=== PATIENT | male | born 1950 | race Caucasian/White ===

== ENCOUNTER → 2016-12-21 | Day surgery (SDC) | payer MEDICARE ==
[~2016-12-21] MED LIST: ACETAMINOPHEN 325 MG TAB ONE; ADVA250A INH; ALBU0.08 NEB; ALEN1TAB48 PO; ALPR1TAB3 PO; AMBI5TAB PO; AMLO5TAB2 PO; CALC600T25 PO; CLON.1 PO; FEXO15TA PO; HYDR-3516 PO; LACTATED RINGER'S 1000 ML INJ 1,000 ML ONE; LOVA40TA PO; MIDAZOLAM HCL 2 MG/2 ML VIAL ONE; MONT10TA2 PO; MULT-6 PO; POTA10TA8 PO; PRED5TAB PO; PROPOFOL 500 MG/50 ML BTL IV ONE; SERT-132 PO; SPIRCAP INH; VITA100T2 PO; ZANT150T2 PO; ZOFR4TAB3 SL
== END | disposition home or self-care (01) ==
LOC: ESDC 08:29
PROVIDERS: ATTEND Internal Medicine Gastroenterology
DX: R19.7 Diarrhea, unspecified (principal); K21.9 Gastro-esophageal reflux disease without esophagitis; K57.90 Diverticulosis of intestine, part unspecified, without perforation or abscess without bleeding; D12.2 Benign neoplasm of ascending colon; D12.3 Benign neoplasm of transverse colon; K62.1 Rectal polyp; K29.70 Gastritis, unspecified, without bleeding; K20.9 Esophagitis, unspecified
CPT/HCPCS: 00740; 00810; 43239; 45380; 45385; 88305; 88312; J2250; J3010; J7120

== ENCOUNTER 2017-03-01 17:06 | Emergency (ER) | payer MEDICARE ==
[~2017-03-01] VITALS: Ht 177.8 cm; Wt 108.0 kg
[~2017-03-01 17:06] MED LIST changes: -ACETAMINOPHEN 325 MG TAB ONE; -ALEN1TAB48 PO; -LACTATED RINGER'S 1000 ML INJ 1,000 ML ONE; -MIDAZOLAM HCL 2 MG/2 ML VIAL ONE; -PROPOFOL 500 MG/50 ML BTL IV ONE
[2017-03-01 17:13] VITALS: BP 137/89; PULSE 99; RESP 20; TEMP 98.7; O2SAT 94
[2017-03-01] MEDS ORDERED: LIDOCAINE 1%/EPINEPHrine 1:100,000 SOLN 20 ML VIAL INFIL ONE (17:15)
[2017-03-01] MEDS ORDERED: SODIUM CHLOR 0.9% 1000 ML INJ 1,000 ML IV SCH (17:15)
[2017-03-01] MEDS ORDERED: SODIUM CHLORIDE 0.9% FLUSH 10 ML FLUSH IV FLUSH PRN (17:15)
--- NOTE | 2017-03-01 17:19 | PD ---
HPI Chief Complaint: Head Injury Time Seen by Provider: 17:11 Travel History International Travel<30 days: No Contact w/Intl Traveler<30days: No Traveled to known affect area: No History of Present Illness HPI 66-year-old male brought in by his for evaluation of a head injury. About one year ago the patient had a traumatic subdural hematoma that required craniotomy. Today he states he tripped and fell, striking his head on his desk at home at around 3:00 PM. He sustained a laceration to his head. He is complaining of some pain to this area. He is denying neck or back pain. No other injuries. States that he drinks alcohol occasionally and had a few sips of scotch today. PFSH Past Medical History Arthritis: Yes Asthma: Yes Autoimmune Disease: No Blood Disorders: No Anxiety: Yes Depression: No Heart Rhythm Problems: No Cancer: Yes Cardiovascular Problems: Yes (edema) High Cholesterol: Yes Chemotherapy: No Chest Pain: No Congestive Heart Failure: No COPD: Yes Cerebrovascular Accident: Yes Diabetes: No Diminished Hearing: No Endocrine: No Gastrointestinal Disorders: No GERD: No Glaucoma: No Genitourinary: Yes Headaches: Yes Hepatitis: No Hiatal Hernia: No Hypertension: Yes Immune Disorder: No Implanted Vascular Access Dvce: Yes (3 cages in spine and 2 screws each in cervical spine, steel implant R foot) Kidney Stones: Yes (2000) Musculoskeletal: Yes Neurologic: No Psychiatric: No Reproductive: No Respiratory: Yes (COPD/O2 NEEDED) Immunizations Current: Yes Migraines: No Myocardial Infarction: No Radiation Therapy: No Renal Failure: No Seizures: No Sickle Cell Disease: No Sleep Apnea: Yes Thyroid Disease: No Ulcer: No Past Surgical History Abdominal Surgery: Yes AICD: No Appendectomy: Yes Arteriovenous Shunt: No Cardiac Surgery: No Cholecystectomy: No Ear Surgery: No Endocrine Surgery: No Eye Surgery: No Genitourinary Surgery: No Gynecologic Surgery: No Insulin Pump: No Joint Replacement: Yes (BILAT TOTAL KNEE) Neurologic Surgery: Yes (left SDH drained 12/2015) Oral Surgery: No Pacemaker: No Thoracic Surgery: No Tonsillectomy: Yes Other Surgery: Yes (craniatomy,appendectomy, CTS surgery, 19 sinus surgeries) Social History Alcohol Use: Yes (1 pint of vodka per week ) Tobacco Use: Yes (QUIT 1999, had smoked 46 years.) Substance Use: No Allergies-Medications (Allergen,Severity, Reaction): Coded Allergies: Aspirin (Verified Allergy, Severe, ANAPHYLACTIC SHOCK, 03/01/17) SHOCK Nonsteroidal Anti-Inflammatory Agts (Verified Allergy, Severe, ANAPHYLACTIC SHOCK, 03/01/17) SHOCK Lisinopril (Verified Allergy, Mild, 03/01/17) Reported Meds & Prescriptions Reported Meds & Active Scripts Active Ambien (Zolpidem Tartrate) 5 Mg Tab 5 Mg PO HS PRN 10 Days Reported Alendronate (Alendronate Sodium) 70 Mg Tab 70 Mg PO Q7D Spiriva Handihaler (Tiotropium Inh) 18 Mcg Cap 18 Mcg INH DAILY 1 capsule = 18 mcg Potassium Chloride CR (Potassium Chloride) 10 Meq Tab 10 Meq PO BID Zantac (Ranitidine HCl) 150 Mg Tab 150 Mg PO BID Singulair (Montelukast Sodium) 10 Mg Tab 10 Mg PO HS Prednisone 5 Mg Tab 5 Mg PO DAILY Lovastatin 40 Mg Tab 40 Mg PO DAILY Centrum (Multiple Vitamins W/ Minerals) 1 Tab 1 Tab PO DAILY Calcium (Calcium Carbonate) 600 Mg Tab 1 Tab PO BID Alprazolam 1 Mg Tab 2 Mg PO BID PRN Albuterol Neb (Albuterol Sulfate) 2.5 Mg/3 Ml Neb 2.5 Mg NEB QID NEB Jessica Allergy (Fexofenadine HCl) 180 Mg Tab 180 Mg PO HS Amlodipine (Amlodipine Besylate) 5 Mg Tab 5 Mg PO DAILY Advair Diskus Inh (Fluticasone-Salmeterol Inh) 250-50 Mcg/Blist Aer 1 Puff INH BID Rinse mouth after use. Review of Systems Except as stated in HPI: all other systems reviewed are Neg Physical Exam Narrative GENERAL: Well-developed, well-nourished, awake, alert, GCS 15, no acute distress. SKIN: Focused skin assessment warm/dry. Posterior/superior scalp with horizontal laceration approximately 5 cm in length, moderate depth, no visible contamination, no active bleeding, galea intact. HEAD: Atraumatic. Normocephalic. EYES: Pupils equal, round, 3 mm, reactive to light. No scleral icterus. No injection or drainage. ENT: No nasal bleeding or discharge. Mucous membranes pink and moist. NECK: Trachea midline. No JVD. No midline vertebral step-off or tenderness. CARDIOVASCULAR: Regular rate and rhythm. RESPIRATORY: No accessory muscle use. Clear to auscultation. Breath sounds equal bilaterally. GASTROINTESTINAL: Abdomen soft, non-tender, nondistended. MUSCULOSKELETAL: No obvious deformities. No clubbing. No cyanosis. No edema. NEUROLOGICAL: Awake and alert. No obvious cranial nerve deficits. Motor grossly within normal limits. Normal speech. PSYCHIATRIC: Appropriate mood and affect; insight and judgment normal. Data Data Last Documented VS Vital Signs Date Time Temp Pulse Resp B/P Pulse Ox O2 Delivery O2 Flow Rate FiO2 03/01/17 18:16 90 18 135/95 95 Room Air 03/01/17 17:13 98.7 Orders Basic Metabolic Panel (Bmp) (03/01/17 17:15) Complete Blood Count With Diff (03/01/17 17:15) Prothrombin Time / Inr (Pt) (03/01/17 17:15) Act Partial Throm Time (Ptt) (03/01/17 17:15) Iv Access Insert/Monitor (03/01/17 17:15) Ecg Monitoring (03/01/17 17:15) Oximetry (03/01/17 17:15) Sodium Chlor 0.9% 1000 Ml Inj (Ns 1000 M (03/01/17 17:15) Sodium Chloride 0.9% Flush (Ns Flush) (03/01/17 17:15) Ct Brain W/O Iv Contrast(Rout) (03/01/17 ) Ct Cerv Spine W/O Contrast (03/01/17 ) Alcohol (Ethanol) (03/01/17 17:15) Lidocai-Epi 1%-1:100,000 Inj (Xylocaine- (03/01/17 17:15) Acetamin-Hydrocod 325-5 Mg ([place] 5-325 (03/01/17 18:00) Labs Laboratory Tests Test 03/01/17 17:40 White Blood Count 4.8 TH/MM3 Red Blood Count 4.10 MIL/MM3 Hemoglobin 13.8 GM/DL Hematocrit 40.4 % Mean Corpuscular Volume 98.4 FL Mean Corpuscular Hemoglobin 33.6 PG Mean Corpuscular Hemoglobin 34.2 % Concent Red Cell Distribution Width 13.5 % Platelet Count 157 TH/MM3 Mean Platelet Volume 8.9 FL Neutrophils (%) (Auto) 68.9 % Lymphocytes (%) (Auto) 19.3 % Monocytes (%) (Auto) 7.4 % Eosinophils (%) (Auto) 3.4 % Basophils (%) (Auto) 1.0 % Neutrophils # (Auto) 3.2 TH/MM3 Lymphocytes # (Auto) 0.9 TH/MM3 Monocytes # (Auto) 0.4 TH/MM3 Eosinophils # (Auto) 0.2 TH/MM3 Basophils # (Auto) 0.0 TH/MM3 CBC Comment DIFF FINAL Differential Comment Prothrombin Time 9.9 SEC Prothromb Time International 0.9 RATIO Ratio Activated Partial 23.8 SEC Thromboplast Time Sodium Level 143 MEQ/L Potassium Level 4.1 MEQ/L Chloride Level 106 MEQ/L Carbon Dioxide Level 25.4 MEQ/L Anion Gap 12 MEQ/L Blood Urea Nitrogen 16 MG/DL Creatinine 0.96 MG/DL Estimat Glomerular Filtration 78 ML/MIN Rate Random Glucose 159 MG/DL Calcium Level 8.1 MG/DL Ethyl Alcohol Level 83 MG/DL [facility] Medical Decision Making Medical Screen Exam Complete: Yes Emergency Medical Condition: Yes Differential Diagnosis Intracranial trauma, scalp laceration, cervical spine injury Narrative Course Vital signs show heart rate 90, blood pressure 135/95, pulse ox 98% on room air , oral temp of 98.7F. CBC is unremarkable. BMP is remarkable for random glucose 159, otherwise unremarkable. Alcohol level is 83. CT head: CONCLUSION: No bleed or other acute intracranial abnormality. Chronic pansinusitis again noted. CT cervical spine: CONCLUSION: No fracture or acute malalignment of the cervical spine. Surgical and degenerative changes as above. Laceration repaired by me with catarina. See procedure note. Patient was made aware of all findings. He is comfortable. He is anxious to go home. Suture removal in 10-14 days. PMD follow-up this week. Patient informed on when to return to the emergency department. He verbalizes understanding and agreement with plan. Procedures Procedure Narrative LACERATION LOCATION: Left posterior/superior scalp LENGTH: 5 cm NUMBER OF STITCHES/CATARINA: 12 [place] REPAIR: The area of the laceration was prepped with Betadine and sterilely draped. The laceration was infiltrated with 4 cc of 1% lidocaine with epinephrine. The wound was copiously irrigated and explored without evidence of foreign body, tendon injury or neurovascular injury. The wound was closed using 12 catarina. This was a single layer repair. A sterile dressing was applied. The patient was advised to keep the dressing clean and dry. Patient tolerated the procedure well. Diagnosis Primary Impression: Scalp laceration Qualified Code: S01.01XA - Scalp laceration, initial encounter Additional Impression: Head injury Qualified Code: S09.90XA - Head injury, initial encounter Referrals: Primary Care Physician 3 days Additional Instructions: Follow-up with your primary care physician this week. Have catarina removed from your scalp 10-14 days. Return to the emergency department for worsening symptoms or any other concerns. Disposition: 01 DISCHARGE HOME Condition: Stable Maciel Castillo MD March 01, 2017 17:19
[2017-03-01] MEDS ORDERED: SPIRCAP INH (17:27)
[2017-03-01] MEDS ORDERED: ALEN1TAB48 PO (17:27)
[2017-03-01 17:45] VITALS: RESP 18; O2SAT 98
[2017-03-01 17:48] LABS: AUTOMATED NEUTROPHIL # 3.2 TH/MM3 (1.8-7.7); EOSINOPHIL # 0.2 TH/MM3 (0-0.4); EOSINOPHIL % 3.4 % (0.0-4.0); HEMATOCRIT 40.4 % (39.0-51.0); HEMO FLAGS DIFF FINAL; LYMPH % 19.3 % (9.0-44.0); LYMPHOCYTE # 0.9 TH/MM3 (1.0-4.8); MEAN CELL VOLUME 98.4 FL (80.0-100.0); MEAN CORPUSCULAR HEMOGLOBIN 33.6 PG (27.0-34.0); MEAN CORPUSCULAR HGB CONC 34.2 % (32.0-36.0); MONO % 7.4 % (0.0-8.0); NEUT % 68.9 % (16.0-70.0); PLATELET COUNT 157 TH/MM3 (150-450); RED CELL DISTRIBUTION WIDTH 13.5 % (11.6-17.2); WHITE BLOOD COUNT 4.8 TH/MM3 (4.0-11.0)
[2017-03-01 17:56] LABS: POTASSIUM 4.1 MEQ/L (3.5-5.1)
[2017-03-01 17:59] LABS: APTT (PATIENT) 23.8 SEC (24.3-30.1); BICARBONATE 25.4 MEQ/L (21.0-32.0); INTERNATIONAL NORMALIZED RATIO 0.9 RATIO; PROTHROMBIN TIME - PATIENT 9.9 SEC (9.8-11.6)
[2017-03-01] MEDS ORDERED: ACETAMINOPHEN/HYDROcodone 325 MG/5 MG TAB PO ONE (18:00)
[2017-03-01 18:16] VITALS: BP 135/95; PULSE 90; RESP 18; O2SAT 95
--- NOTE | 2017-03-01 18:37 | RADHPO ---
EXAM DATE/TIME: 03/01/2017 18:18 [facility] COMPARISON: CT BRAIN W/O CONTRAST, October 04, 2016, 6:04. INDICATIONS : Fall. Pain. RADIATION DOSE: 53.71 CTDIvol (mGy) MEDICAL HISTORY : Cerebrovascular disease. Chronic obstructive pulmonary disease. Hypertension. SURGICAL HISTORY : Tonsillectomy. Craniotomy. ENCOUNTER: Initial ACUITY: 1 day PAIN SCALE: 3/10 LOCATION: cranial TECHNIQUE: Multiple contiguous axial images were obtained of the head. Using automated exposure control and adj ustment of the mA and/or kV according to patient size, radiation dose was kept as low as reasonably a chievable to obtain optimal diagnostic quality images. FINDINGS: CEREBRUM: The ventricles are normal for age. No evidence of midline shift, mass lesion, hemorrhage or acute in farction. No extra-axial fluid collections are seen. POSTERIOR FOSSA: The cerebellum and brainstem are intact. The 4th ventricle is midline. The cerebellopontine angle i s unremarkable. EXTRACRANIAL: Severe pansinusitis again noted. SKULL: Left craniotomy changes are again noted. CONCLUSION: No bleed or other acute intracranial abnormality. Chronic pansinusitis again noted. Delfino Sierra MD on March 01, 2017 at 18:34 Board Certified Radiologist. This report was verified electronically.
--- NOTE | 2017-03-01 18:51 | RADHPO ---
EXAM DATE/TIME: 03/01/2017 18:18 [facility] COMPARISON: CT CERVICAL SPINE W/O CONTRAST, October 04, 2016, 6:04. INDICATIONS : Fall. Pain. RADIATION DOSE: 26.77 CTDIvol (mGy) MEDICAL HISTORY : Cerebrovascular disease. Chronic obstructive pulmonary disease. Hypertension. SURGICAL HISTORY : Tonsillectomy. Fusion, cervical.Craniotomy ENCOUNTER: Initial ACUITY: 1 day PAIN SCALE: 3/10 LOCATION: neck TECHNIQUE: Volumetric scanning of the cervical spine was performed. Multiplanar reconstructions in the sagittal, coronal and oblique axial planes were performed. Using automated exposure control and adjustment o f the mA and/or kV according to patient size, radiation dose was kept as low as reasonably achievable to obtain optimal diagnostic quality images. FINDINGS: A few millimeters of degenerative retrolisthesis again seen at C3/C4. No fracture or acute appearing malalignment demonstrated. Vertebral bodies have normal height. Severe disc space narrowing with uncovertebral and facet osteoarthritis seen at C3/C4 and C5/C6. Ther e are moderate changes at the other levels. Patient has had previous discectomy and fusion with anter ior instrumentation at C6/C7, appears solidly bridged and unchanged, normal alignment. Juxtavertebral soft tissues are within normal limits. CONCLUSION: No fracture or acute malalignment of the cervical spine. Surgical and degenerative changes as above. Delfino Sierra MD on March 01, 2017 at 18:47 Board Certified Radiologist. This report was verified electronically.
== END 2017-03-01 19:18 | disposition home or self-care (01) ==
LOC: PHED 17:06
DX: S01.01XA Laceration without foreign body of scalp, initial encounter (principal); I10 Essential (primary) hypertension; J44.9 Chronic obstructive pulmonary disease, unspecified; J45.909 Unspecified asthma, uncomplicated; W01.190A Fall on same level from slipping, tripping and stumbling with subsequent striking against furniture, initial encounter; Y92.009 Unspecified place in unspecified non-institutional (private) residence as the place of occurrence of the external cause; Z79.899 Other long term (current) drug therapy; Z87.891 Personal history of nicotine dependence
CPT/HCPCS: 12002; 70450; 72125; 80048; 80307; 85025; 85610; 85730; 96360; 99284; J7030

== ENCOUNTER 2017-03-02 09:38 | Emergency (ER) | payer MEDICARE ==
[~2017-03-02] VITALS: Ht 177.8 cm; Wt 104.5 kg
[~2017-03-02 09:38] MED LIST changes: +ALEN1TAB48 PO
[2017-03-02 09:45] VITALS: BP 149/95; PULSE 99; RESP 18; TEMP 98.7; O2SAT 91
--- NOTE | 2017-03-02 10:23 | PD ---
HPI Chief Complaint: Alcohol/Drug Intoxication Time Seen by Provider: 09:43 Travel History International Travel<30 days: No Contact w/Intl Traveler<30days: No Traveled to known affect area: No History of Present Illness HPI This patient called paramedics because her was drinking and became intoxicated. He did not get up to use the restroom and he urinated on himself so she called 911. His only complaint is headache from his fall yesterday. We saw him here at this ER 16 hours ago when he got intoxicated and fell and struck his head. He had 12 catarina placed in his scalp. He had CT scan of brain and C-spine which were both negative. He has no injury or fall today. He admits to drinking. Symptoms severity is mild. Duration one day. No alleviating factors. PFSH Past Medical History Arthritis: Yes Asthma: Yes Autoimmune Disease: No Blood Disorders: No Anxiety: Yes Depression: No Heart Rhythm Problems: No Cancer: Yes Cardiovascular Problems: Yes (edema) High Cholesterol: Yes Chemotherapy: No Chest Pain: No Congestive Heart Failure: No COPD: Yes Cerebrovascular Accident: Yes Diabetes: No Diminished Hearing: No Endocrine: No Gastrointestinal Disorders: No GERD: No Glaucoma: No Genitourinary: Yes Headaches: Yes Hepatitis: No Hiatal Hernia: No Heparin Induced Thrombocytopen: No Hypertension: Yes Immune Disorder: No Implanted Vascular Access Dvce: Yes (3 cages in spine and 2 screws each in cervical spine, steel implant R foot) Kidney Stones: Yes (2000) Musculoskeletal: Yes Neurologic: No Psychiatric: No Reproductive: No Respiratory: Yes (COPD/O2 NEEDED) Immunizations Current: Yes Migraines: No Myocardial Infarction: No Radiation Therapy: No Renal Failure: No Seizures: No Sickle Cell Disease: No Sleep Apnea: Yes Thyroid Disease: No Ulcer: No Past Surgical History Abdominal Surgery: Yes AICD: No Appendectomy: Yes Arteriovenous Shunt: No Cardiac Surgery: No Cholecystectomy: No Ear Surgery: No Endocrine Surgery: No Eye Surgery: No Genitourinary Surgery: No Gynecologic Surgery: No Insulin Pump: No Joint Replacement: Yes (BILAT TOTAL KNEE) Neurologic Surgery: Yes (left SDH drained 12/2015) Oral Surgery: No Pacemaker: No Thoracic Surgery: No Tonsillectomy: Yes Other Surgery: Yes (craniatomy,appendectomy, CTS surgery, 19 sinus surgeries) Social History Alcohol Use: Yes (1 pint of vodka per week ) Tobacco Use: Yes (QUIT 1999, had smoked 46 years.) Substance Use: No Allergies-Medications (Allergen,Severity, Reaction): Coded Allergies: Aspirin (Verified Allergy, Severe, ANAPHYLACTIC SHOCK, 03/02/17) SHOCK Nonsteroidal Anti-Inflammatory Agts (Verified Allergy, Severe, ANAPHYLACTIC SHOCK, 03/02/17) SHOCK Lisinopril (Verified Allergy, Mild, 03/02/17) Reported Meds & Prescriptions Reported Meds & Active Scripts Active Ambien (Zolpidem Tartrate) 5 Mg Tab 5 Mg PO HS PRN 10 Days Reported Alendronate (Alendronate Sodium) 70 Mg Tab 70 Mg PO Q7D Spiriva Handihaler (Tiotropium Inh) 18 Mcg Cap 18 Mcg INH DAILY 1 capsule = 18 mcg Potassium Chloride CR (Potassium Chloride) 10 Meq Tab 10 Meq PO BID Zantac (Ranitidine HCl) 150 Mg Tab 150 Mg PO BID Singulair (Montelukast Sodium) 10 Mg Tab 10 Mg PO HS Prednisone 5 Mg Tab 5 Mg PO DAILY Lovastatin 40 Mg Tab 40 Mg PO DAILY Centrum (Multiple Vitamins W/ Minerals) 1 Tab 1 Tab PO DAILY Calcium (Calcium Carbonate) 600 Mg Tab 1 Tab PO BID Alprazolam 1 Mg Tab 2 Mg PO BID PRN Albuterol Neb (Albuterol Sulfate) 2.5 Mg/3 Ml Neb 2.5 Mg NEB QID NEB Jessica Allergy (Fexofenadine HCl) 180 Mg Tab 180 Mg PO HS Amlodipine (Amlodipine Besylate) 5 Mg Tab 5 Mg PO DAILY Advair Diskus Inh (Fluticasone-Salmeterol Inh) 250-50 Mcg/Blist Aer 1 Puff INH BID Rinse mouth after use. Review of Systems General / Constitutional: No: Fever HENT: Positive: Headaches Cardiovascular: No: Chest Pain or Discomfort Respiratory: No: Cough Gastrointestinal: No: Vomiting, Abdominal Pain Genitourinary: No: Hematuria Skin: No Rash Psychiatric: Positive: Substance Abuse, No: Suicidal Ideations Physical Exam Narrative GENERAL: Well-nourished, well-developed patient. SKIN: Focused skin assessment warm/dry. HEAD: Normocephalic. Has a stapled wound on the scalp posterior left side with no dehiscence or sign of infection EYES: No scleral icterus. No injection or drainage. NECK: Supple, trachea midline. No JVD or lymphadenopathy. CARDIOVASCULAR: Regular rate and rhythm without murmurs, gallops, or rubs. RESPIRATORY: Breath sounds equal bilaterally. No accessory muscle use. GASTROINTESTINAL: Abdomen soft, non-tender, nondistended. MUSCULOSKELETAL: No cyanosis, or edema. BACK: Nontender without obvious deformity. No CVA tenderness. Data Data Last Documented VS Vital Signs Date Time Temp Pulse Resp B/P Pulse Ox O2 Delivery O2 Flow Rate FiO2 03/02/17 09:45 98.7 99 18 149/95 91 03/02/17 09:45 Nasal Cannula 2 MDM Medical Decision Making Medical Screen Exam Complete: Yes Emergency Medical Condition: Yes Medical Record Reviewed: Yes Differential Diagnosis Alcohol intoxication, postconcussive syndrome, malingering Narrative Course I have reviewed the patient's electronic medical record. Reviewed his visit from yesterday including labs and CT scanning This patient has normal vital signs and no significant complaint. He has mild headache where he was injured yesterday but CT scan confirms no intracranial hemorrhage or skull fracture. His wound looks good. He is an alcoholic who drinks daily. He admits to drinking today and I don't feel lab value of alcohol is going to change any management here. Patient is not feeling suicidal. He does have a problem with alcohol obviously. Of note, police officers showed up after the patient was already here in room 9 and said they were going to write a [place] act form because he had refused to get evaluated and they thought he should be medically evaluated. I felt this was an inappropriate Burton act as he is not suicidal or harm to himself. He is here sitting in room 9 ready to get evaluated and not refusing to be evaluated so there really is no indication for this Burton act. They decided not to write it. If they had written the Burton act then he would need to be transported up to the main hospital for psychiatric evaluation which I don't feel would be productive in this case. What he needs most is to decide for himself that he needs to kick his alcohol habit and go to [facility] alcohol rehabilitation services. I don't feel this works when he is forced and I don't feel writing a Earl act would be helpful. He has to decide that he is willing to make the change and put commitment into it. At This point he does not seem willing to do so. His insight is poor. The nurses called and spoke with his who is coming to pick him up. Diagnosis Primary Impression: Alcohol abuse Additional Impression: Head ache Qualified Code: G44.319 - Acute post-traumatic headache, not intractable Additional Instructions: The patient was advised to follow up with their physician and return if they worsen. Limit alcohol consumption I am recommending he go to [facility] alcohol rehabilitation services Med/Other Pt SpecificInfo: Other Disposition: 01 DISCHARGE HOME Condition: Stable Clayton Langston MD March 02, 2017 10:23
== END 2017-03-02 10:36 | disposition home or self-care (01) ==
LOC: PHED 09:38
DX: G44.319 Acute post-traumatic headache, not intractable (principal); F10.10 Alcohol abuse, uncomplicated; J45.909 Unspecified asthma, uncomplicated; J44.9 Chronic obstructive pulmonary disease, unspecified; I10 Essential (primary) hypertension; E78.00 Pure hypercholesterolemia, unspecified; W01.0XXD Fall on same level from slipping, tripping and stumbling without subsequent striking against object, subsequent encounter; Z86.73 Personal history of transient ischemic attack (TIA), and cerebral infarction without residual deficits; Z96.653 Presence of artificial knee joint, bilateral; Z87.891 Personal history of nicotine dependence

== ENCOUNTER 2017-05-13 20:32 | Emergency (ER) | payer MEDICARE ==
[~2017-05-13] VITALS: Ht 172.7 cm; Wt 100.0 kg
[~2017-05-13 20:32] MED LIST changes: -CLON.1 PO; -HYDR-3516 PO; -SERT-132 PO; -VITA100T2 PO; -ZOFR4TAB3 SL
[2017-05-13 20:43] VITALS: BP 139/79; PULSE 94; RESP 18; TEMP 98.1; O2SAT 93
[2017-05-13 21:40] LABS: AUTOMATED NEUTROPHIL # 4.4 TH/MM3 (1.8-7.7); BASOPHIL # 0.1 TH/MM3 (0-0.2); BASOPHIL % 1.4 % (0.0-2.0); EOSINOPHIL # 0.2 TH/MM3 (0-0.4); EOSINOPHIL % 3.5 % (0.0-4.0); HEMATOCRIT 40.1 % (39.0-51.0); HEMO FLAGS DIFF FINAL; LYMPH % 21.2 % (9.0-44.0); LYMPHOCYTE # 1.4 TH/MM3 (1.0-4.8); MEAN CORPUSCULAR HEMOGLOBIN 35.2 PG (27.0-34.0); MEAN CORPUSCULAR HGB CONC 34.5 % (32.0-36.0); MONO % 6.4 % (0.0-8.0); NEUT % 67.5 % (16.0-70.0); PLATELET COUNT 175 TH/MM3 (150-450); RED BLOOD COUNT 3.93 MIL/MM3 (4.50-5.90); RED CELL DISTRIBUTION WIDTH 14.3 % (11.6-17.2); WHITE BLOOD COUNT 6.5 TH/MM3 (4.0-11.0)
--- NOTE | 2017-05-13 21:40 | RADRPT ---
EXAM DATE/TIME: 05/13/2017 21:24 [facility] COMPARISON: CT BRAIN W/O CONTRAST, March 01, 2017, 18:18. INDICATIONS : Trauma, fall into mirror. RADIATION DOSE: 56.35 CTDIvol (mGy) MEDICAL HISTORY : None SURGICAL HISTORY : None. ENCOUNTER: Initial ACUITY: 1 day PAIN SCALE: 5/10 LOCATION: cranial TECHNIQUE: Multiple contiguous axial images were obtained of the head. Using automated exposure control and adj ustment of the mA and/or kV according to patient size, radiation dose was kept as low as reasonably a chievable to obtain optimal diagnostic quality images. DICOM format image data is available electro nically for review and comparison. FINDINGS: There is no evidence for intracranial hemorrhage, mass effect, mass lesions, or edema. The visualize d bony structures appear intact. Slight degree of brain atrophy is seen. Slight periventricular whit e matter changes are seen nonspecific mostly consistent with chronic small vessel ischemic changes. There are no signs of acute infarction for technique. There is extensive opacification of multiple si nuses almost complete opacification of eithmoid air cells, bilateral frontal sinuses probable polypos is in the patient's nasal cavities bilaterally. CONCLUSION: 1. Slight atrophic and small vessel ischemic changes without any evidence for acute hemorrhage or mas s effect. 2. 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 Radha Christensen MD on May 13, 2017 at 21:36 Board Certified Radiologist. This report was verified electronically.
--- NOTE | 2017-05-13 21:47 | RADRPT ---
EXAM DATE/TIME: 05/13/2017 21:26 [facility] COMPARISON: CT CERVICAL SPINE W/O CONTRAST, March 01, 2017, 18:18 INDICATIONS : Trauma, fall into mirror. RADIATION DOSE: 28.88 CTDIvol (mGy) MEDICAL HISTORY : None SURGICAL HIST.ORY : Fusion, cervical. ENCOUNTER: Initial ACUITY: 1 day PAIN SCALE: 5/10 LOCATION: neck TECHNIQUE: Volumetric scanning of the cervical spine was performed. Multiplanar reconstructions in the sagittal, coronal and oblique axial planes were performed. Using automated exposure control and adjustment o f the mA and/or kV according to patient size, radiation dose was kept as low as reasonably achievable to obtain optimal diagnostic quality images. DICOM format image data is available electronically f or review and comparison. FINDINGS: No evidence of subluxation. No definite fracture is seen for technique. C2-C3: Slight degenerative changes are seen within the disc space and facets. There is no evidence for any s ignificant compromise to the thecal sac, or the exiting nerve roots. No appreciable thecal sac steno sis is seen. The neural foramina and lateral recess appear patent bilaterally. C3-C4: Moderate degenerative changes are seen within the disc space and facets. There is slight neural carlos a chapo compromise bilaterally due to bulging disc and hypertrophic changes. Slight bilateral lateral rec ess compromise is seen due to hypertrophic changes and bulging disc. Slight bulging disc and hypertro phic changes are seen with indentation on the thecal sac and no significant compromise to the thecal sac. C4-C5: Moderate degenerative changes are seen within the disc space and facets. Slight bulging disc and hype rtrophic changes are seen with indentation on the thecal sac and no significant compromise to the the crystal sac or the exiting nerve roots. C5-C6: Significant degenerative changes are seen within the disc space and facets. There is moderate neural foramina compromise on the right due to asymmetrical bulging disc and hypertrophic changes. Slight la teral recess compromise is seen on the right due to hypertrophic changes and bulging disc. Slight bul ging disc and hypertrophic changes are seen with indentation on the thecal sac and no significant com promise to the thecal sac. C6-C7: Surgical screws traverse the bodies of C6 and C7 with a plate placed anteriorly and evidence for ante rior fusion. There is moderate neural foramina compromise bilaterally due to bulging disc and hypertr ophic changes. No appreciable thecal sac stenosis is seen. C7-T1: Slight degenerative changes are seen within the disc space and facets. There is slight neural foramin a compromise on the left due to asymmetrical bulging disc and hypertrophic changes. CONCLUSION: Neural foramina compromise bilateral C3-C4, right C5-C6, bilateral C6-C7, left C7-T1 and no appreciab le thecal sac stenosis is seen. Radha Christensen MD on May 13, 2017 at 21:38 Board Certified Radiologist. This report was verified electronically.
--- NOTE | 2017-05-13 21:56 | RADRPT ---
EXAM DATE/TIME: 05/13/2017 21:26 [place] COMPARISON: No previous studies available for comparison. INDICATIONS : Trauma, fall into mirror. RADIATION DOSE: 21.96 CTDIvol (mGy) MEDICAL HISTORY : None SURGICAL HISTORY : None. ENCOUNTER: Initial ACUITY: 1 day PAIN SCORE: 5/10 LOCATION: facial TECHNIQUE: Volumetric scanning of the facial bones was performed. Using automated exposure control and adjustme nt of the mA and/or kV according to patient size, radiation dose was kept as low as reasonably achiev able to obtain optimal diagnostic quality images. DICOM format image data is available electronicall y for review and comparison. FINDINGS: There is no acute fracture. There is extensive opacification of multiple sinuses with completely opac ified bilateral frontal sinuses, all of the eithmoid air cells with extensive opacification of right maxillary sinus. There is evidence for prior surgery with an opening to the lateral wall of the left maxillary sinus which measures 1.9 cm in size. Sinonasal polyposis is suspected with soft tissue dens ity filling the entire superior meatus. The middle and inferior turbinates have been resected surgica lly. There is an approximate 1.2 cm osteoma in right frontal sinus and there are multiple radiopaque densities probably calcifications in the patient's nose soft tissues on the left side the largest 4-5 mm in size. CONCLUSION: 1. No evidence of acute fracture. 2. Extensive sinonasal polyposis. Radha Christensen MD on May 13, 2017 at 21:50 Board Certified Radiologist. This report was verified electronically.
[2017-05-13 22:02] LABS: ANION GAP 8 MEQ/L (5-15); BICARBONATE 26.2 MEQ/L (21.0-32.0); BLOOD UREA NITROGEN 10 MG/DL (7-18); CHLORIDE 108 MEQ/L (98-107); GLOMERULAR FILTRATION RATE 72 ML/MIN (>89); SODIUM (NA) 142 MEQ/L (136-145)
[2017-05-13 22:04] LABS: ALT (GPT) 48 U/L (12-78); AST (GOT) 35 U/L (15-37)
[2017-05-13 22:06] LABS: ALKALINE PHOSPHATASE 61 U/L (45-117); TOTAL BILIRUBIN ADULT 0.3 MG/DL (0.2-1.0)
[2017-05-13 22:15] VITALS: BP 127/78; PULSE 102; RESP 20; O2SAT 97
--- NOTE | 2017-05-13 22:18 | PD ---
Physical Exam Date Seen by Provider: May 13, 2017 Time Seen by Provider: 22:17 Narrative I was asked by Dr. Menendez to repair lacerations to the patient's forehead and left eyebrow. Data Data Last Documented VS Vital Signs Date Time Temp Pulse Resp B/P Pulse Ox O2 Delivery O2 Flow Rate FiO2 05/13/17 22:15 102 20 127/78 97 Nasal Cannula 2 05/13/17 20:[address] Brain W/O Iv Contrast(Rout) (05/13/17 ) Ct Facial Bones W/O Iv Cont (05/13/17 ) Ct Cerv Spine W/O Contrast (05/13/17 ) Iv Access Insert/Monitor (05/13/17 21:05) Complete Blood Count With Diff (05/13/17 21:05) Comprehensive Metabolic Panel (05/13/17 21:05) Alcohol (Ethanol) (05/13/17 21:05) Labs Laboratory Tests Test 05/13/17 21:10 White Blood Count 6.5 TH/MM3 Red Blood Count 3.93 MIL/MM3 Hemoglobin 13.8 GM/DL Hematocrit 40.1 % Mean Corpuscular Volume 102.0 FL Mean Corpuscular Hemoglobin 35.2 PG Mean Corpuscular Hemoglobin 34.5 % Concent Red Cell Distribution Width 14.3 % Platelet Count 175 TH/MM3 Mean Platelet Volume 10.1 FL Neutrophils (%) (Auto) 67.5 % Lymphocytes (%) (Auto) 21.2 % Monocytes (%) (Auto) 6.4 % Eosinophils (%) (Auto) 3.5 % Basophils (%) (Auto) 1.4 % Neutrophils # (Auto) 4.4 TH/MM3 Lymphocytes # (Auto) 1.4 TH/MM3 Monocytes # (Auto) 0.4 TH/MM3 Eosinophils # (Auto) 0.2 TH/MM3 Basophils # (Auto) 0.1 TH/MM3 CBC Comment DIFF FINAL Differential Comment Sodium Level 142 MEQ/L Potassium Level 4.0 MEQ/L Chloride Level 108 MEQ/L Carbon Dioxide Level 26.2 MEQ/L Anion Gap 8 MEQ/L Blood Urea Nitrogen 10 MG/DL Creatinine 1.03 MG/DL Estimat Glomerular Filtration 72 ML/MIN Rate Random Glucose 123 MG/DL Calcium Level 8.1 MG/DL Total Bilirubin 0.3 MG/DL Aspartate Amino Transf 35 U/L (AST/SGOT) Alanine Aminotransferase 48 U/L (ALT/SGPT) Alkaline Phosphatase 61 U/L Total Protein 5.9 GM/DL Albumin 3.2 GM/DL Ethyl Alcohol Level 214 MG/DL MDM Supervised Visit with XAVI: No Procedures Procedure Narrative LACERATION LOCATION: Forehead LENGTH: 4 cm NUMBER OF STITCHES/ISABELLE: 8 simple interrupted sutures REPAIR: The area of the laceration was prepped with Betadine and sterilely draped. The laceration was infiltrated with 1% lidocaine with epinephrine. The wound was copiously irrigated and explored without evidence of foreign body, tendon injury or neurovascular injury. The wound was closed using 5-0 prolene. This was a single layer repair. A sterile dressing was applied. The patient was advised to keep the dressing clean and dry. Patient tolerated the procedure well. LACERATION LOCATION: Left eyebrow LENGTH: 2 cm NUMBER OF STITCHES/ISABELLE: 4 simple interrupted sutures REPAIR: The area of the laceration was prepped with Betadine and sterilely draped. The laceration was infiltrated with 1% lidocaine with epinephrine. The wound was copiously irrigated and explored without evidence of foreign body, tendon injury or neurovascular injury. The wound was closed using 5-0 prolene. This was a single layer repair. A sterile dressing was applied. The patient was advised to keep the dressing clean and dry. Patient tolerated the procedure well. Cielo Courtney May 13, 2017 22:18
--- NOTE | 2017-05-13 23:07 | PD ---
HPI Chief Complaint: Laceration/Skin Injury Time Seen by Provider: 21:05 Travel History International Travel<30 days: No Contact w/Intl Traveler<30days: No Traveled to known affect area: No History of Present Illness HPI Is a 67-year-old man who presents to the emergency department intoxicated after he fell into a large [place]. He has multiple lacerations on his forehead. EMS reports the bleeding is not controlled. They brought him in emergently. Patient has no complaints. History Past Medical History Narrative Medical Alcohol abuse Tetanus Vaccination: < 5 Years Social History Alcohol Use: Yes (1 pint of vodka per week ) Tobacco Use: Yes (QUIT 1999, had smoked 46 years.) Allergies-Medications (Allergen,Severity, Reaction): Coded Allergies: Aspirin (Verified Allergy, Severe, ANAPHYLACTIC SHOCK, 05/13/17) SHOCK Nonsteroidal Anti-Inflammatory Agts (Verified Allergy, Severe, ANAPHYLACTIC SHOCK, 05/13/17) SHOCK Lisinopril (Verified Allergy, Mild, 05/13/17) Reported Meds & Prescriptions Reported Meds & Active Scripts Active Ambien (Zolpidem Tartrate) 5 Mg Tab 5 Mg PO HS PRN 10 Days Reported Alendronate (Alendronate Sodium) 70 Mg Tab 70 Mg PO Q7D Spiriva Handihaler (Tiotropium Inh) 18 Mcg Cap 18 Mcg INH DAILY 1 capsule = 18 mcg Zantac (Ranitidine HCl) 150 Mg Tab 150 Mg PO BID Singulair (Montelukast Sodium) 10 Mg Tab 10 Mg PO HS Prednisone 5 Mg Tab 5 Mg PO DAILY Lovastatin 40 Mg Tab 40 Mg PO DAILY Calcium (Calcium Carbonate) 600 Mg Tab 1 Tab PO BID Alprazolam 1 Mg Tab 2 Mg PO BID PRN Albuterol Neb (Albuterol Sulfate) 2.5 Mg/3 Ml Neb 2.5 Mg NEB QID NEB Jessica Allergy (Fexofenadine HCl) 180 Mg Tab 180 Mg PO HS Amlodipine (Amlodipine Besylate) 5 Mg Tab 5 Mg PO DAILY Advair Diskus Inh (Fluticasone-Salmeterol Inh) 250-50 Mcg/Blist Aer 1 Puff INH BID Rinse mouth after use. Review of Systems Except as stated in HPI: all other systems reviewed are Neg Physical Exam Narrative GENERAL: 67-year-old man, covered in blood on a backboard in full spinal mobilization. SKIN: Focused skin assessment warm/dry. HEAD: Atraumatic. Normocephalic. EYES: Pupils equal and round. No scleral icterus. No injection or drainage. ENT: He is a medium size laceration across the forehead. He is a small laceration across the nasal bridge of the source of all the bleeding. He has active arterial bleeding on initial evaluation. There is a small puncture wound underneath the left eye, and a small laceration it's macerated on the left brow. NECK: Trachea midline. C-collar in place. No tenderness. CARDIOVASCULAR: Regular rate and rhythm. No murmur appreciated. RESPIRATORY: No accessory muscle use. Clear to auscultation. Breath sounds equal bilaterally. GASTROINTESTINAL: Abdomen soft, non-tender, nondistended. Hepatic and splenic margins not palpable. MUSCULOSKELETAL: No obvious deformities. No clubbing. No cyanosis. No edema. NEUROLOGICAL: Awake and alert. Patient's intoxicated. No focal deficits. Data Data Last Documented VS Vital Signs Date Time Temp Pulse Resp B/P Pulse Ox O2 Delivery O2 Flow Rate FiO2 05/13/17 22:15 102 20 127/78 97 Nasal Cannula 2 05/13/17 20:[address] Brain W/O Iv Contrast(Rout) (05/13/17 ) Ct Facial Bones W/O Iv Cont (05/13/17 ) Ct Cerv Spine W/O Contrast (05/13/17 ) Iv Access Insert/Monitor (05/13/17 21:05) Complete Blood Count With Diff (05/13/17 21:05) Comprehensive Metabolic Panel (05/13/17 21:05) Alcohol (Ethanol) (05/13/17 21:05) Labs Laboratory Tests Test 05/13/17 21:10 White Blood Count 6.5 TH/MM3 Red Blood Count 3.93 MIL/MM3 Hemoglobin 13.8 GM/DL Hematocrit 40.1 % Mean Corpuscular Volume 102.0 FL Mean Corpuscular Hemoglobin 35.2 PG Mean Corpuscular Hemoglobin 34.5 % Concent Red Cell Distribution Width 14.3 % Platelet Count 175 TH/MM3 Mean Platelet Volume 10.1 FL Neutrophils (%) (Auto) 67.5 % Lymphocytes (%) (Auto) 21.2 % Monocytes (%) (Auto) 6.4 % Eosinophils (%) (Auto) 3.5 % Basophils (%) (Auto) 1.4 % Neutrophils # (Auto) 4.4 TH/MM3 Lymphocytes # (Auto) 1.4 TH/MM3 Monocytes # (Auto) 0.4 TH/MM3 Eosinophils # (Auto) 0.2 TH/MM3 Basophils # (Auto) 0.1 TH/MM3 CBC Comment DIFF FINAL Differential Comment Sodium Level 142 MEQ/L Potassium Level 4.0 MEQ/L Chloride Level 108 MEQ/L Carbon Dioxide Level 26.2 MEQ/L Anion Gap 8 MEQ/L Blood Urea Nitrogen 10 MG/DL Creatinine 1.03 MG/DL Estimat Glomerular Filtration 72 ML/MIN Rate Random Glucose 123 MG/DL Calcium Level 8.1 MG/DL Total Bilirubin 0.3 MG/DL Aspartate Amino Transf 35 U/L (AST/SGOT) Alanine Aminotransferase 48 U/L (ALT/SGPT) Alkaline Phosphatase 61 U/L Total Protein 5.9 GM/DL Albumin 3.2 GM/DL Ethyl Alcohol Level 214 MG/DL MDM Medical Decision Making Medical Screen Exam Complete: Yes Emergency Medical Condition: Yes Interpretation(s) CT head, neck, face, no bony injuries. Differential Diagnosis Laceration, head injury, neck injury, other Narrative Course Medical decision making 67-year-old man extensive facial lacerations with active bleeding. These are controlled at the bedside. CT scans are negative. Outpatient follow-up. He's waiting on the ride. Procedures Procedure Narrative LACERATION LOCATION: Nasal bridge LENGTH: 1 cm NUMBER OF STITCHES/ISABELLE: 8 running interlocked suture REPAIR: The area was anesthetized 1% plain lidocaine over the nasal bridge and 1 % lidocaine with epinephrine ever else. 6-0 Prolene was used to do a running interlocked suture over the nasal bridge for hemostasis with good effect. Cielo Davila repaired the laceration over the forehead and the left brow. I placed a single 6-0 Vicryl in a small area below the left eye in a simple interrupted fashion. Diagnosis Primary Impression: Facial laceration Additional Impression: Alcohol intoxication Additional Instructions: Do not drink alcohol. Keep wound clean and dry. Do not wet for 24 hours. After 24 hours and clean the wound gently with soap and water. Gently clean wound twice daily with soap and water. Do not soak wound. No swimming, hot tubs, or allowing wound to get too wet. Apply antibiotic ointment to wound twice daily. Return to the emergency department for any worsening pain, swelling, redness, significant bleeding, or any other new or worsening symptoms. Follow-up with her primary doctor in 7 days for suture removal. Disposition: 01 DISCHARGE HOME Condition: Stable Dale Menendez MD May 13, 2017 23:07
== END 2017-05-14 00:11 | disposition home or self-care (01) ==
LOC: NEPE 20:32
DX: S01.81XA Laceration without foreign body of other part of head, initial encounter (principal); F10.129 Alcohol abuse with intoxication, unspecified; S01.21XA Laceration without foreign body of nose, initial encounter; Z79.899 Other long term (current) drug therapy; Z79.52 Long term (current) use of systemic steroids; W19.XXXA Unspecified fall, initial encounter
CPT/HCPCS: 12014; 70450; 70486; 72125; 80053; 80307; 85025

== ENCOUNTER 2017-05-22 10:59 | Emergency (ER) | payer MEDICARE ==
[~2017-05-22] VITALS: Ht 170.2 cm; Wt 100.0 kg
[~2017-05-22 10:59] MED LIST changes: -MULT-6 PO; -POTA10TA8 PO
[2017-05-22 11:01] VITALS: BP 163/91; PULSE 82; RESP 14; TEMP 98.2; O2SAT 97
--- NOTE | 2017-05-22 11:14 | PD ---
HPI . here for suture removal Chief Complaint: Wound/Suture/Staple Re-Check Time Seen by Provider: 11:14 Travel History International Travel<30 days: No Contact w/Intl Traveler<30days: No Traveled to known affect area: No History of Present Illness HPI 67-year-old male here for suture removal. Patient had sutures placed 7 days ago and tells me he has been using Neosporin daily. He has no complaints with the sutures. He was concerned about the one over his nasal bridge. He also has one solitary sutures just below his eye and he wants that one out today. He has no other complaints. PFSH Past Medical History Arthritis: Yes Asthma: Yes Autoimmune Disease: No Blood Disorders: No Anxiety: Yes Depression: No Heart Rhythm Problems: No Cancer: Yes Cardiovascular Problems: Yes (edema) High Cholesterol: Yes Chemotherapy: No Chest Pain: No Congestive Heart Failure: No COPD: Yes Cerebrovascular Accident: Yes Diabetes: No Diminished Hearing: No Endocrine: No Gastrointestinal Disorders: No GERD: No Glaucoma: No Genitourinary: Yes Headaches: Yes Hepatitis: No Hiatal Hernia: No Heparin Induced Thrombocytopen: No Hypertension: Yes Immune Disorder: No Implanted Vascular Access Dvce: Yes (3 cages in spine and 2 screws each in cervical spine, steel implant R foot) Kidney Stones: Yes (2000) Musculoskeletal: Yes Neurologic: No Psychiatric: No Reproductive: No Respiratory: Yes (COPD/O2 NEEDED) Immunizations Current: Yes Migraines: No Myocardial Infarction: No Radiation Therapy: No Renal Failure: No Seizures: No Sickle Cell Disease: No Sleep Apnea: Yes Thyroid Disease: No Ulcer: No Past Surgical History Abdominal Surgery: Yes AICD: No Appendectomy: Yes Arteriovenous Shunt: No Cardiac Surgery: No Cholecystectomy: No Ear Surgery: No Endocrine Surgery: No Eye Surgery: No Genitourinary Surgery: No Gynecologic Surgery: No Insulin Pump: No Joint Replacement: Yes (BILAT TOTAL KNEE) Neurologic Surgery: Yes (left SDH drained 12/2015) Oral Surgery: No Pacemaker: No Thoracic Surgery: No Tonsillectomy: Yes Other Surgery: Yes (craniatomy,appendectomy, CTS surgery, 19 sinus surgeries) Social History Alcohol Use: Yes (1 pint of vodka per week ) Tobacco Use: Yes (QUIT 1999, had smoked 46 years.) Substance Use: No Allergies-Medications (Allergen,Severity, Reaction): Coded Allergies: Aspirin (Verified Allergy, Severe, ANAPHYLACTIC SHOCK, 05/22/17) SHOCK Nonsteroidal Anti-Inflammatory Agts (Verified Allergy, Severe, ANAPHYLACTIC SHOCK, 05/22/17) SHOCK Lisinopril (Verified Allergy, Mild, 05/22/17) Reported Meds & Prescriptions Reported Meds & Active Scripts Active Ambien (Zolpidem Tartrate) 5 Mg Tab 5 Mg PO HS PRN 10 Days Reported Alendronate (Alendronate Sodium) 70 Mg Tab 70 Mg PO Q7D Spiriva Handihaler (Tiotropium Inh) 18 Mcg Cap 18 Mcg INH DAILY 1 capsule = 18 mcg Zantac (Ranitidine HCl) 150 Mg Tab 150 Mg PO BID Singulair (Montelukast Sodium) 10 Mg Tab 10 Mg PO HS Prednisone 5 Mg Tab 2.5 Mg PO DAILY Lovastatin 40 Mg Tab 40 Mg PO DAILY Calcium (Calcium Carbonate) 600 Mg Tab 1 Tab PO BID Alprazolam 1 Mg Tab 2 Mg PO BID PRN Albuterol Neb (Albuterol Sulfate) 2.5 Mg/3 Ml Neb 2.5 Mg NEB QID NEB Jessica Allergy (Fexofenadine HCl) 180 Mg Tab 180 Mg PO HS Amlodipine (Amlodipine Besylate) 5 Mg Tab 5 Mg PO DAILY Advair Diskus Inh (Fluticasone-Salmeterol Inh) 250-50 Mcg/Blist Aer 1 Puff INH BID Rinse mouth after use. Review of Systems General / Constitutional: No: Fever Eyes: No: Visual changes HENT: No: Headaches Cardiovascular: No: Chest Pain or Discomfort Respiratory: No: Shortness of Breath Gastrointestinal: No: Abdominal Pain Genitourinary: No: Dysuria Musculoskeletal: No: Pain Skin: Positive Other (sutures over face ), No Rash Neurologic: No: Weakness Psychiatric: No: Depression Endocrine: No: Polydipsia Hematologic/Lymphatic: No: Easy Bruising Physical Exam Narrative GENERAL: AAO x 3, no acute distress, Well-nourished, well-developed patient. SKIN: Warm and dry. No visible rashes or bruising. 8 sutures to forehead, 4 sutures to left eyebrow, 1 suture under left eye, and nasal bridge running interlocked HEAD: Normocephalic and atraumatic. EYES: No scleral icterus. No injection or drainage. ENT: No nasal drainage noted. Airway patent. NECK: Supple, trachea midline. No JVD. CARDIOVASCULAR: Regular rate and rhythm without murmurs, gallops, or rubs. RESPIRATORY: Breath sounds equal bilaterally. No accessory muscle use. No rhonchi or rales. GASTROINTESTINAL: visual inspection normal EXTREMITIES: No cyanosis or edema. BACK: No obvious deformity. NEURO: CN II-12 intact, PSYCH: AAO x 3, normal affect. Data Data Last Documented VS Vital Signs Date Time Temp Pulse Resp B/P Pulse Ox O2 Delivery O2 Flow Rate FiO2 05/22/17 11:01 98.2 82 14 163/91 97 MDM Medical Decision Making Medical Screen Exam Complete: Yes Emergency Medical Condition: Yes Medical Record Reviewed: Yes Differential Diagnosis sutures removal, wound dehiscence, less likely cellulitis Narrative Course 67-year-old male here for suture removal. There appears to be some slight wound dehiscence over the laceration on her for head with [address] There is also some slight dehiscence with the suture over the nasal bridge. I think this is related to overuse of neosporin with the intense moisture to the area. All sutures were removed and patient tolerated without incident. Steri-Strips were used to reinforce some of the slightly open areas. Dermabond was applied as well. I advised patient to keep area dry for the next several days. I advised him to not use Neosporin in excess as he was doing. Patient verbalized understanding of instructions, questions were answered, and thanked me for their care. I advised them if their condition worsens, please return to the nearest emergency room for further care. Procedures Procedure Narrative suture removal areas cleaned with alcohol 8 sutures removed to forehead 4 sutures removed over left eye brow running interlocked removed all areas cleaned and steri strip used over the forehead and nasal bridge for additional reinforcement. Diagnosis Primary Impression: Visit for suture removal Patient Instructions: General Instructions Additional Instructions: Keep area clean and dry. Watch for signs of infection: fever, redness, swelling, warmth, pus or drainage , red streaks around the cut, and increased pain from the area. As we discussed, keep the area clean and dry for the next several days. The steri strips will fall off by themselves. Follow up with your primary care doctor. Med/Other Pt SpecificInfo: No Change to Meds Disposition: 01 DISCHARGE HOME Condition: Stable Mangali,Codi PA May 22, 2017 11:14
== END 2017-05-22 11:59 | disposition home or self-care (01) ==
LOC: NEPD 10:59
DX: S01.81XD Laceration without foreign body of other part of head, subsequent encounter (principal); X58.XXXD Exposure to other specified factors, subsequent encounter; Z48.02 Encounter for removal of sutures
CPT/HCPCS: 99281; 99282

== ENCOUNTER 2017-06-24 01:40 | Emergency (ER) | payer MEDICARE ==
[~2017-06-24] VITALS: Ht 177.8 cm; Wt 105.0 kg
--- NOTE | 2017-06-24 01:56 | PD ---
HPI Chief Complaint: scalp laceration after fall Time Seen by Provider: 01:50 Travel History International Travel<30 days: No Contact w/Intl Traveler<30days: No Traveled to known affect area: No History of Present Illness HPI The patient is a 67-year-old male who was drinking vodka tonight and fell and hit his occipital area of the scalp. There apparently was no loss of consciousness. He states his last tetanus shot was within a year. He denies any neck pain. He denies any other injury. PFSH Past Medical History Arthritis: Yes Asthma: Yes Autoimmune Disease: No Blood Disorders: No Anxiety: Yes Depression: No Heart Rhythm Problems: No Cancer: Yes Cardiovascular Problems: Yes (edema) High Cholesterol: Yes Chemotherapy: No Chest Pain: No Congestive Heart Failure: No COPD: Yes Cerebrovascular Accident: Yes Diabetes: No Diminished Hearing: No Endocrine: No Gastrointestinal Disorders: No GERD: No Glaucoma: No Genitourinary: Yes Headaches: Yes Hepatitis: No Hiatal Hernia: No Heparin Induced Thrombocytopen: No Hypertension: Yes Immune Disorder: No Implanted Vascular Access Dvce: Yes (3 cages in spine and 2 screws each in cervical spine, steel implant R foot) Kidney Stones: Yes (2000) Musculoskeletal: Yes Neurologic: No Psychiatric: No Reproductive: No Respiratory: Yes (COPD/O2 NEEDED) Immunizations Current: Yes Migraines: No Myocardial Infarction: No Radiation Therapy: No Renal Failure: No Seizures: No Sickle Cell Disease: No Sleep Apnea: Yes Thyroid Disease: No Ulcer: No Past Surgical History Abdominal Surgery: Yes AICD: No Appendectomy: Yes Arteriovenous Shunt: No Cardiac Surgery: No Cholecystectomy: No Ear Surgery: No Endocrine Surgery: No Eye Surgery: No Genitourinary Surgery: No Gynecologic Surgery: No Insulin Pump: No Joint Replacement: Yes (BILAT TOTAL KNEE) Neurologic Surgery: Yes (left SDH drained 12/2015) Oral Surgery: No Pacemaker: No Thoracic Surgery: No Tonsillectomy: Yes Other Surgery: Yes (craniatomy,appendectomy, CTS surgery, 19 sinus surgeries) Social History Alcohol Use: Yes (1 pint of vodka per week ) Tobacco Use: Yes (QUIT 1999, had smoked 46 years.) Substance Use: No Allergies-Medications (Allergen,Severity, Reaction): Coded Allergies: aspirin (Verified Allergy, Severe, ANAPHYLACTIC SHOCK, 06/24/17) SHOCK diclofenac (Verified Allergy, Severe, ANAPHYLACTIC SHOCK, 06/24/17) SHOCK etodolac (Verified Allergy, Severe, ANAPHYLACTIC SHOCK, 06/24/17) SHOCK flurbiprofen (Verified Allergy, Severe, ANAPHYLACTIC SHOCK, 06/24/17) SHOCK ibuprofen (Verified Allergy, Severe, ANAPHYLACTIC SHOCK, 06/24/17) SHOCK indomethacin (Verified Allergy, Severe, ANAPHYLACTIC SHOCK, 06/24/17) SHOCK ketoprofen (Verified Allergy, Severe, ANAPHYLACTIC SHOCK, 06/24/17) SHOCK ketorolac (Verified Allergy, Severe, ANAPHYLACTIC SHOCK, 06/24/17) SHOCK naproxen (Verified Allergy, Severe, ANAPHYLACTIC SHOCK, 06/24/17) SHOCK oxaprozin (Verified Allergy, Severe, ANAPHYLACTIC SHOCK, 06/24/17) SHOCK lisinopril (Verified Allergy, Mild, 06/24/17) Reported Meds & Prescriptions Reported Meds & Active Scripts Active Ambien (Zolpidem Tartrate) 5 Mg Tab 5 Mg PO HS PRN 10 Days Reported Alendronate (Alendronate Sodium) 70 Mg Tab 70 Mg PO Q7D Spiriva Handihaler (Tiotropium Inh) 18 Mcg Cap 18 Mcg INH DAILY 1 capsule = 18 mcg Zantac (Ranitidine HCl) 150 Mg Tab 150 Mg PO BID Singulair (Montelukast Sodium) 10 Mg Tab 10 Mg PO HS Prednisone 5 Mg Tab 2.5 Mg PO DAILY Lovastatin 40 Mg Tab 40 Mg PO DAILY Calcium (Calcium Carbonate) 600 Mg Tab 1 Tab PO BID Alprazolam 1 Mg Tab 2 Mg PO BID PRN Albuterol Neb (Albuterol Sulfate) 2.5 Mg/3 Ml Neb 2.5 Mg NEB QID NEB Jessica Allergy (Fexofenadine HCl) 180 Mg Tab 180 Mg PO HS Amlodipine (Amlodipine Besylate) 5 Mg Tab 5 Mg PO DAILY Advair Diskus Inh (Fluticasone-Salmeterol Inh) 250-50 Mcg/Blist Aer 1 Puff INH BID Rinse mouth after use. Review of Systems Except as stated in HPI: all other systems reviewed are Neg Physical Exam Narrative GENERAL: The patient is alert, oriented 3 but does appear to be clinically intoxicated. He is cooperative. SKIN: Focused skin assessment warm/dry. There is a 2 cm scalp laceration in the right occipital area. There is no associated bony deformity. HEAD: Neither raccoon eyes nor cintron sign is present. Normocephalic. EYES: Pupils equal and round. No scleral icterus. No injection or drainage. ENT: No nasal bleeding or discharge. Mucous membranes pink and moist. NECK: Trachea midline. No JVD. CARDIOVASCULAR: Regular rate and rhythm. No murmur appreciated. RESPIRATORY: No accessory muscle use. Clear to auscultation. Breath sounds equal bilaterally. GASTROINTESTINAL: Abdomen soft, non-tender, nondistended. Hepatic and splenic margins not palpable. MUSCULOSKELETAL: No obvious deformities. No clubbing. No cyanosis. No edema. NEUROLOGICAL: Awake and alert. No obvious cranial nerve deficits. Motor grossly within normal limits. Normal speech. PSYCHIATRIC: Appropriate mood and affect; insight and judgment normal. Data Data Last Documented VS Vital Signs Date Time Temp Pulse Resp B/P (MAP) Pulse Ox O2 Delivery O2 Flow Rate FiO2 06/24/17 02:32 18 06/24/17 02:14 98.1 102 127/52 (77) 94 Orders Orders Complete Blood Count With Diff (06/24/17 01:50) Basic Metabolic Panel (Bmp) (06/24/17 01:50) Ct Brain W/O Iv Contrast(Rout) (06/24/17 01:50) Alcohol (Ethanol) (06/24/17 01:50) Labs Laboratory Tests Test 06/24/17 02:28 White Blood Count 5.2 TH/MM3 Red Blood Count 3.84 MIL/MM3 Hemoglobin 12.9 GM/DL Hematocrit 38.5 % Mean Corpuscular Volume 100.3 FL Mean Corpuscular Hemoglobin 33.6 PG Mean Corpuscular Hemoglobin Concent 33.5 % Red Cell Distribution Width 13.3 % Platelet Count 199 TH/MM3 Mean Platelet Volume 10.1 FL Neutrophils (%) (Auto) 58.5 % Lymphocytes (%) (Auto) 29.7 % Monocytes (%) (Auto) 6.2 % Eosinophils (%) (Auto) 3.9 % Basophils (%) (Auto) 1.7 % Neutrophils # (Auto) 3.1 TH/MM3 Lymphocytes # (Auto) 1.5 TH/MM3 Monocytes # (Auto) 0.3 TH/MM3 Eosinophils # (Auto) 0.2 TH/MM3 Basophils # (Auto) 0.1 TH/MM3 CBC Comment DIFF FINAL Differential Comment Blood Urea Nitrogen 15 MG/DL Creatinine 1.20 MG/DL Random Glucose 114 MG/DL Calcium Level 8.4 MG/DL Sodium Level 140 MEQ/L Potassium Level 3.8 MEQ/L Chloride Level 105 MEQ/L Carbon Dioxide Level 23.5 MEQ/L Anion Gap 12 MEQ/L Estimat Glomerular Filtration Rate 60 ML/MIN Ethyl Alcohol Level 186 MG/DL MDM Medical Decision Making Medical Screen Exam Complete: Yes Emergency Medical Condition: Yes Medical Record Reviewed: Yes Interpretation(s) The CT brain shows postoperative changes of left craniotomy but no acute intracranial abnormalities. Also noted is sinus disease with pain and sinus opacification and the right parietal scalp laceration. The alcohol level is 186. The CBC shows a hemoglobin of 12.9 and hematocrit of 38.5 but is otherwise unremarkable. The basic metabolic profile shows a GFR of 60, calcium of 8.4 but is otherwise unremarkable. Differential Diagnosis Scalp laceration, skull fracture, intracranial bleed, alcohol intoxication Narrative Course The patient has a scalp laceration and alcohol intoxication. It is now 0330 and the patient can walk normally and can go home and Safely. He is told to discontinue or cut back on his alcohol because this probably led to his fall tonight. He is to return and 12 days for staple removal. He is to keep the wound clean and dry and return immediately if he has any problems. Diagnosis Primary Impression: Scalp laceration Additional Impression: Alcohol intoxication Additional Instructions: The CT scan did not show any brain damage. We want you to return in 12 days for staple removal. If you have any problems, return immediately. You need to discontinue or cut back on alcohol, this is likely what led to this fall tonight. Disposition: 01 DISCHARGE HOME Condition: Stable Carmelo Esparza MD Jun 24, 2017 01:55
[2017-06-24 02:14] VITALS: BP 127/52; PULSE 102; RESP 18; TEMP 98.1; O2SAT 94
--- NOTE | 2017-06-24 02:33 | RADRPT ---
EXAM DATE/TIME: 06/24/2017 02:12 [facility] COMPARISON: CT BRAIN W/O CONTRAST, May 13, 2017, 21:24. INDICATIONS : Trauma, fall. RADIATION DOSE: 65.05 CTDIvol (mGy) MEDICAL HISTORY : Prior brain hemorrhage. SURGICAL HISTORY : Craniotomy. ENCOUNTER: Initial ACUITY: 1 day PAIN SCALE: 8/10 LOCATION: cranial TECHNIQUE: Multiple contiguous axial images were obtained of the head. Using automated exposure control and adj ustment of the mA and/or kV according to patient size, radiation dose was kept as low as reasonably a chievable to obtain optimal diagnostic quality images. DICOM format image data is available electro nically for review and comparison. FINDINGS: Again seen are postoperative changes of left craniotomy. No acute intracranial mass, hemorrhage or sh ift. No hydrocephalus. There is chronic pansinus disease with previous sinus surgery and nasal polypo sis. Findings are similar to May. CONCLUSION: 1. No acute intracranial abnormalities. Stable postop changes on the left and extensive chronic sinus disease with pansinus opacification. 2. Right parietal scalp laceration. Cyrus Oseguera MD on June 24, 2017 at 2:29 Board Certified Radiologist. This report was verified electronically.
[2017-06-24 03:01] LABS: AUTOMATED NEUTROPHIL # 3.1 TH/MM3 (1.8-7.7); BASOPHIL # 0.1 TH/MM3 (0-0.2); BASOPHIL % 1.7 % (0.0-2.0); EOSINOPHIL # 0.2 TH/MM3 (0-0.4); EOSINOPHIL % 3.9 % (0.0-4.0); HEMATOCRIT 38.5 % (39.0-51.0); HEMO FLAGS DIFF FINAL; LYMPH % 29.7 % (9.0-44.0); LYMPHOCYTE # 1.5 TH/MM3 (1.0-4.8); MEAN CELL VOLUME 100.3 FL (80.0-100.0); MEAN CORPUSCULAR HEMOGLOBIN 33.6 PG (27.0-34.0); MEAN CORPUSCULAR HGB CONC 33.5 % (32.0-36.0); MONO % 6.2 % (0.0-8.0); NEUT % 58.5 % (16.0-70.0); PLATELET COUNT 199 TH/MM3 (150-450); RED BLOOD COUNT 3.84 MIL/MM3 (4.50-5.90); RED CELL DISTRIBUTION WIDTH 13.3 % (11.6-17.2); WHITE BLOOD COUNT 5.2 TH/MM3 (4.0-11.0)
[2017-06-24 03:06] LABS: POTASSIUM 3.8 MEQ/L (3.5-5.1)
[2017-06-24 03:10] LABS: BICARBONATE 23.5 MEQ/L (21.0-32.0)
[2017-06-24 03:33] VITALS: BP 125/84
[2017-06-24] MEDS ORDERED: TRAM50TA PO (03:44)
== END 2017-06-24 03:52 | disposition home or self-care (01) ==
LOC: PHED 01:40
DX: S01.01XA Laceration without foreign body of scalp, initial encounter (principal); F10.129 Alcohol abuse with intoxication, unspecified; W19.XXXA Unspecified fall, initial encounter; I10 Essential (primary) hypertension; J44.9 Chronic obstructive pulmonary disease, unspecified; Z86.73 Personal history of transient ischemic attack (TIA), and cerebral infarction without residual deficits; J45.909 Unspecified asthma, uncomplicated; E78.00 Pure hypercholesterolemia, unspecified; Z87.891 Personal history of nicotine dependence; M19.90 Unspecified osteoarthritis, unspecified site; Y90.6 Blood alcohol level of 120-199 mg/100 ml
CPT/HCPCS: 12001; 70450; 80048; 80307; 85025

== ENCOUNTER 2017-09-22 23:44 | Emergency (ER) | payer MEDICARE ==
[~2017-09-22] VITALS: Ht 177.8 cm; Wt 104.5 kg
[~2017-09-22 23:44] MED LIST changes: -ALBU0.08 NEB; -ALEN1TAB48 PO; -CALC600T25 PO; +CHOL4POW3 PO; +GABA300C5 PO; +HYDR2TAB PO; +MULTTAB67 PO; +POTA10CA PO; +PRED2.5T PO; -PRED5TAB PO; +SERT-132 PO; +VENTAER INH; +VITATAB11
[2017-09-22 23:53] VITALS: BP 136/91; PULSE 104; RESP 20; TEMP 97.9; O2SAT 94
--- NOTE | 2017-09-23 00:27 | PD ---
HPI Chief Complaint: Musculoskeletal Complaint Time Seen by Provider: 00:19 Travel History International Travel<30 days: No Contact w/Intl Traveler<30days: No Traveled to known affect area: No History of Present Illness HPI The patient is a 67-year-old male, frequent visitor to this emergency department -often for alcohol intoxication, who was drinking vodka heavily today. He had problems getting off the floor and the [place] police came and [place] acted him. He did not want to come the hospital but [facility] took him here anyway. Now that he is here at the hospital he wants to leave and signed out AMA. He does not want any IV, blood draw. The patient has a history of chronic back pain. He denies any bladder or bowel dysfunction. PFSH Past Medical History Arthritis: Yes Asthma: Yes Autoimmune Disease: No Blood Disorders: No Anxiety: Yes Depression: No Heart Rhythm Problems: No Cancer: Yes Cardiovascular Problems: Yes (edema) High Cholesterol: Yes Chemotherapy: No Chest Pain: No Congestive Heart Failure: No COPD: Yes Cerebrovascular Accident: Yes Diabetes: No Diminished Hearing: No Endocrine: No Gastrointestinal Disorders: No GERD: No Glaucoma: No Genitourinary: Yes Headaches: Yes Hepatitis: No Hiatal Hernia: No Heparin Induced Thrombocytopen: No Hypertension: Yes Immune Disorder: No Implanted Vascular Access Dvce: Yes (3 cages in spine and 2 screws each in cervical spine, steel implant R foot) Kidney Stones: Yes (2000) Musculoskeletal: Yes Neurologic: No Psychiatric: No Reproductive: No Respiratory: Yes (COPD/O2 NEEDED) Immunizations Current: Yes Migraines: No Myocardial Infarction: No Radiation Therapy: No Renal Failure: No Seizures: No Sickle Cell Disease: No Sleep Apnea: Yes Thyroid Disease: No Ulcer: No Past Surgical History Abdominal Surgery: Yes AICD: No Appendectomy: Yes Arteriovenous Shunt: No Cardiac Surgery: No Cholecystectomy: No Ear Surgery: No Endocrine Surgery: No Eye Surgery: No Genitourinary Surgery: No Gynecologic Surgery: No Insulin Pump: No Joint Replacement: Yes (BILAT TOTAL KNEE) Neurologic Surgery: Yes (left SDH drained 12/2015) Oral Surgery: No Pacemaker: No Thoracic Surgery: No Tonsillectomy: Yes Other Surgery: Yes (craniatomy,appendectomy, CTS surgery, 19 sinus surgeries) Social History Alcohol Use: Yes (1 pint of vodka per day ) Tobacco Use: No (QUIT 1999, had smoked 46 years.) Substance Use: No Allergies-Medications (Allergen,Severity, Reaction): Coded Allergies: aspirin (Verified Allergy, Severe, ANAPHYLACTIC SHOCK, 09/23/17) SHOCK diclofenac (Verified Allergy, Severe, ANAPHYLACTIC SHOCK, 09/23/17) SHOCK etodolac (Verified Allergy, Severe, ANAPHYLACTIC SHOCK, 09/23/17) SHOCK flurbiprofen (Verified Allergy, Severe, ANAPHYLACTIC SHOCK, 09/23/17) SHOCK ibuprofen (Verified Allergy, Severe, ANAPHYLACTIC SHOCK, 09/23/17) SHOCK indomethacin (Verified Allergy, Severe, ANAPHYLACTIC SHOCK, 09/23/17) SHOCK ketoprofen (Verified Allergy, Severe, ANAPHYLACTIC SHOCK, 09/23/17) SHOCK ketorolac (Verified Allergy, Severe, ANAPHYLACTIC SHOCK, 09/23/17) SHOCK naproxen (Verified Allergy, Severe, ANAPHYLACTIC SHOCK, 09/23/17) SHOCK oxaprozin (Verified Allergy, Severe, ANAPHYLACTIC SHOCK, 09/23/17) SHOCK lisinopril (Verified Allergy, Mild, 09/23/17) Reported Meds & Prescriptions Reported Meds & Active Scripts Active Gabapentin 300 Mg Cap 300 Mg PO TID Hydromorphone (Hydromorphone HCl) 2 Mg Tab 2 Mg PO Q8H PRN As needed for severe breakthrough pain Ambien (Zolpidem Tartrate) 5 Mg Tab 5 Mg PO HS PRN 10 Days Reported Vitamin B Complex (B-Complex Vitamins) 1 Tab Ventolin Hfa 18 GM Inh (Albuterol Sulfate) 90 Mcg/Act Aer 2 Puff INH Q6H PRN Sertraline (Sertraline HCl) 50 Mg Tab 50 Mg PO DAILY Prednisone 2.5 Mg Tab 2.5 Mg PO BID Potassium Chloride ER (Potassium Chloride) 10 Meq Cap 10 Meq PO BID Multiple Vitamin 1 Tab 1 Tab PO DAILY Cholestyramine 4 Gm/Dose Powd 4 Gm PO BID 1 level scoopful of powder contains 4 grams of cholestyramine. Spiriva Handihaler (Tiotropium Inh) 18 Mcg Cap 18 Mcg INH DAILY 1 capsule = 18 mcg Zantac (Ranitidine HCl) 150 Mg Tab 150 Mg PO BID Singulair (Montelukast Sodium) 10 Mg Tab 10 Mg PO HS Lovastatin 40 Mg Tab 40 Mg PO DAILY Alprazolam 1 Mg Tab 2 Mg PO BID PRN Jessica Allergy (Fexofenadine HCl) 180 Mg Tab 180 Mg PO HS Amlodipine (Amlodipine Besylate) 5 Mg Tab 5 Mg PO DAILY Advair Diskus Inh (Fluticasone-Salmeterol Inh) 250-50 Mcg/Blist Aer 1 Puff INH BID Rinse mouth after use. Review of Systems ROS Limitations: Intoxication Except as stated in HPI: all other systems reviewed are Neg Physical Exam Exam Limitations: Intoxication Narrative GENERAL: Well-nourished, obese and intoxicated appearing patient and moderate apparent distress with his back pain. He is able to ambulate slowly on his feet. His vital signs show pulse of 104, blood pressure 136/91 and oximetry 94% . SKIN: Focused skin assessment warm/dry. HEAD: Normocephalic. EYES: No scleral icterus. No injection or drainage. NECK: Supple, trachea midline. No JVD or lymphadenopathy. CARDIOVASCULAR: Regular rate and rhythm without murmurs, gallops, or rubs. RESPIRATORY: Breath sounds equal bilaterally. No accessory muscle use. GASTROINTESTINAL: Abdomen soft, non-tender, nondistended. MUSCULOSKELETAL: No cyanosis, or edema. There is diffuse tenderness on the musculature over the low back. Straight leg raising is normal, deep tendon reflexes are 0+1 bilaterally both patella and Achilles. BACK: Nontender without obvious deformity. No CVA tenderness. Data Data Last Documented VS Vital Signs Date Time Temp Pulse Resp B/P (MAP) Pulse Ox O2 Delivery O2 Flow Rate FiO2 09/23/17 00:00 20 09/22/17 23:53 97.9 104 136/91 (106) 94 MDM Medical Decision Making Medical Screen Exam Complete: Yes Emergency Medical Condition: Yes Medical Record Reviewed: Yes Differential Diagnosis Alcohol intoxication, chronic low back pain, uncooperative patient Narrative Course The patient does not want to be seen here, he does not want a blood drawn he does not want to be treated other than getting pain medications. He does appear intoxicated and narcotic pain medications are risky in this patient. He can ambulate on his feet although slowly. He says he wants to leave and he is been consistent with this. He is walking out to get a cab and signing out AGAINST MEDICAL ADVICE. He has never wanted to come here in the first place. Diagnosis Primary Impression: Alcohol intoxication Additional Impression: Exacerbation of chronic back pain Additional Instructions: Discontinue alcohol, use [facility] to get off of alcohol. Med/Other Pt SpecificInfo: No Change to Meds Disposition: 07 AGAINST MEDICAL ADVICE Condition: Carmelo Sanchez MD Sep 23, 2017 00:27
[2017-10-04] MEDS ORDERED: GABA300C5 PO (16:57)
[2017-10-04] MEDS ORDERED: HYDR2TAB PO (16:57)
== END 2017-09-23 00:30 | disposition left against medical advice (07) ==
LOC: PHED 23:44
DX: F10.129 Alcohol abuse with intoxication, unspecified (principal); M54.9 Dorsalgia, unspecified; J44.9 Chronic obstructive pulmonary disease, unspecified; I10 Essential (primary) hypertension; E78.00 Pure hypercholesterolemia, unspecified; Z88.6 Allergy status to analgesic agent; Z79.899 Other long term (current) drug therapy
CPT/HCPCS: 99281

== ENCOUNTER 2017-11-15 06:12 | Observation (INO) | payer MEDICARE ==
[~2017-11-15] VITALS: Ht 177.8 cm; Wt 106.3 kg
[~2017-11-15 06:12] MED LIST changes: +OXYGENDME NAS.CANULA; -VITATAB11; +VITATAB11 PO
[2017-11-15] MEDS ORDERED: SODIUM CHLORID 0.9% 500 ML IV PRN (07:45)
[2017-11-15] MEDS ORDERED: CHLORHEXIDINE GLUCONATE 2 % 1 PACK (2 CLOTHS) TOPICAL PRN (07:45)
[2017-11-15] MEDS ORDERED: LACTATED RINGER'S 1000 ML IV PRN (07:45)
[2017-11-15] MEDS ORDERED: ceFAZolin 1,000 MG/NS 100 ML IV SCH ×2 (07:45)
[2017-11-15] MEDS ORDERED: POVIDONE IODINE 5% (ANTISEPSIS KIT) 4 APPLICATIONS EACH NARE PRN (07:45)
[2017-11-15] MEDS ORDERED: METOPROLOL TARTRATE 25 MG TAB PO PRN (07:45)
[2017-11-15] MEDS ORDERED: KETAMINE HCL 500 MG/5 ML VIAL ONE (07:50)
[2017-11-15] MEDS ORDERED: PROPOFOL 500 MG/50 ML INJ 0 ML ONE (07:51)
[2017-11-15] MEDS ORDERED: THROMBIN (TOPICAL) 5,000 UNIT VIAL ONE (07:55)
[2017-11-15] MEDS ORDERED: ceFAZolin 2 GM PREMIX 0 ML ONE (07:55)
[2017-11-15] MEDS ORDERED: GELFOAM SIZE 100 ONE (07:55)
[2017-11-15] MEDS ORDERED: GENTAMICIN SULFATE 80 MG/2 ML VIAL ONE (07:55)
[2017-11-15] MEDS ORDERED: BUPIVACAINE LIPOSOME PF 1.3% 20 ML VIAL ONE (08:01)
[2017-11-15] MEDS ORDERED: BUPIVACAINE HCL PF 0.25% 30 ML VIAL ONE (08:02)
[2017-11-15] MEDS: LACTATED RINGER'S 1000 ML INJ 1,000 ML IV SCH (08:35)
[2017-11-15] MEDS ORDERED: NALOXONE HCL 0.4 MG/ML AMP IV PUSH PRN ×2 (08:45)
[2017-11-15] MEDS ORDERED: METHOCARBAMOL 500 MG TAB PO PRN (08:45)
[2017-11-15] MEDS ORDERED: diphenhydrAMINE HCL 25 MG CAP PO PRN (08:45)
[2017-11-15] MEDS ORDERED: LORATADINE 10 MG TAB PO SCH (09:00)
[2017-11-15 09:22] LABS: AUTOMATED NEUTROPHIL # 5.6 TH/MM3 (1.8-7.7); BASOPHIL # 0.1 TH/MM3 (0-0.2); BASOPHIL % 0.7 % (0.0-2.0); EOSINOPHIL # 0.2 TH/MM3 (0-0.4); EOSINOPHIL % 2.1 % (0.0-4.0); HEMATOCRIT 39.4 % (39.0-51.0); HEMOGLOBIN 13.6 GM/DL (13.0-17.0); LYMPH % 15.8 % (9.0-44.0); LYMPHOCYTE # 1.2 TH/MM3 (1.0-4.8); MEAN CELL VOLUME 98.2 FL (80.0-100.0); MEAN CORPUSCULAR HEMOGLOBIN 33.9 PG (27.0-34.0); MEAN CORPUSCULAR HGB CONC 34.5 % (32.0-36.0); MONO % 10.6 % (0.0-8.0); MONOCYTE # 0.8 TH/MM3 (0-0.9); NEUT % 70.8 % (16.0-70.0); PLATELET COUNT 199 TH/MM3 (150-450); RED BLOOD COUNT 4.01 MIL/MM3 (4.50-5.90); RED CELL DISTRIBUTION WIDTH 16.1 % (11.6-17.2); WHITE BLOOD COUNT 7.9 TH/MM3 (4.0-11.0)
--- NOTE | 2017-11-15 09:35 | HHI.HP ---
HPI Service Neurosurgery Primary Care Physician Carlos Alberto Nelson MD History of Present Illness 67-year-old male with history of chronic progressive severe low back pain. He states that the back pain started approximately 2 months ago, becoming of constant moderate severity approximately 6 months ago. He was seen for initial neurosurgery office evaluation on 09/07/17. He states that in the past week his pain has become extremely severe. His states that the patient has not been able to get out of bed for the past week, having difficulty even ambulating to the bathroom. He was given MS Contin recently for pain control, pending surgery which was tentatively scheduled for 11/15/2017. This apparently caused some itching and he has been using a back supervisor network control operators to scratch his back and has developed some abrasions and pustules over the past week. His skin is now so tender that he cannot lay on his back or touch his skin. He does not have any fevers or chills. The pain continues to be primarily in the central to right lower lumbar region radiating across the right posterior iliac crest. He denies any pain weakness or numbness in the lower extremities or problems with bowel or bladder dysfunction. He came to the hospital today tentatively for surgery, which has been canceled due exam findings consistent with cellulitis as well as concern for deeper infection including possible discitis given the severity of his pain in the past week. The patient does have a history of significant alcohol abuse, drinking a pint of vodka daily. He has had multiple emergency room visits due to alcohol intoxication and has a history of recent multiple falls. His last visit to the emergency room was 09/22/17. Other medical problems include history of COPD, asthma, AAA, anxiety disorder, Review of Systems Constitutional: COMPLAINS OF: Weight gain, DENIES: Fever, Chills, Night Sweats Eyes: DENIES: Blurred vision, Diplopia Ears, nose, mouth, throat: DENIES: Hearing loss, Vertigo, Throat pain Respiratory: COMPLAINS OF: Cough, Shortness of breath Cardiovascular: DENIES: Chest pain, Palpitations Gastrointestinal: DENIES: Abdominal pain, Diarrhea, Nausea Genitourinary: DENIES: Urinary incontinence Musculoskeletal: COMPLAINS OF: Joint pain, Muscle aches, Back pain Hematologic/lymphatic: DENIES: Bruising Neurologic: COMPLAINS OF: Abnormal gait, Headache, Poor Balance Psychiatric: COMPLAINS OF: Anxiety Past Family Social History Allergies: Coded Allergies: aspirin (Verified Allergy, Severe, ANAPHYLACTIC SHOCK, 11/12/17) SHOCK diclofenac (Verified Allergy, Severe, ANAPHYLACTIC SHOCK, 11/12/17) SHOCK etodolac (Verified Allergy, Severe, ANAPHYLACTIC SHOCK, 11/12/17) SHOCK flurbiprofen (Verified Allergy, Severe, ANAPHYLACTIC SHOCK, 11/12/17) SHOCK ibuprofen (Verified Allergy, Severe, ANAPHYLACTIC SHOCK, 11/12/17) SHOCK indomethacin (Verified Allergy, Severe, ANAPHYLACTIC SHOCK, 11/12/17) SHOCK ketoprofen (Verified Allergy, Severe, ANAPHYLACTIC SHOCK, 11/12/17) SHOCK ketorolac (Verified Allergy, Severe, ANAPHYLACTIC SHOCK, 11/12/17) SHOCK naproxen (Verified Allergy, Severe, ANAPHYLACTIC SHOCK, 11/12/17) SHOCK oxaprozin (Verified Allergy, Severe, ANAPHYLACTIC SHOCK, 11/12/17) SHOCK lisinopril (Verified Allergy, Mild, 11/12/17) Past Medical History Asthma COPD Hyperlipidemia Hypertension Anxiety disorder Arthritis Chronic low back pain BPH Chronic alcohol abuse History of AAA Past Surgical History Left craniotomy subdural hematoma December 2015 Cervical spine surgery Multiple orthopedic surgeries including left knee arthroplasty, left wrist surgery Appendectomy Reported Medications Reported Meds & Active Scripts Active Gabapentin 300 Mg Cap 300 Mg PO TID Hydromorphone (Hydromorphone HCl) 2 Mg Tab 2 Mg PO Q8H PRN As needed for severe breakthrough pain Ambien (Zolpidem Tartrate) 5 Mg Tab 5 Mg PO HS PRN 10 Days Reported Oxygen (O2) Device Liter SRINATH.CANULA PRN PRN Oxygen Concentrator Portable Gaseous 2 L/min via Nasal Canula Continuous For 99 months Vitamin B Complex (B-Complex Vitamins) 1 Tab 1 Tab PO DAILY Ventolin Hfa 18 GM Inh (Albuterol Sulfate) 90 Mcg/Act Aer 2 Puff INH Q6H PRN Sertraline (Sertraline HCl) 50 Mg Tab 50 Mg PO DAILY Prednisone 2.5 Mg Tab 2.5 Mg PO BID Potassium Chloride ER (Potassium Chloride) 10 Meq Cap 10 Meq PO BID Multiple Vitamin 1 Tab 1 Tab PO DAILY Cholestyramine 4 Gm/Dose Powd 4 Gm PO BID 1 level scoopful of powder contains 4 grams of cholestyramine. Spiriva Handihaler (Tiotropium Inh) 18 Mcg Cap 18 Mcg INH DAILY 1 capsule = 18 mcg Zantac (Ranitidine HCl) 150 Mg Tab 150 Mg PO BID Singulair (Montelukast Sodium) 10 Mg Tab 10 Mg PO HS Lovastatin 40 Mg Tab 40 Mg PO DAILY Alprazolam 1 Mg Tab 2 Mg PO BID PRN Jessica Allergy (Fexofenadine HCl) 180 Mg Tab 180 Mg PO WEEKLY Amlodipine (Amlodipine Besylate) 5 Mg Tab 5 Mg PO DAILY Advair Diskus Inh (Fluticasone-Salmeterol Inh) 250-50 Mcg/Blist Aer 1 Puff INH BID Rinse mouth after use. Family History He is adopted Social History Drinks a pint of vodka daily. Smoke cigarettes Lives with his Physical Exam Vital Signs Vital Signs Date Time Temp Pulse Resp B/P (MAP) Pulse Ox O2 Delivery O2 Flow Rate FiO2 11/15/17 07:43 98.9 98 18 108/82 (91) 96 Physical Exam Gen.: Obese gentleman, anxious and somewhat agitated Respirations: Regular, decreased at the bases. No rhonchi. Cardiac: Regular without murmur. No carotid bruit Abdomen: Protuberant, soft, nontender, positive bowel sounds Skin: Multiple abrasions and scattered maculopapular rash with moderate erythema , some apparent edema and cellulitis with significant tenderness to palpation over the lower greater than upper lumbar region extending along the right and left lateral flank. Extremities: Moderate distal lower extremity edema and erythema without definite cyanosis. Posterior tibial pulses are nonpalpable. Musculoskeletal: Moderate arthritic changes in the hands. Mild tenderness over the right and left lateral hip with some discomfort in the hip with range of motion on each side. No significant discomfort in the knees with range of motion Neurologic: Awake and alert Somewhat agitated, very anxious, complaining of severe low back pain Speech is clear Appears to have somewhat limited judgment and insight Recent and remote memory are intact Answers questions appropriately and follows simple commands well Extraocular movements intact Sensation is intact throughout the upper and lower extremities History of his normal range of flexion and extension groups throughout the upper and lower extremities although some difficulty with right lower extremity proximal motor testing due to complaint of severe low back pain with movement. No ankle clonus Plantar responses are flexor Absent Champ's response bilateral Laboratory Laboratory Tests Test 11/15/17 08:35 White Blood Count 7.9 TH/MM3 Red Blood Count 4.01 MIL/MM3 Hemoglobin 13.6 GM/DL Hematocrit 39.4 % Mean Corpuscular Volume 98.2 FL Mean Corpuscular Hemoglobin 33.9 PG Mean Corpuscular Hemoglobin Concent 34.5 % Red Cell Distribution Width 16.1 % Platelet Count 199 TH/MM3 Mean Platelet Volume 11.0 FL Neutrophils (%) (Auto) 70.8 % Lymphocytes (%) (Auto) 15.8 % Monocytes (%) (Auto) 10.6 % Eosinophils (%) (Auto) 2.1 % Basophils (%) (Auto) 0.7 % Neutrophils # (Auto) 5.6 TH/MM3 Lymphocytes # (Auto) 1.2 TH/MM3 Monocytes # (Auto) 0.8 TH/MM3 Eosinophils # (Auto) 0.2 TH/MM3 Basophils # (Auto) 0.1 TH/MM3 CBC Comment DIFF FINAL Differential Comment Caprini VTE Risk Assessment Caprini VTE Risk Assessment: Mod/High Risk (score >= 2) Caprini Risk Assessment Model Point Value = 1 Point Value = 2 Point Value = 3 Point Value = 5 Age 41-60 Minor surgery BMI > 25 kg/m2 Swollen legs Varicose veins or History of unexplained or recurrent spontaneous Oral contraceptives or hormone replacement Sepsis (< 1 month) Serious lung disease, including pneumonia (< 1 month) Abnormal pulmonary function Acute myocardial infarction Congestive heart failure (< 1 month) History of inflammatory bowel disease Medical patient at bed rest Age 61-74 Arthroscopic surgery Major open surgery (> 45 min) Laparoscopic surgery (> 45 min) Malignancy Confined to bed (> 72 hours) Immobilizing plaster cast Central venous access Age >= 75 History of VTE Family history of VTE Factor V Leiden Prothrombin [id number] Lupus anticoagulant Anticardiolipin antibodies Elevated serum homocysteine Heparin-induced thrombocytopenia Other congenital or acquired thrombophilia Stroke (< 1 month) Elective arthroplasty Hip, pelvis, or leg fracture Acute spinal cord injury (< 1 month) Prophylaxis Regimen Total Risk Factor Score Risk Level Prophylaxis Regimen 0-1 Low Early ambulation 2 Moderate Order ONE of the following: *Sequential Compression Device (SCD) *Heparin 5000 units SQ BID 3-4 Higher Order ONE of the following medications: *Heparin 5000 units SQ TID *Enoxaparin/Lovenox 40 mg SQ daily (WT < 150 kg, CrCl > 30 mL/min) *Enoxaparin/Lovenox 30 mg SQ daily (WT < 150 kg, CrCl > 10-29 mL/min) *Enoxaparin/Lovenox 30 mg SQ BID (WT < 150 kg, CrCl > 30 mL/min) AND/OR *Sequential Compression Device (SCD) 5 or more Highest Order ONE of the following medications: *Heparin 5000 units SQ TID (Preferred with Epidurals) *Enoxaparin/Lovenox 40 mg SQ daily (WT < 150 kg, CrCl > 30 mL/min) *Enoxaparin/Lovenox 30 mg SQ daily (WT < 150 kg, CrCl > 10-29 mL/min) *Enoxaparin/Lovenox 30 mg SQ BID (WT < 150 kg, CrCl > 30 mL/min) AND *Sequential Compression Device (SCD) Assessment and Plan Assessment and Plan Impression: 1. Lumbar spondylosis and degenerative disc disease with grade 1 L4 5 anterior listhesis, probable pars defect. 2. Severe progressive intractable low back pain. Probable component of lumbar radiculopathy. Pain much more severe in the past week, preventing ambulation. Assessed for possible soft tissue infection, discitis. 3. Lumbar cellulitis 4. Chronic alcohol abuse 5. COPD, asthma 6. Hypertension 7. Hyperlipidemia 8. History of AAA 9. Anxiety disorder Plan: Findings were discussed with the patient and his in the operating holding area. Due to findings suggestive of lumbar cellulitis as well as his severe increased low back pain over the past week concerning for deeper wound infection or discitis, it is elected to cancel his surgery at this point and admit him for further evaluation including MRI with and without contrast of the lumbar spine, CT scan lumbar spine to more fully evaluate for possible pars defect preoperatively. BOOKKEEPING MACHINE MECHANIC ordered for additional pain control. Narcotic use will be closely monitored particularly in view of his history of chronic alcohol abuse. Physical therapy LSO brace AAA will be reevaluated on MRI/CT lumbar spine Continue respiratory treatments as needed for asthma DVT prophylaxis Benadryl for skin itching. We will hold morphine 2 to possible urticaria secondary to medication We will ask medicine to see to assist with medical issues including pulmonary disease, anxiety disorder, hypertension, chronic alcohol abuse with significant potential for alcohol withdrawal. Symptomatic treatment for skin itching and observation of the skin changes in the lumbar spine for signs of progressive cellulitis. Jayme Eller MD Nov 15, 2017 09:35
[2017-11-15 09:45] LABS: ALKALINE PHOSPHATASE 111 U/L (45-117); ALT (GPT) 47 U/L (12-78); TOTAL BILIRUBIN ADULT 0.6 MG/DL (0.2-1.0)
[2017-11-15] MEDS ORDERED: ALBUTEROL SULFATE 90 MCG/ACT HFA 8 GM INHALER INH PRN (09:45)
[2017-11-15] MEDS ORDERED: ALPRAZolam 1 MG TAB PO PRN (09:45)
[2017-11-15] MEDS: 1/2 NS + KCL 20 MEQ INJ 1,000 ML IV SCH (09:45)
[2017-11-15] MEDS ORDERED: ZOLPIDEM TARTRATE 5 MG TAB PO PRN (09:45)
[2017-11-15 09:48] LABS: ALBUMIN 3.2 GM/DL (3.4-5.0); AST (GOT) 80 U/L (15-37); BICARBONATE 28.4 MEQ/L (21.0-32.0); BLOOD UREA NITROGEN 18 MG/DL (7-18); CALCIUM 9.3 MG/DL (8.5-10.1); CHLORIDE 100 MEQ/L (98-107); CREATININE 1.15 MG/DL (0.60-1.30); GLOMERULAR FILTRATION RATE 63 ML/MIN (>89); GLUCOSE,RANDOM 90 MG/DL (74-106); SODIUM (NA) 137 MEQ/L (136-145)
[2017-11-15] MEDS: HYDROmorphone HCL PCA 6 MG/30 ML IV SCH (10:19)
[2017-11-15] MEDS ORDERED: LORazepam 1 MG TAB PO PRN (11:00)
[2017-11-15] MEDS ORDERED: LORazepam 2 MG TAB PO PRN (11:00)
[2017-11-15] MEDS ORDERED: FLUMAZENIL 0.5 MG/5 ML VIAL IV PUSH PRN (11:00)
[2017-11-15] MEDS ORDERED: ONDANSETRON HCL 4 MG/2 ML VIAL IV PUSH PRN (11:00)
[2017-11-15] MEDS ORDERED: HALOPERIDOL LACTATE 5 MG/ML AMP IM PRN (11:00)
[2017-11-15] MEDS ORDERED: LORazepam 2 MG/ML VIAL IV PUSH PRN ×4 (11:00)
[2017-11-15] MEDS ORDERED: chlordiazePOXIDE 25 MG CAP PO PRN (11:00)
--- NOTE | 2017-11-15 11:14 | PD.CONS ---
HPI Service [facility] [place] [facility] Consult Requested By Dr. Jayme Eller, Neurosurgery Primary Care Physician Carlos Alberto Nelson MD Diagnoses: History of Present Illness Patient is a 67-year-old male with history of hypertension, AAA, COPD, osteoarthritis, previous hospitalization for subdural hematoma and craniotomy, and recurrent hospitalizations and ER visits for alcoholism. Patient is being seen by neurosurgery, Dr. Jayme Eller, for suspected suspected discitis. Patient has developed exacerbation of his low back pain. It has been severe over the last week limiting his ability to ambulate. Patient recently prescribed MS Contin for pain control. Patient developed itching and utilized a back med spa manager. Patient has developed some abrasions and pustules on his back over the last week in the skin over his back has become tender causing him to be unable to lie on his back or touches skin. Patient denies fevers or chills. There is no loss of bowel or bladder control. Patient had come to the hospital today for surgery with Dr. Eller. Medical consultation is now requested to assist with possible discitis, possible cellulitis, and patient's chronic medical problems Patient does have a history of significant alcohol use, drinking a pint of vodka daily. Patient has had multiple hospitalizations and ER visits related to alcohol intoxication. Patient has had a number of recent falls. Patient's last visit to the ER was 09/22/17 Review of Systems Constitutional: DENIES: Diaphoretic episodes, Fatigue, Fever, Weight gain, Weight loss, Chills, Dizziness, Change in appetite, Night Sweats Endocrine: DENIES: Heat/cold intolerance, Polydipsia, Polyuria, Polyphagia Eyes: DENIES: Blurred vision, Diplopia, Eye inflammation, Eye pain, Vision loss , Photosensitivity, Double Vision Ears, nose, mouth, throat: DENIES: Tinnitus, Hearing loss, Vertigo, Nasal discharge, Oral lesions, Throat pain, Hoarseness, Ear Pain, Running Nose, Epistaxis, Sinus Pain, Toothache, Odynophagia Cardiovascular: DENIES: Chest pain, Palpitations, Syncope, Dyspnea on Exertion , PND, Lower Extremity Edema, Orthopnea, Claudication Gastrointestinal: DENIES: Abdominal pain, Black stools, Bloody stools, BRB per rectum, Constipation, Diarrhea, GERD, Nausea, Reflux, Vomiting, Difficulty Swallowing, Anorexia Genitourinary: DENIES: Urinary frequency, Urinary incontinence, Urgency, Hematuria, Dysuria, Nocturia Musculoskeletal: DENIES: Joint pain, Muscle aches, Stiffness, Joint Swelling, Back pain, Neck pain Integumentary: DENIES: Abnormal pigmentation, Nail changes, Pruritus, Rash Hematologic/lymphatic: DENIES: Bruising, Lymphadenopathy Immunologic/allergic: DENIES: Eczema, Urticaria Neurologic: DENIES: Abnormal gait, Headache, Localized weakness, Paresthesias, Seizures, Speech Problems, Tremor, Poor Balance Psychiatric: COMPLAINS OF: Anxiety, DENIES: Confusion, Mood changes, Depression , Hallucinations, Agitation, Suicidal Ideation, Homicidal Ideation, Delusions, History of Bipolar, History of Schizophrenia Past Family Social History Past Medical History 1) COPD 2) alcohol these 3) hypertension 4) hyperlipidemia 5) anxiety disorder 6) osteoarthritis 7) chronic low back pain 8) BPH 8) history of abdominal aortic aneurysm Past Surgical History 1) left craniotomy for evacuation of subdural hematoma, December 2015 2) cervical spine surgery 3) multiple orthopedic surgeries including left knee arthroplasty and left wrist surgery unspecified 4) appendectomy Reported Medications Reported Meds & Active Scripts Active Gabapentin 300 Mg Cap 300 Mg PO TID Hydromorphone (Hydromorphone HCl) 2 Mg Tab 2 Mg PO Q8H PRN As needed for severe breakthrough pain Ambien (Zolpidem Tartrate) 5 Mg Tab 5 Mg PO HS PRN 10 Days Reported Oxygen (O2) Device Liter SRINATH.CANULA PRN PRN Oxygen Concentrator Portable Gaseous 2 L/min via Nasal Canula Continuous For 99 months Vitamin B Complex (B-Complex Vitamins) 1 Tab 1 Tab PO DAILY Ventolin Hfa 18 GM Inh (Albuterol Sulfate) 90 Mcg/Act Aer 2 Puff INH Q6H PRN Sertraline (Sertraline HCl) 50 Mg Tab 50 Mg PO DAILY Prednisone 2.5 Mg Tab 2.5 Mg PO BID Potassium Chloride ER (Potassium Chloride) 10 Meq Cap 10 Meq PO BID Multiple Vitamin 1 Tab 1 Tab PO DAILY Cholestyramine 4 Gm/Dose Powd 4 Gm PO BID 1 level scoopful of powder contains 4 grams of cholestyramine. Spiriva Handihaler (Tiotropium Inh) 18 Mcg Cap 18 Mcg INH DAILY 1 capsule = 18 mcg Zantac (Ranitidine HCl) 150 Mg Tab 150 Mg PO BID Singulair (Montelukast Sodium) 10 Mg Tab 10 Mg PO HS Lovastatin 40 Mg Tab 40 Mg PO DAILY Alprazolam 1 Mg Tab 2 Mg PO BID PRN Jessica Allergy (Fexofenadine HCl) 180 Mg Tab 180 Mg PO WEEKLY Amlodipine (Amlodipine Besylate) 5 Mg Tab 5 Mg PO DAILY Advair Diskus Inh (Fluticasone-Salmeterol Inh) 250-50 Mcg/Blist Aer 1 Puff INH BID Rinse mouth after use. Allergies: Coded Allergies: aspirin (Verified Allergy, Severe, ANAPHYLACTIC SHOCK, 11/12/17) SHOCK diclofenac (Verified Allergy, Severe, ANAPHYLACTIC SHOCK, 11/12/17) SHOCK etodolac (Verified Allergy, Severe, ANAPHYLACTIC SHOCK, 11/12/17) SHOCK flurbiprofen (Verified Allergy, Severe, ANAPHYLACTIC SHOCK, 11/12/17) SHOCK ibuprofen (Verified Allergy, Severe, ANAPHYLACTIC SHOCK, 11/12/17) SHOCK indomethacin (Verified Allergy, Severe, ANAPHYLACTIC SHOCK, 11/12/17) SHOCK ketoprofen (Verified Allergy, Severe, ANAPHYLACTIC SHOCK, 11/12/17) SHOCK ketorolac (Verified Allergy, Severe, ANAPHYLACTIC SHOCK, 11/12/17) SHOCK naproxen (Verified Allergy, Severe, ANAPHYLACTIC SHOCK, 11/12/17) SHOCK oxaprozin (Verified Allergy, Severe, ANAPHYLACTIC SHOCK, 11/12/17) SHOCK lisinopril (Verified Allergy, Mild, 11/12/17) Family History Noncontributory Social History - Heavy alcohol use, 1 pint of vodka daily - Current smoker - No illicit street drugs Physical Exam Vital Signs Vital Signs Date Time Temp Pulse Resp B/P (MAP) Pulse Ox O2 Delivery O2 Flow Rate FiO2 11/15/17 10:27 100 16 97 11/15/17 10:19 20 11/15/17 07:43 98.9 98 18 108/82 (91) 96 Physical Exam GENERAL: This is a well-nourished, well-developed patient, in no apparent distress. SKIN: No rashes, ecchymoses or lesions. Cool and dry. HEAD: Atraumatic. Normocephalic. No temporal or scalp tenderness. EYES: Pupils equal round and reactive. Extraocular motions intact. No scleral icterus. No injection or drainage. ENT: Nose without bleeding, purulent drainage or septal hematoma. Throat without erythema, tonsillar hypertrophy or exudate. Uvula midline. Airway patent. NECK: Trachea midline. No JVD or lymphadenopathy. Supple, nontender, no meningeal signs. CARDIOVASCULAR: Regular rate and rhythm without murmurs, gallops, or rubs. RESPIRATORY: Clear to auscultation. Breath sounds equal bilaterally. No wheezes , rales, or rhonchi. GASTROINTESTINAL: Abdomen soft, non-tender, nondistended. No hepato-splenomegaly , or palpable masses. No guarding. MUSCULOSKELETAL: Extremities without clubbing, cyanosis, or edema. No joint tenderness, effusion, or edema noted. No calf tenderness. Negative Homans sign bilaterally. NEUROLOGICAL: Awake and alert. Cranial nerves II through XII intact. Motor and sensory grossly within normal limits. Five out of 5 muscle strength in all muscle groups. Normal speech. Laboratory Laboratory Tests Test 11/15/17 08:35 White Blood Count 7.9 Red Blood Count 4.01 Hemoglobin 13.6 Hematocrit 39.4 Mean Corpuscular Volume 98.2 Mean Corpuscular Hemoglobin 33.9 Mean Corpuscular Hemoglobin Concent 34.5 Red Cell Distribution Width 16.1 Platelet Count 199 Mean Platelet Volume 11.0 Neutrophils (%) (Auto) 70.8 Lymphocytes (%) (Auto) 15.8 Monocytes (%) (Auto) 10.6 Eosinophils (%) (Auto) 2.1 Basophils (%) (Auto) 0.7 Neutrophils # (Auto) 5.6 Lymphocytes # (Auto) 1.2 Monocytes # (Auto) 0.8 Eosinophils # (Auto) 0.2 Basophils # (Auto) 0.1 CBC Comment DIFF FINAL Differential Comment Blood Urea Nitrogen 18 Creatinine 1.15 Random Glucose 90 Total Protein 7.0 Albumin 3.2 Calcium Level 9.3 Alkaline Phosphatase 111 Aspartate Amino Transf (AST/SGOT) 80 Alanine Aminotransferase (ALT/SGPT) 47 Total Bilirubin 0.6 Sodium Level 137 Potassium Level 4.5 Chloride Level 100 Carbon Dioxide Level 28.4 Anion Gap 9 Estimat Glomerular Filtration Rate 63 Result Diagram: 11/15/17 0835 11/15/17 0835 Assessment and Plan Problem List: (1) Low back pain ICD Codes: M54.5 - Low back pain Plan: - comgmt with Neurosurgery - pt has chronic LBP - Pt has had worsening LBP for the last 6 months - Pt's LBP has become more severe in the last week limiting his ambulation - Pt scheduled for surgery with Dr. Eller 11/15/17 for possible laminectomy - Discitis now suspected - obtain MRI lumbar spine - no fever, no leukocytosis - mild contact dermatitis at low back/buttocks - apply lotrisone cream (2) Alcohol abuse ICD Codes: F10.10 - Alcohol abuse, uncomplicated Status: Chronic Plan: - Patient has had recurrent hospitalizations and ER visits due to alcohol intoxication - Patient is at risk for delirium tremens - start scheduled librium - start prn ativan by CIWA protocol - mvi, thiamine, folate. - Pt would benefit from outpt alcohol detox program (3) HTN (hypertension) ICD Codes: I10 - Essential (primary) hypertension Status: Chronic Plan: - pt currently trending hypotensive - observe BP readings (4) COPD (chronic obstructive pulmonary disease) ICD Codes: J44.9 - Chronic obstructive pulmonary disease, unspecified Status: Chronic Plan: - continue symbicort, spiriva - duonebs prn Problem Qualifiers (1) Low back pain: Qualified Codes: M54.5 - Low back pain (2) HTN (hypertension): Qualified Codes: I10 - Essential (primary) hypertension (3) COPD (chronic obstructive pulmonary disease): Olivier Germain DO Nov 15, 2017 11:14
[2017-11-15] MEDS ORDERED: RESP: ALBUTEROL 2.5 MG/IPRATROPIUM 0.5 MG NEB (PRN) NEB (11:15)
[2017-11-15 11:53] LABS: MAGNESIUM 2.2 MG/DL (1.5-2.5)
--- NOTE | 2017-11-15 12:46 | RADRPT ---
EXAM DATE/TIME: 11/15/2017 11:40 [facility] COMPARISON: MRI LUMBAR SPINE W & W/O CONTRAST, January 31, 2016, 15:31. INDICATIONS : Assess possible discitis, radiculopathy. CONTRAST: 21 cc Omniscan (gadodiamide) IV MEDICAL HISTORY : Carcinoma, squamous cell. Hypertension. Chronic obstructive pulmonary disease. SURGICAL HISTORY : Fusion, cervical. Total knee replacement, left. Appendectomy. Rt foot ORIF, subdural hematoma ENCOUNTER: Subsequent ACUITY: 2 day PAIN SCORE: 3/10 LOCATION: lower back TECHNIQUE: Multiplanar multisequence MRI of the lumbar spine was performed with and without contrast. FINDINGS: The most caudal appearing lumbar vertebra is numbered as L5. Sagittal and coronal reformats demonstrate a grade 1 anterolisthesis of L4 relative to L5. The sagitt al T2-weighted images demonstrates abnormal marrow signal throughout the L1 vertebral body. There is fracture line visible throughout the L1 vertebral body on the T1-weighted images. There is contrast e nhancement within this following contrast administration however I believe this is enhancement of a b enign-type compression fracture. There is no evidence of fluid within the disc. There is no bony retr opulsion. The paraspinous soft tissues are unremarkable. T12-L1: The thecal sac has a normal diameter. No evidence of disc bulge or protrusion. The neural foramina are patent bilaterally. L1-L2: The thecal sac has a normal diameter. No evidence of disc bulge or protrusion. The neural foramina are patent bilaterally. L2-L3: There is a degenerated disc with a small broad-based disc bulge and diffuse osteophytic ridging. This effaces the ventral thecal sac. There is mild facet arthritis bilaterally. L3-L4: There is partial desiccation of the disc or the thecal space and neural foramina are adequate. Facet joints are intact. L4-L5: There is a dyskineti, degenerated disc. There is moderate facet arthritis bilaterally. There is grade 1 anterolisthesis of L4 relative to L5. There is minimal disc bulge. There is mild bony foraminal na rrowing bilaterally. L5-S1: The thecal sac has a normal diameter. No evidence of disc bulge or protrusion. The neural foramina are patent bilaterally. CONCLUSION: 1. The examination demonstrates abnormal marrow signal in the L1 vertebral body. There is no signific ant fluid within the disc space. There is some enhancement within this following contrast administrat ion however I believe this is more consistent with acute compression fracture rather than infection. There is no significant bony retropulsion. 2. Grade 1 anterolisthesis of L4 relative to L5 with severely degenerated disc. Fredrick Pop MD on November 15, 2017 at 12:38 Board Certified Radiologist. This report was verified electronically.
--- NOTE | 2017-11-15 13:27 | RADRPT ---
EXAM DATE/TIME: 11/15/2017 10:53 [place] COMPARISON: CT LUMBAR SPINE W/O CONTRAST, January 15, 2016, 15:56. INDICATIONS : Lower back pain. RADIATION DOSE: 35.86 CTDIvol (mGy) MEDICAL HISTORY : Hypertension. Cerebrovascular disease. Renal calculi. SURGICAL HISTORY : Appendectomy. ENCOUNTER: Initial ACUITY: 1 yr PAIN SCALE: 7/10 LOCATION: Bilateral Lumbar Spine TECHNIQUE: Volumetric scanning of the lumbar spine was performed. Multiplanar reconstructions in the sagittal, coronal and oblique axial planes were performed. Using automated exposure control and adjustment of the mA and/or kV according to patient size, radiation dose was kept as low as reasonably achievable t o obtain optimal diagnostic quality images. DICOM format image data is available electronically for review and comparison. FINDINGS: ALIGNMENT: There is a stable grade 1 spinal listhesis L4 and L5. 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 VERTEBRAE: There is stable mild anterior wedge compression superior vertebrae end p[late of L1 vertebral body. Anterior marginal spurring is noted T11 through L1. T12-L1: The thecal sac has a normal diameter. No evidence of disc bulge or protrusion. The neural foramina are patent bilaterally. L1-L2: The thecal sac has a normal diameter. No evidence of disc bulge or protrusion. The neural foramina are patent bilaterally. L2-L3: The thecal sac has a normal diameter. No evidence of disc bulge or protrusion. The neural foramina are patent bilaterally. L3-L4: Relative to prior study there is a small central disc protrusion which is new. L4-L5: Stable Grade 1 spondylolisthesis L4 and L5. Degenerative disc disease narrowing and air vacuum sign with bilateral spondylolysis of L4. L5-S1: The thecal sac has a normal diameter. No evidence of disc bulge or protrusion. The neural foramina are patent bilaterally. CONCLUSION: 1. Stable L4-5 degenerative disc disease Grade 1 spondylolisthesis secondary to bilateral spondylolys is of L4. 2. New minimal central disc bulge L3-4. 3. Atherosclerotic change of the aorta with a probable aneurysm greater than 3 cm in size at the leve l of L3-4. José Antonio Tello MD on November 15, 2017 at 11:42 Board Certified Radiologist. This report was verified electronically.
[2017-11-15] MEDS ORDERED: GADODIAMIDE PF 287 MG/ML 5 ML VIAL (for RAD MRI) IV PUSH ONE (13:29)
[2017-11-15] MEDS: BETAMETHASONE/CLOTRIMAZOLE CREAM 15 GM TOPICAL SCH ×2 (14:00→22:29)
[2017-11-15] MEDS: GABAPENTIN 300 MG CAP PO SCH ×2 (14:05→19:08)
--- NOTE | 2017-11-15 15:02 | EKG ---
Date Performed: 11/15/2017 Time Performed: 07:18:19 PTAGE: 67 years EKG: Sinus rhythm MARKED LEFT AXIS DEVIATION Since previous tracing, no significant change noted ABNORMAL ECG PREVIOUS TRACING : 10/04/2016 05.25 DOCTOR: Edson Dwyer Interpretating Date/Time 11/15/2017 14:59:52
[2017-11-15] MEDS: ENOXAPARIN SODIUM 40 MG/0.4 ML SYRINGE SQ SCH (16:00)
[2017-11-15] MEDS: chlordiazePOXIDE 25 MG CAP PO SCH (16:00)
[2017-11-15] MEDS: MULTIVITAMINS/MINERALS THERAPEUTIC TAB PO SCH (16:00)
[2017-11-15] MEDS: THIAMINE HCL 100 MG TAB PO SCH (16:00)
[2017-11-15] MEDS: PANTOPRAZOLE SOD 40 MG DELAYED RELEASE TAB PO SCH (16:00)
[2017-11-15] MEDS: FOLIC ACID 1 MG TAB PO SCH (16:00)
[2017-11-15 18:08] VITALS: BP 136/70; PULSE 83; RESP 20; TEMP 98.3; O2SAT 97
[2017-11-15 20:30] VITALS: BP 121/58; PULSE 88; RESP 17; TEMP 98.1; O2SAT 95
[2017-11-15] MEDS ORDERED: predniSONE 5 MG TAB PO SCH (21:00)
[2017-11-15] MEDS: BUDESONIDE-FORMOTEROL 160/4.5 MCG INHALER INH SCH (21:00)
[2017-11-15] MEDS ORDERED: FAMOTIDINE 20 MG TAB PO SCH (21:00)
[2017-11-15] MEDS ORDERED: CHOLESTYRAMINE 4 GM PACKET PO SCH (21:00)
[2017-11-15] MEDS: PCA - TOTAL MG DILAUDID DELIVERED PER SHIFT OTHER SCH (22:00)
[2017-11-15] MEDS: DOCUSATE SODIUM 100 MG CAP PO SCH (22:23)
[2017-11-15] MEDS: POTASSIUM CHLORIDE 10 MEQ CAP PO SCH (22:23)
[2017-11-15] MEDS: MONTELUKAST SODIUM 10 MG TAB PO SCH (22:23)
[2017-11-16] VITALS (7 sets, daily range): BP systolic 125–150; BP diastolic 74–87; PULSE 70–80; RESP 17–20; TEMP 97.7–99; O2SAT 94–99
[2017-11-16 01:25] LABS: TOTAL BILIRUBIN ADULT 0.6 MG/DL (0.2-1.0); TOTAL PROTEIN 7.2 GM/DL (6.4-8.2)
[2017-11-16 01:26] LABS: ALBUMIN 3.3 GM/DL (3.4-5.0); DIRECT BILIRUBIN ADULT 0.1 MG/DL (0.0-0.2); INDIRECT BILIRUBIN 0.5 MG/DL (0.0-0.8)
[2017-11-16] MEDS: chlordiazePOXIDE 25 MG CAP PO SCH ×2 (04:24→16:58)
[2017-11-16] MEDS: PCA - TOTAL MG DILAUDID DELIVERED PER SHIFT OTHER SCH (06:00)
[2017-11-16] MEDS: LACTATED RINGER'S 1000 ML INJ 1,000 ML IV SCH (07:45)
[2017-11-16] MEDS ORDERED: VITAMIN B COMPLEX/VIT C TAB PO SCH (09:00)
[2017-11-16] MEDS ORDERED: amLODIPine BESYLATE 5 MG TAB PO SCH (09:00)
[2017-11-16] MEDS ORDERED: MULTIVITAMIN TAB PO SCH (09:00)
[2017-11-16] MEDS: 1/2 NS + KCL 20 MEQ INJ 1,000 ML IV SCH (10:00)
[2017-11-16] MEDS: MULTIVITAMINS/MINERALS THERAPEUTIC TAB PO SCH (10:11)
[2017-11-16] MEDS: POTASSIUM CHLORIDE 10 MEQ CAP PO SCH ×2 (10:11→20:52)
[2017-11-16] MEDS: PRAVASTATIN SOD 40 MG TAB PO SCH (10:11)
[2017-11-16] MEDS: THIAMINE HCL 100 MG TAB PO SCH (10:12)
[2017-11-16] MEDS: GABAPENTIN 300 MG CAP PO SCH ×3 (10:12→16:59)
[2017-11-16] MEDS: PANTOPRAZOLE SOD 40 MG DELAYED RELEASE TAB PO SCH (10:12)
[2017-11-16] MEDS: DOCUSATE SODIUM 100 MG CAP PO SCH ×2 (10:12→20:52)
[2017-11-16] MEDS: SERTRALINE HCL 50 MG TAB PO SCH (10:13)
[2017-11-16] MEDS: FOLIC ACID 1 MG TAB PO SCH (10:13)
[2017-11-16] MEDS: BETAMETHASONE/CLOTRIMAZOLE CREAM 15 GM TOPICAL SCH ×2 (10:13→20:54)
[2017-11-16] MEDS: BUDESONIDE-FORMOTEROL 160/4.5 MCG INHALER INH SCH ×2 (10:41→20:55)
[2017-11-16] MEDS: TIOTROPIUM BROMIDE 18 MCG INH INH SCH (10:42)
--- NOTE | 2017-11-16 10:49 | HHI.NSPN ---
(Joseph Bartholomew Lorena WEBER) History Chief Complaint: Back pain. (Joseph BartholomewChristiano WEBER) Interval History 11/15: 67-year-old male with history of chronic progressive severe low back pain. He states that the back pain started approximately 2 months ago, becoming of constant moderate severity approximately 6 months ago. He was seen for initial neurosurgery office evaluation on 09/07/17. He states that in the past week his pain has become extremely severe. His states that the patient has not been able to get out of bed for the past week, having difficulty even ambulating to the bathroom. He was given MS Contin recently for pain control, pending surgery which was tentatively scheduled for 2017. This apparently caused some itching and he has been using a back cold reduction roller to scratch his back and has developed some abrasions and pustules over the past week. His skin is now so tender that he cannot lay on his back or touch his skin. He does not have any fevers or chills. The pain continues to be primarily in the central to right lower lumbar region radiating across the right posterior iliac crest. He denies any pain weakness or numbness in the lower extremities or problems with bowel or bladder dysfunction. He came to the hospital today tentatively for surgery, which has been canceled due exam findings consistent with cellulitis as well as concern for deeper infection including possible discitis given the severity of his pain in the past week. The patient does have a history of significant alcohol abuse, drinking a pint of vodka daily. He has had multiple emergency room visits due to alcohol intoxication and has a history of recent multiple falls. His last visit to the emergency room was 09/22/17. Other medical problems include history of COPD, asthma, AAA, anxiety disorder, 11/16: Initially when this practitioner went to see the patient he was in the bathroom. Nursing reported that the patient is up and about in the room and is doing well. She does report that he has some mild redness to the lower back. When seen the patient was coming out of the bathroom and sat on the edge of the bed. He has minimal redness to the midline lumbar region but he is very painful to touch at the region. His only complaint is the low back pain. He denies any pain, numbness, tingling or weakness to the lower extremities. (Joseph Bartholomew) Exam Results 11/14/17 11/14/17 11/15/17 11/15/17 11/16/17 11/16/17 06:00 18:00 06:00 18:00 06:00 18:00 Intake Total 30 ml 360 ml Output Total 1100 ml Balance 30 ml -740 ml Intake Oral 360 ml IV Total 30 ml Output Urine Total 1100 ml Vital Signs Date Time Temp Pulse Resp B/P (MAP) Pulse Ox O2 Delivery O2 Flow Rate FiO2 11/16/17 08:21 98.3 73 20 132/81 (98) 96 11/16/17 07:40 94 Nasal Cannula 1.00 11/16/17 06:00 18 11/16/17 04:22 99.0 72 18 126/75 (92) 95 11/16/17 00:30 97.7 70 17 125/74 (91) 94 11/15/17 22:00 18 11/15/17 20:30 98.1 88 17 121/58 (79) 95 11/15/17 18:08 98.3 83 20 136/70 (92) 97 11/15/17 17:22 98.1 79 16 118/74 (89) 100 11/15/17 15:10 98 20 97 11/15/17 15:10 Nasal Cannula 1 11/15/17 13:10 98 Nasal Cannula 1 11/15/17 13:04 98.0 93 20 105/64 (78) 94 11/15/17 10:50 20 11/15/17 10:27 100 16 97 11/15/17 10:19 20 11/15/17 07:43 98.9 98 18 108/82 (91) 96 (Joseph Bartholomew) Physical Examination GENERAL: Awake & alert, ambulating w/o difficulty in the room. Affect essentially normal. Appears mildly uncomfortable, no distress. His respiratory effort is mildly laboured secondary to his chronic COPD. HEENT: Normocephalic, atraumatic. MUSCULOSKELETAL: LOERA w/o difficulty, no evident clubbing or deformity. Severe midline lumbar spine TTP. Minimal erythema to the area w/small wound lesions, no evident drainage. NEUROLOGICAL: AAOx3. Speech clear & appropriate. Follows simple commands w/o difficulty. Sensation intact to light touch. Motor strength is 5/5 to all major flexion & extension muscle groups of the lower extremities. (Joseph Bartholomew) Lab, Micro, Other Results Recent Impressions Lumbar Spine MRI 11/15/17 0845 Signed Impressions: Service Date/Time: Wednesday, November 15, 2017 11:40 - CONCLUSION: 1. The examination demonstrates abnormal marrow signal in the L1 vertebral body. There is no significant fluid within the disc space. There is some enhancement within this following contrast administration however I believe this is more consistent with acute compression fracture rather than infection. There is no significant bony retropulsion. 2. Grade 1 anterolisthesis of L4 relative to L5 with severely degenerated disc. Fredrick Pop MD Lumbar Spine CT 11/15/17 0000 Signed Impressions: Service Date/Time: Wednesday, November 15, 2017 10:53 - CONCLUSION: 1. Stable L4- 5 degenerative disc disease Grade 1 spondylolisthesis secondary to bilateral spondylolysis of L4. 2. New minimal central disc bulge L3-4. 3. 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 José Antonio Tello MD Laboratory Tests Test 11/15/17 08:35 11/15/17 14:45 White Blood Count 7.9 TH/MM3 Red Blood Count 4.01 MIL/MM3 Hemoglobin 13.6 GM/DL Hematocrit 39.4 % Mean Corpuscular Volume 98.2 FL Mean Corpuscular Hemoglobin 33.9 PG Mean Corpuscular Hemoglobin Concent 34.5 % Red Cell Distribution Width 16.1 % Platelet Count 199 TH/MM3 Mean Platelet Volume 11.0 FL Neutrophils (%) (Auto) 70.8 % Lymphocytes (%) (Auto) 15.8 % Monocytes (%) (Auto) 10.6 % Eosinophils (%) (Auto) 2.1 % Basophils (%) (Auto) 0.7 % Neutrophils # (Auto) 5.6 TH/MM3 Lymphocytes # (Auto) 1.2 TH/MM3 Monocytes # (Auto) 0.8 TH/MM3 Eosinophils # (Auto) 0.2 TH/MM3 Basophils # (Auto) 0.1 TH/MM3 CBC Comment DIFF FINAL Differential Comment Blood Urea Nitrogen 18 MG/DL Creatinine 1.15 MG/DL Random Glucose 90 MG/DL Total Protein 7.0 GM/DL Albumin 3.2 GM/DL Calcium Level 9.3 MG/DL Alkaline Phosphatase 111 U/L Aspartate Amino Transf (AST/SGOT) 80 U/L Alanine Aminotransferase (ALT/SGPT) 47 U/L Total Bilirubin 0.6 MG/DL Sodium Level 137 MEQ/L Potassium Level 4.5 MEQ/L Chloride Level 100 MEQ/L Carbon Dioxide Level 28.4 MEQ/L Anion Gap 9 MEQ/L Estimat Glomerular Filtration Rate 63 ML/MIN Magnesium Level 2.2 MG/DL Direct Bilirubin 0.1 MG/DL Indirect Bilirubin 0.5 MG/DL Ethyl Alcohol Level LESS THAN 3 MG/DL Urine Opiates Screen POS Urine Barbiturates Screen NEG Urine Amphetamines Screen NEG Urine Benzodiazepines Screen POS Urine Cocaine Screen NEG Urine Cannabinoids Screen NEG (Joseph Barhtolomew) Medical Decision Making Impression and Plan Impression: 1. Lumbar spondylosis and degenerative disc disease with grade 1 L4 5 anterior listhesis, probable pars defect. 2. Severe progressive intractable low back pain. Probable component of lumbar radiculopathy. Pain much more severe in the past week, preventing ambulation. Assessed for possible soft tissue infection, discitis. 3. Lumbar cellulitis 4. Chronic alcohol abuse 5. COPD, asthma 6. Hypertension 7. Hyperlipidemia 8. History of AAA 9. Anxiety disorder Patient doing well, still w/severe pain to lumbar spine, minimal erythema to area. MRI lumbar spine demonstrates abnormal marrow signal in the L1 vertebral body, no significant fluid w/i disc space, enhancement after contrast administration felt to be c/w an acute compression fracture instead of infectious process. Grade 1 anterolisthesis of L4 on L5 w/severe disc degeneration. CT lumbar spine demonstrates stable L4-5 DDD and bilateral spondylolysis of L4, minimal central disc bulge at L3-4 which is new. Also noted was a probable aneurysm greater than 3 cm at the level of L3-4l. Plan: Discussed plan of care with patient. Discussed plan of care with Nursing. Medical management per Hospitalist. [place] for pain control. Narcotic use will be closely monitored particularly in view of his history of chronic alcohol abuse. Physical therapy. LSO brace. DVT prophylaxis. Diphenhydramine PRN itching. Monitor low back skin for cellulitis. Appreciate Hospitalist's input and assistance. (Joseph Bartholomew) Attending Statement The exam, history, and the medical decision-making described in the above note were completed with the assistance of the mid-level provider. I reviewed and agree with the findings presented. I attest that I had a [id number] encounter with the patient on the same day, and personally performed and documented my assessment and findings in the medical record. On my examination today the patient is awake alert oriented and conversant Persistent anxiety Extraocular movements intact Speech is clear Seems to have somewhat diminished judgment and insight All simple commands well Sensation intact light touch all extremities Strength within normal limits all extremities major flexion and extension groups 11/13/[address] scan lumbar spine images reviewed by the undersigned. Patient has a acute appearing L1 mild mid to upper compression fracture without significant retropulsion. No canal compromise or significant kyphosis. Discussed with the patient. He is advised it would be best for him to proceed with inpatient rehabilitation. The TLSO brace has been requested. Patient appears quite adamant that he go home. I advised him that we are concerned regarding further falls. He initially denies that he has had any falls. Then states that maybe he has had 1 a couple of weeks ago. He has signed out in the past AMA. Has a history of significant alcohol use which may be affecting his judgment and desire for discharge home. Continue physical therapy Discussed with medicine service No surgical intervention planned at this point (Jayme Eller MD) Joseph Bartholomew Nov 16, 2017 10:49 Jayme Eller MD Nov 16, 2017 20:39
[2017-11-16] MEDS: HYDROmorphone HCL PCA 6 MG/30 ML IV SCH (11:03)
[2017-11-16] MEDS: ENOXAPARIN SODIUM 40 MG/0.4 ML SYRINGE SQ SCH (16:00)
--- NOTE | 2017-11-16 16:43 | HHI.PR ---
Subjective Remarks Pt appears more comfortable today but is on Dilaudid BRIDGE BUILDER He was able to ambulate with the use of the walker down the lyons today Objective Vitals Vital Signs Date Time Temp Pulse Resp B/P (MAP) Pulse Ox O2 Delivery O2 Flow Rate FiO2 11/16/17 15:57 98.4 80 20 139/87 (104) 97 11/16/17 11:35 98.1 75 20 150/87 (108) 99 11/16/17 11:03 16 11/16/17 08:21 98.3 73 20 132/81 (98) 96 11/16/17 07:40 94 Nasal Cannula 1.00 11/16/17 06:00 18 11/16/17 04:22 99.0 72 18 126/75 (92) 95 11/16/17 00:30 97.7 70 17 125/74 (91) 94 11/15/17 22:00 18 11/15/17 20:30 98.1 88 17 121/58 (79) 95 11/15/17 18:08 98.3 83 20 136/70 (92) 97 11/15/17 17:22 98.1 79 16 118/74 (89) 100 11/16/17 11/16/17 11/17/17 15:00 23:00 07:00 Intake Total 360 ml Output Total 400 ml Balance -40 ml Intake Oral 360 ml Output Urine Total 400 ml # Bowel Movements 1 Result Diagram: 11/15/17 0835 11/15/17 0835 Other Results Laboratory Tests Test 11/15/17 08:35 11/15/17 14:45 White Blood Count 7.9 TH/MM3 Red Blood Count 4.01 MIL/MM3 Hemoglobin 13.6 GM/DL Hematocrit 39.4 % Mean Corpuscular Volume 98.2 FL Mean Corpuscular Hemoglobin 33.9 PG Mean Corpuscular Hemoglobin Concent 34.5 % Red Cell Distribution Width 16.1 % Platelet Count 199 TH/MM3 Mean Platelet Volume 11.0 FL Neutrophils (%) (Auto) 70.8 % Lymphocytes (%) (Auto) 15.8 % Monocytes (%) (Auto) 10.6 % Eosinophils (%) (Auto) 2.1 % Basophils (%) (Auto) 0.7 % Neutrophils # (Auto) 5.6 TH/MM3 Lymphocytes # (Auto) 1.2 TH/MM3 Monocytes # (Auto) 0.8 TH/MM3 Eosinophils # (Auto) 0.2 TH/MM3 Basophils # (Auto) 0.1 TH/MM3 CBC Comment DIFF FINAL Differential Comment Blood Urea Nitrogen 18 MG/DL Creatinine 1.15 MG/DL Random Glucose 90 MG/DL Total Protein 7.0 GM/DL Albumin 3.2 GM/DL Calcium Level 9.3 MG/DL Alkaline Phosphatase 111 U/L Aspartate Amino Transf (AST/SGOT) 80 U/L Alanine Aminotransferase (ALT/SGPT) 47 U/L Total Bilirubin 0.6 MG/DL Sodium Level 137 MEQ/L Potassium Level 4.5 MEQ/L Chloride Level 100 MEQ/L Carbon Dioxide Level 28.4 MEQ/L Anion Gap 9 MEQ/L Estimat Glomerular Filtration Rate 63 ML/MIN Magnesium Level 2.2 MG/DL Direct Bilirubin 0.1 MG/DL Indirect Bilirubin 0.5 MG/DL Ethyl Alcohol Level LESS THAN 3 MG/DL Urine Opiates Screen POS Urine Barbiturates Screen NEG Urine Amphetamines Screen NEG Urine Benzodiazepines Screen POS Urine Cocaine Screen NEG Urine Cannabinoids Screen NEG Imaging Last Impressions Lumbar Spine MRI 11/15/17 0845 Signed Impressions: Service Date/Time: Wednesday, November 15, 2017 11:40 - CONCLUSION: 1. The examination demonstrates abnormal marrow signal in the L1 vertebral body. There is no significant fluid within the disc space. There is some enhancement within this following contrast administration however I believe this is more consistent with acute compression fracture rather than infection. There is no significant bony retropulsion. 2. Grade 1 anterolisthesis of L4 relative to L5 with severely degenerated disc. Fredrick Pop MD Lumbar Spine CT 11/15/17 0000 Signed Impressions: Service Date/Time: Wednesday, November 15, 2017 10:53 - CONCLUSION: 1. Stable L4- 5 degenerative disc disease Grade 1 spondylolisthesis secondary to bilateral spondylolysis of L4. 2. New minimal central disc bulge L3-4. 3. 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 José Antonio Tello MD Objective Remarks General: NAD, AAox3 Chest: CTA Cardiac: Regular Abd: +BS, soft ND/NT Ext: no edema A/P Problem List: (1) Low back pain ICD Codes: M54.5 - Low back pain Plan: - comgmt with Neurosurgery - pt has chronic LBP - Pt has had worsening LBP for the last 6 months - Pt's LBP has become more severe in the last week limiting his ambulation - Pt scheduled for surgery with Dr. Eller 11/15/17 for possible laminectomy but there was concern for possible discitis so surgery was held. - MRI lumbar spine (11/15) --> The examination demonstrates abnormal marrow signal in the L1 vertebral body, no significant fluid within the disc space, felt that the findings are more consistent with acute compression fracture rather than infection. There is no significant bony retropulsion. Grade 1 anterolisthesis of L4 relative to L5 with severely degenerated disc. - no fever, no leukocytosis - mild contact dermatitis at low back/buttocks - apply Lotrisone cream - Stop BRIDGE BUILDER and convert to Duragesic patch - LSO brace when OOB - Case discussed with Neurosurgery - Pt refusing SNF. He will need HHC/PT at the end of this hospitalization (2) Alcohol abuse ICD Codes: F10.10 - Alcohol abuse, uncomplicated Status: Chronic Plan: - Patient has had recurrent hospitalizations and ER visits due to alcohol intoxication - Patient is at risk for delirium tremens - Cont. scheduled Librium 25mg Q12H - Ativan PRN by [facility] protocol - mvi, thiamine, folate. (3) HTN (hypertension) ICD Codes: I10 - Essential (primary) hypertension Status: Chronic Plan: - Pts BP had been trending low and home meds were held - His readings are improved today - Pt takes Norvasc 5mg po daily at home - observe BP readings (4) COPD (chronic obstructive pulmonary disease) ICD Codes: J44.9 - Chronic obstructive pulmonary disease, unspecified Status: Chronic Plan: - continue symbicort, spiriva - duonebs prn Assessment and Plan Patient examined. Assessment and plan formulated with Guillermina Kohler PA-C. I agree with the above. Problem Qualifiers (1) Low back pain: Qualified Codes: M54.5 - Low back pain (2) HTN (hypertension): Qualified Codes: I10 - Essential (primary) hypertension (3) COPD (chronic obstructive pulmonary disease): Guillermina Kohler Nov 16, 2017 16:42 Olivier Germain DO Nov 19, 2017 00:33
--- NOTE | 2017-11-16 17:27 | HHI.FF ---
Face to Face Verification Diagnosis: (1) Vertebral compression fracture (2) HTN (hypertension) (3) Alcohol abuse (4) COPD (chronic obstructive pulmonary disease) Physical Therapy Order: Evaluate and Treat, Improve ambulation, Strength and gait training Home Health Nursing Order: Medical education Signs/symptoms of disease process Medication education-adverse effect Nursing assessment with vital signs I have seen patient Jayme BuckJr on 11/16/17. My clinical findings support the need for the requested home health care services because: Ltd mobility - disease progression Deconditioned w/ increased weakness Med compliance is questionable Limited ability to care for self Need for psychosocial assistance I certify that my clinical findings support that this patient is homebound because: Impaired cognitive ability/safety Unsafe to leave home unassisted Need for psychosocial assistance Unable to use public transportation Olivier Germain DO Nov 16, 2017 17:27
[2017-11-16] MEDS ORDERED: REMOVE OLD DURAGESIC (FENTANYL) PATCH T-DERMAL SCH (18:00)
[2017-11-16] MEDS ORDERED: fentaNYL 25 MCG/HR PATCH T-DERMAL SCH (18:00)
[2017-11-16] MEDS: MONTELUKAST SODIUM 10 MG TAB PO SCH (20:52)
[2017-11-17] VITALS: BP 161/87; PULSE 76; RESP 20; TEMP 98.2; O2SAT 96
[2017-11-17 04:00] VITALS: BP 154/86; PULSE 69; RESP 21; TEMP 98.7; O2SAT 94
[2017-11-17] MEDS: ACETAMINOPHEN/HYDROcodone 325 MG/5 MG TAB PO PRN ×2 (04:19→10:03)
[2017-11-17] MEDS: chlordiazePOXIDE 25 MG CAP PO SCH (04:19)
[2017-11-17 08:26] VITALS: BP 149/85; PULSE 68; RESP 18; TEMP 98.7; O2SAT 95
[2017-11-17] MEDS: PRAVASTATIN SOD 40 MG TAB PO SCH (09:57)
[2017-11-17] MEDS: POTASSIUM CHLORIDE 10 MEQ CAP PO SCH (09:57)
[2017-11-17] MEDS: PANTOPRAZOLE SOD 40 MG DELAYED RELEASE TAB PO SCH (09:57)
[2017-11-17] MEDS: GABAPENTIN 300 MG CAP PO SCH ×2 (09:57→12:49)
[2017-11-17] MEDS: THIAMINE HCL 100 MG TAB PO SCH (09:57)
[2017-11-17] MEDS: FOLIC ACID 1 MG TAB PO SCH (09:57)
[2017-11-17] MEDS: SERTRALINE HCL 50 MG TAB PO SCH (09:57)
[2017-11-17] MEDS: MULTIVITAMINS/MINERALS THERAPEUTIC TAB PO SCH (09:57)
[2017-11-17] MEDS: TIOTROPIUM BROMIDE 18 MCG INH INH SCH (09:58)
[2017-11-17] MEDS: BUDESONIDE-FORMOTEROL 160/4.5 MCG INHALER INH SCH (09:59)
[2017-11-17] MEDS: BETAMETHASONE/CLOTRIMAZOLE CREAM 15 GM TOPICAL SCH (09:59)
[2017-11-17] MEDS: DOCUSATE SODIUM 100 MG CAP PO SCH (10:06)
[2017-11-17] MEDS: LACTATED RINGER'S 1000 ML INJ 1,000 ML IV SCH (10:06)
[2017-11-17] MEDS: 1/2 NS + KCL 20 MEQ INJ 1,000 ML IV SCH (10:06)
--- NOTE | 2017-11-17 10:26 | HHI.PR ---
Subjective Remarks Patient ambulating about the room appears to be in no acute distress although reports pain 05/10 Objective Vitals Vital Signs Date Time Temp Pulse Resp B/P (MAP) Pulse Ox O2 Delivery O2 Flow Rate FiO2 11/17/17 08:26 98.7 68 18 149/85 (106) 95 11/17/17 04:00 98.7 69 21 154/86 (108) 94 11/17/17 00:00 98.2 76 20 161/87 (111) 96 11/16/17 20:00 98.2 77 18 138/75 (96) 94 11/16/17 15:57 98.4 80 20 139/87 (104) 97 11/16/17 11:35 98.1 75 20 150/87 (108) 99 11/16/17 11:03 16 Result Diagram: 11/15/17 0835 11/15/17 0835 Other Results Laboratory Tests Test 11/15/17 08:35 11/15/17 14:45 White Blood Count 7.9 TH/MM3 Red Blood Count 4.01 MIL/MM3 Hemoglobin 13.6 GM/DL Hematocrit 39.4 % Mean Corpuscular Volume 98.2 FL Mean Corpuscular Hemoglobin 33.9 PG Mean Corpuscular Hemoglobin Concent 34.5 % Red Cell Distribution Width 16.1 % Platelet Count 199 TH/MM3 Mean Platelet Volume 11.0 FL Neutrophils (%) (Auto) 70.8 % Lymphocytes (%) (Auto) 15.8 % Monocytes (%) (Auto) 10.6 % Eosinophils (%) (Auto) 2.1 % Basophils (%) (Auto) 0.7 % Neutrophils # (Auto) 5.6 TH/MM3 Lymphocytes # (Auto) 1.2 TH/MM3 Monocytes # (Auto) 0.8 TH/MM3 Eosinophils # (Auto) 0.2 TH/MM3 Basophils # (Auto) 0.1 TH/MM3 CBC Comment DIFF FINAL Differential Comment Blood Urea Nitrogen 18 MG/DL Creatinine 1.15 MG/DL Random Glucose 90 MG/DL Total Protein 7.0 GM/DL Albumin 3.2 GM/DL Calcium Level 9.3 MG/DL Alkaline Phosphatase 111 U/L Aspartate Amino Transf (AST/SGOT) 80 U/L Alanine Aminotransferase (ALT/SGPT) 47 U/L Total Bilirubin 0.6 MG/DL Sodium Level 137 MEQ/L Potassium Level 4.5 MEQ/L Chloride Level 100 MEQ/L Carbon Dioxide Level 28.4 MEQ/L Anion Gap 9 MEQ/L Estimat Glomerular Filtration Rate 63 ML/MIN Magnesium Level 2.2 MG/DL Direct Bilirubin 0.1 MG/DL Indirect Bilirubin 0.5 MG/DL Ethyl Alcohol Level LESS THAN 3 MG/DL Urine Opiates Screen POS Urine Barbiturates Screen NEG Urine Amphetamines Screen NEG Urine Benzodiazepines Screen POS Urine Cocaine Screen NEG Urine Cannabinoids Screen NEG Imaging Last Impressions Lumbar Spine MRI 11/15/17 0845 Signed Impressions: Service Date/Time: Wednesday, November 15, 2017 11:40 - CONCLUSION: 1. The examination demonstrates abnormal marrow signal in the L1 vertebral body. There is no significant fluid within the disc space. There is some enhancement within this following contrast administration however I believe this is more consistent with acute compression fracture rather than infection. There is no significant bony retropulsion. 2. Grade 1 anterolisthesis of L4 relative to L5 with severely degenerated disc. Fredrick Pop MD Lumbar Spine CT 11/15/17 0000 Signed Impressions: Service Date/Time: Wednesday, November 15, 2017 10:53 - CONCLUSION: 1. Stable L4- 5 degenerative disc disease Grade 1 spondylolisthesis secondary to bilateral spondylolysis of L4. 2. New minimal central disc bulge L3-4. 3. 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 José Antonio Tello MD Objective Remarks General: NAD, AAox3 Chest: CTA Cardiac: Regular Abd: +BS, soft ND/NT Ext: no edema Procedures none A/P Problem List: (1) Low back pain ICD Codes: M54.5 - Low back pain Plan: - comgmt with Neurosurgery - pt has chronic LBP - Pt has had worsening LBP for the last 6 months - Pt's LBP has become more severe in the last week limiting his ambulation - Pt scheduled for surgery with Dr. Eller 11/15/17 for possible laminectomy but there was concern for possible discitis so surgery was held. - MRI lumbar spine (11/15) --> The examination demonstrates abnormal marrow signal in the L1 vertebral body, no significant fluid within the disc space, felt that the findings are more consistent with acute compression fracture rather than infection. There is no significant bony retropulsion. Grade 1 anterolisthesis of L4 relative to L5 with severely degenerated disc. - no fever, no leukocytosis - mild contact dermatitis at low back/buttocks- improving - apply Lotrisone cream - Stop FISH HEADER and convert to Duragesic patch 11/16 - LSO brace when OOB - Case discussed with Neurosurgery Dr. Eller who plans to reevaluate patient this afternoon to determine plan regarding surgery possible laminectomy vs rehab - Pt refusing SNF. He will need HHC/PT at the end of this hospitalization (2) Alcohol abuse ICD Codes: F10.10 - Alcohol abuse, uncomplicated Status: Chronic Plan: - Patient has had recurrent hospitalizations and ER visits due to alcohol intoxication - Patient is at risk for delirium tremens - DC scheduled Librium 25mg Q12H, monitor overnight - Ativan PRN by [place] protocol - mvi, thiamine, folate. (3) HTN (hypertension) ICD Codes: I10 - Essential (primary) hypertension Status: Chronic Plan: - Pts BP had been trending low and home meds were held - His readings are improved today - Pt takes Norvasc 5mg po daily at home - observe BP readings (4) COPD (chronic obstructive pulmonary disease) ICD Codes: J44.9 - Chronic obstructive pulmonary disease, unspecified Status: Chronic Plan: - continue symbicort, spiriva - duonebs prn Assessment and Plan Patient examined. Assessment and plan formulated with Cheyenne Childers PA-C. I agree with the above. Problem Qualifiers (1) Low back pain: Qualified Codes: M54.5 - Low back pain (2) HTN (hypertension): Qualified Codes: I10 - Essential (primary) hypertension (3) COPD (chronic obstructive pulmonary disease): Cheyenne Childers Nov 17, 2017 10:26 Olivier Germain DO Nov 19, 2017 00:33
[2017-11-17 11:19] VITALS: O2SAT 95
[2017-11-17 12:00] VITALS: BP 118/58; PULSE 87; RESP 18; TEMP 98.4; O2SAT 93
--- NOTE | 2017-11-17 13:30 | HHI.NSPN ---
History Chief Complaint: Back pain. Interval History 67-year-old male with history of progressive severe low back pain with radiation to the lateral lumbar region. He was initially scheduled for surgery on 11/16/17, but had developed a rash over the lumbar spine region, potentially related to some itching from MS Contin. He had persistent intractable pain and was admitted for further evaluation, pain control, further imaging due to concern of possible infection. His subsequent MRI has revealed an L1 fracture without significant deformity or retropulsion. He has been ambulating relatively well with physical therapy although complains of 8/10 pain when out of bed. Exam Results Vital Signs Date Time Temp Pulse Resp B/P (MAP) Pulse Ox O2 Delivery O2 Flow Rate FiO2 11/17/17 11:19 95 11/17/17 08:26 98.7 68 18 149/85 (106) 11/16/17 07:40 Nasal Cannula 1.00 Physical Examination GENERAL: He is in bed, complaining of pain but appears relatively comfortable HEENT: Normocephalic, atraumatic. Neck: Nontender. Normal range of motion Musculoskeletal: No significant long bone or joint deformity in the upper or lower extremities. No atrophy or fasciculations. No pain with extremity joint range of motion. No significant hip tenderness. NEUROLOGICAL: AAOx3. Speech clear & appropriate. No evidence of anxiety or depression Follows simple commands w/o difficulty. Appears to have reasonable judgment and insight Sensation intact to light touch in all extremities. Motor strength is 5/5 to all major flexion & extension muscle groups of the lower extremities. Champ's response absent bilateral Lab, Micro, Other Results 11/15/17 CT scan and MRI lumbar spine images reviewed by the undersigned. There is abnormal signal intensity, edema and the L1 vertebral body without significant compression deformity or retropulsion. Significant L4 5 degenerative disc disease with grade 1 spondylolisthesis Lumbar Spine MRI 11/15/17 0542 Signed Impressions: Service Date/Time: Wednesday, November 15, 2017 11:40 - CONCLUSION: 1. The examination demonstrates abnormal marrow signal in the L1 vertebral body. There is no significant fluid within the disc space. There is some enhancement within this following contrast administration however I believe this is more consistent with acute compression fracture rather than infection. There is no significant bony retropulsion. 2. Grade 1 anterolisthesis of L4 relative to L5 with severely degenerated disc. Fredrick Pop MD Lumbar Spine CT 11/15/17 0000 Signed Impressions: Service Date/Time: Wednesday, November 15, 2017 10:53 - CONCLUSION: 1. Stable L4- 5 degenerative disc disease Grade 1 spondylolisthesis secondary to bilateral spondylolysis of L4. 2. New minimal central disc bulge L3-4. 3. 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 José Antonio Tello MD Medical Decision Making Impression and Plan Impression: 1. Imaging findings consistent with L1 compression fracture without significant deformity. 2. L4 5 degenerative disc disease with grade 1 spondylolisthesis 3. Chronic low back pain with recent exacerbation 4. History of EtOH abuse Plan: Findings were discussed with the patient. It is uncertain to what extent the L1 fracture is contributing to his low back symptoms. It is recommended that he postpone any planned surgical procedure pending the healing of the L1 fracture. He initially advised me this morning that he was in quite severe pain and unable to ambulate well. A kyphoplasty was discussed with him as a potential option. However he has ambulated quite well today in the hallway, not appearing significantly uncomfortable, and is moving freely about his room. I recommended he continue conservative treatment. He is to use a TLSO brace when out of bed. Activity precautions and signs and symptoms to watch for have been fully discussed with him. He is in agreement with discharge home with pain medications. He does not wish to consider inpatient rehabilitation. He declined home therapy stating that he can ambulate well. He will be seen back for follow-up in approximately 10-14 days with a lumbar spine x-ray. Jayme Eller MD Nov 17, 2017 13:30
--- NOTE | 2017-11-17 13:35 | HHI.DCPOC ---
Discharge Care Plan Your Health Problems Are: Difficulty with ADL Exercise Tolerance Chronic Pain Goals to Promote Your Health * To prevent worsening of your condition and complications * To maintain your health at the optimal level Directions to Meet Your Goals Take your medications as prescribed Follow your dietary instruction Follow activity as directed Keep your appointments as scheduled Take your immunizations and boosters as scheduled If your symptoms worsen call your PCP, if no PCP go to Urgent Care Center or Emergency Room Smoking is Dangerous to Your Health. Avoid second hand smoke Call the 24-hour hour crisis hotline for domestic abuse at Jayme Eller MD Nov 17, 2017 13:35
--- NOTE | 2017-11-17 13:39 | HHI.DS ---
Discharge Summary Admission Date Nov 15, 2017 at 06:12 Discharge Date: Nov 17, 2017 Admitting Diagnosis Grade 1 L4 5 spondylolisthesis Chronic intractable low back pain Lumbar stenosis (1) Low back pain Diagnosis: Secondary ICD Code: M54.5 - Low back pain (2) Alcohol abuse Diagnosis: Secondary ICD Code: F10.10 - Alcohol abuse, uncomplicated Status: Chronic (3) HTN (hypertension) Diagnosis: Secondary ICD Code: I10 - Essential (primary) hypertension Status: Chronic (4) COPD (chronic obstructive pulmonary disease) Diagnosis: Secondary ICD Code: J44.9 - Chronic obstructive pulmonary disease, unspecified Status: Chronic (5) Lumbar compression fracture Diagnosis: Principal ICD Code: S32.000A - Wedge compression fracture of unspecified lumbar vertebra , initial encounter for closed fracture Brief History 67-year-old male with history of chronic progressive severe low back pain. He states that the back pain started approximately 2 months ago, becoming of constant moderate severity approximately 6 months ago. He was seen for initial neurosurgery office evaluation on 09/07/17. He states that in the past week his pain has become extremely severe. His states that the patient has not been able to get out of bed for the past week, having difficulty even ambulating to the bathroom. He was given MS Contin recently for pain control, pending surgery which was tentatively scheduled for 11/15/2017. This apparently caused some itching and he has been using a back cleaning machine operator to scratch his back and has developed some abrasions and pustules over the past week. His skin is now so tender that he cannot lay on his back or touch his skin. He does not have any fevers or chills. The pain continues to be primarily in the central to right lower lumbar region radiating across the right posterior iliac crest. He denies any pain weakness or numbness in the lower extremities or problems with bowel or bladder dysfunction. He came to the hospital today tentatively for surgery, which has been canceled due exam findings consistent with cellulitis as well as concern for deeper infection including possible discitis given the severity of his pain in the past week. The patient does have a history of significant alcohol abuse, drinking a pint of vodka daily. He has had multiple emergency room visits due to alcohol intoxication and has a history of recent multiple falls. His last visit to the emergency room was 09/22/17. Other medical problems include history of COPD, asthma, AAA, anxiety disorder, CBC/BMP: 11/15/17 0835 11/15/17 0835 Significant Findings Laboratory Tests Test 11/15/17 08:35 11/15/17 14:45 Red Blood Count 4.01 MIL/MM3 (4.50-5.90) Neutrophils (%) (Auto) 70.8 % (16.0-70.0) Monocytes (%) (Auto) 10.6 % (0.0-8.0) Albumin 3.2 GM/DL (3.4-5.0) Aspartate Amino Transf (AST/SGOT) 80 U/L (15-37) Estimat Glomerular Filtration Rate 63 ML/MIN (>89) Urine Opiates Screen POS (NEG) Urine Benzodiazepines Screen POS (NEG) Imaging Last Impressions Lumbar Spine MRI 11/15/17 0845 Signed Impressions: Service Date/Time: Wednesday, November 15, 2017 11:40 - CONCLUSION: 1. The examination demonstrates abnormal marrow signal in the L1 vertebral body. There is no significant fluid within the disc space. There is some enhancement within this following contrast administration however I believe this is more consistent with acute compression fracture rather than infection. There is no significant bony retropulsion. 2. Grade 1 anterolisthesis of L4 relative to L5 with severely degenerated disc. Fredrick Pop MD Lumbar Spine CT 11/15/17 0000 Signed Impressions: Service Date/Time: Wednesday, November 15, 2017 10:53 - CONCLUSION: 1. Stable L4- 5 degenerative disc disease Grade 1 spondylolisthesis secondary to bilateral spondylolysis of L4. 2. New minimal central disc bulge L3-4. 3. 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 José Antonio Tello MD Hospital Course 67-year-old male with history of progressive severe low back pain with radiation to the lateral lumbar region. He was initially scheduled for surgery on 11/16/17, but had developed a rash over the lumbar spine region, potentially related to some itching from MS Contin. He had persistent intractable pain and was admitted for further evaluation, pain control, further imaging due to concern of possible infection. His subsequent MRI has revealed an L1 fracture without significant deformity or retropulsion. He has been ambulating relatively well with physical therapy although complains of 8/10 pain when out of bed. Findings were discussed with patient. Conservative treatment recommended for the L1 fracture without significant deformity. Follow-up appointment 10-14 days with lumbar spine x-ray. Pt Condition on Discharge: Stable Discharge Disposition: Discharge Home Discharge Instructions DIET: Follow Instructions for: As Tolerated, No Restrictions ACTIVITIES You can perform: Weight Bearing As Crow Activities to Avoid: Lifting/Bending, Strenuous Activity ADDITIONAL Activity Instructio: TLSO brace when out of bed. Follow up Referrals: Appointment for Follow Up @ Dr. Jayme Eller Neurosurgery - 2 Weeks with Jayme Eller MD PCP Follow-up - [address] Nelson Continued Medications: Albuterol 18 GM Inh (Ventolin Hfa 18 GM Inh) 90 Mcg/Act Aer 2 PUFF INH Q6H PRN for SHORTNESS OF BREATH, #1 INHALER 0 Refills Alprazolam (Alprazolam) 1 Mg Tab 2 MG PO BID PRN for ANXIETY, TAB 0 Refills Amlodipine (Amlodipine) 5 Mg Tab 5 MG PO DAILY for Blood Pressure Management, #30 TAB 0 Refills B-Complex Vitamins (Vitamin B Complex) 1 Tab 1 TAB PO DAILY Cholestyramine (Cholestyramine) 4 Gm/Dose Powd 4 GM PO BID for Dyslipidemia, #1 CAN 0 Refills 1 level scoopful of powder contains 4 grams of cholestyramine. Fexofenadine (Jessica Allergy) 180 Mg Tab 180 MG PO WEEKLY for Allergy Management, #30 TAB 0 Refills Fluticasone-Salmeterol Inh (Advair Diskus Inh) 250-50 Mcg/Blist Aer 1 PUFF INH BID, #1 INHALER 0 Refills Rinse mouth after use. Gabapentin (Gabapentin) 300 Mg Cap 300 MG PO TID for Pain Management, #90 CAP 1 Refill Hydromorphone (Hydromorphone) 2 Mg Tab 2 MG PO Q8H PRN for PAIN, #60 TAB 0 Refills (This prescription has been renewed) As needed for severe breakthrough pain Lovastatin (Lovastatin) 40 Mg Tab 40 MG PO DAILY for Cholesterol Management, #30 TAB 0 Refills Montelukast (Singulair) 10 Mg Tab 10 MG PO HS, #30 TAB 0 Refills Multiple Vitamin (Multiple Vitamin) 1 Tab 1 TAB PO DAILY for Nutritional Supplement, TAB 0 Refills Potassium Chloride ER (Potassium Chloride ER) 10 Meq Cap 10 MEQ PO BID for Electrolyte Replacement, #60 CAP 0 Refills Ranitidine (Zantac) 150 Mg Tab 150 MG PO BID for Reduce Stomach Acid, #60 TAB 0 Refills Sertraline (Sertraline) 50 Mg Tab 50 MG PO DAILY, #30 TAB 0 Refills Tiotropium Inh (Spiriva Handihaler) 18 Mcg Cap 18 MCG INH DAILY for COPD, #30 CAP 0 Refills 1 capsule = 18 mcg Discontinued Medications: Prednisone (Prednisone) 2.5 Mg Tab 2.5 MG PO BID, TAB 0 Refills Zolpidem (Ambien) 5 Mg Tab 5 MG PO HS PRN for SLEEP for 10 Days, TAB Jayme Eller MD Nov 17, 2017 13:39
[2017-11-17] MEDS ORDERED: HYDR2TAB PO (13:41)
== END 2017-11-17 15:42 | disposition home or self-care (01) ==
LOC: HSDI 06:12 → UNDOADMIN 06:12 → HSDI 06:12 → EDSTATUS 13:00 → HSDI 17:54 → N05B 17:54 → UNDODISIN 11-17 15:42
PROVIDERS: ADMIT Neurological Surgery; ATTEND Neurological Surgery
DX: M43.16 Spondylolisthesis, lumbar region (principal); S32.000A Wedge compression fracture of unspecified lumbar vertebra, initial encounter for closed fracture; M54.5 Low back pain; G89.29 Other chronic pain; F10.129 Alcohol abuse with intoxication, unspecified; I10 Essential (primary) hypertension; J44.9 Chronic obstructive pulmonary disease, unspecified; L25.9 Unspecified contact dermatitis, unspecified cause; Z53.09 Procedure and treatment not carried out because of other contraindication
CPT/HCPCS: 72131; 72158; 80053; 80307; 83735; 85025; 86850; 86900; 86901; 93005; 94150; 96372; 97110; 97163; 97166; 97530; A9579; G0378; G0463; G8987; G8988; G8989; J1170; J1650; J7120; L0200; L0484; 80076; 99211; C9290; J0690; J1580

== ENCOUNTER 2017-12-06 05:39 | Observation (INO) | payer MEDICARE ==
[~2017-12-06] VITALS: Ht 177.8 cm; Wt 102.0 kg
[~2017-12-06 05:39] MED LIST changes: -AMBI5TAB PO; +LEVO500T8 PO; -PRED2.5T PO
[2017-12-06] MEDS ORDERED: LACTATED RINGER'S 1000 ML IV PRN (06:30)
[2017-12-06] MEDS ORDERED: CHLORHEXIDINE GLUCONATE 2 % 1 PACK (2 CLOTHS) TOPICAL PRN (06:30)
[2017-12-06] MEDS ORDERED: METOPROLOL TARTRATE 25 MG TAB PO PRN (06:30)
[2017-12-06] MEDS ORDERED: POVIDONE IODINE 5% (ANTISEPSIS KIT) 4 APPLICATIONS EACH NARE PRN (06:30)
[2017-12-06] MEDS ORDERED: SODIUM CHLORID 0.9% 500 ML IV PRN (06:30)
[2017-12-06] MEDS ORDERED: LACTATED RINGER'S 1000 ML INJ 1,000 ML IV SCH (06:30)
[2017-12-06] MEDS ORDERED: ceFAZolin 1,000 MG/NS 100 ML IV SCH ×2 (06:45)
[2017-12-06] MEDS ORDERED: SPIR25TA PO (06:57)
[2017-12-06] MEDS ORDERED: PRED2.5T PO (07:00)
[2017-12-06 07:04] LABS: PROTHROMBIN TIME - PATIENT 10.3 SEC (9.8-11.6)
[2017-12-06] MEDS ORDERED: LIDOCAINE 1%/EPINEPHrine 1:100,000 SOLN 50 ML VIAL ONE (07:34)
[2017-12-06] MEDS ORDERED: ceFAZolin INJ 1,000 MG VIAL IV ONE ×2 (07:35→12:00)
--- NOTE | 2017-12-06 09:26 | RADRPT ---
EXAM DATE/TIME: 12/06/2017 08:38 [facility] COMPARISON: MRI LUMBAR SPINE W & W/O CONTRAST, November 15, 2017, 11:40. INDICATIONS : Post-op L-1 kyphoplasty. MEDICAL HISTORY : Compression fracture. SURGICAL HISTORY : None. ENCOUNTER: Subsequent ACUITY: 1 day PAIN SCORE: Non-responsive. LOCATION: Lumbar spine. FINDINGS: Status post kyphoplasty L1. Alignment anatomic. Cement within the confines of vertebral body. CONCLUSION: Kyphoplasty L1. Sumit Pop MD FACR on December 06, 2017 at 9:23 Board Certified Radiologist. This report was verified electronically.
[2017-12-06] MEDS ORDERED: MIDAZOLAM HCL 2 MG/2 ML VIAL ONE (09:42)
[2017-12-06] MEDS ORDERED: HYDROmorphone HCL PF 2 MG/ML VIAL ONE (09:54)
[2017-12-06] MEDS ORDERED: *RESP: ALBUTEROL 2.5 MG/3 ML NEB (PRN) PERIprocedural Use ONLY NEB ONE (10:23)
[2017-12-06] MEDS ORDERED: DO NOT ADM ANY ANTICOAGULANT DRUGS PRN (10:30)
--- NOTE | 2017-12-06 10:35 | PD.OP ---
Operative Report Date of Surgery: Dec 06, 2017 Preoperative Diagnosis: (1) Lumbar compression fracture 1. L1 compression fracture with persistent severe low back pain Postoperative Diagnosis: (1) Lumbar compression fracture 1. L1 compression fracture with persistent severe low back pain Procedure: Bilateral L1 kyphoplasty with intraoperative biplanar fluoroscopic imaging Anesthesia: General Surgeon: Jayme Eller Silk Screen Etcher(s): None Operation and Findings: Procedure in detail: Patient was brought him to the operating room and general endotracheal anesthesia induced without difficulty. Lines were established per anesthesia. Patiño catheter was in place ANYI hose and sequential compression devices were in place The patient was placed in prone position on the concentric Kayden table with the side bolsters and all extremities appropriately padded The thoracic and lumbar regions were prepped and draped in a sterile fashion Appropriate timeout procedure was performed without personal present and in agreement AP and lateral C-arm images were used throughout the procedure to determine the kyphoplasty needle placement and to monitor the balloon dilation and cement injection. The procedure was performed at the bilateral L1 level. Using the C-arm imaging and preoperative imaging studies to determine the entry point and trajectory, the kyphoplasty needle was advanced on each side through a small skin incision infiltrated with 1% Xylocaine. The needle was docked at the superior lateral quadrant of the bilateral L1 pedicles and advanced into the vertebral body taking care not to traverse the medial aspect of the pedicle on AP imaging until the tip of the needle was approximately 30% into the vertebral body on lateral imaging. The balloons were then inflated with C-arm monitoring. The cement was mixed and allowed to harden to sufficient consistency for injection. The kyphoplasty balloons were deflated and removed and the cement was injected through the needle cannula on each side using C-arm monitoring. Once the appropriate filling of the vertebral body void was accomplished, the needle cannulas were removed, with the inner stylette used to tamp down the cement into the body as the cannula was withdrawn. Final AP and lateral C-arm images were obtained and felt to be satisfactory. The small incisions were closed with BioGlue and Steri-Strips with a Primapore dressing. The patient was taken to recovery room stable condition. Estimated blood loss was 2 cc No specimen was sent to pathology. Jayme Eller MD Dec 06, 2017 10:35
[2017-12-06] MEDS ORDERED: ALBUTEROL SULFATE 90 MCG/ACT HFA 8 GM INHALER INH PRN (11:00)
[2017-12-06] MEDS ORDERED: ALPRAZolam 1 MG TAB PO PRN (11:00)
[2017-12-06] MEDS ORDERED: HYDROmorphone HCL 2 MG TAB PO PRN (11:00)
[2017-12-06] MEDS ORDERED: NALOXONE HCL 0.4 MG/ML AMP IV PUSH PRN (11:00)
[2017-12-06] MEDS ORDERED: MULTIVITAMIN TAB PO SCH (11:15)
[2017-12-06] MEDS ORDERED: LIDOCAINE HCL 1% PF 5 ML SYRINGE OTHER ONE (12:00)
[2017-12-06] MEDS ORDERED: GLYCOPYRROLATE 1 MG/5 ML SYRINGE IV PUSH ONE (12:00)
[2017-12-06] MEDS ORDERED: ONDANSETRON HCL 4 MG/2 ML VIAL IV PUSH ONE (12:00)
[2017-12-06] MEDS ORDERED: PROPOFOL 200 MG/20 ML AMP IV ONE (12:00)
[2017-12-06] MEDS ORDERED: LACTATED RINGER'S 1000 ML INJ 1,000 ML IV ONE (12:00)
[2017-12-06] MEDS ORDERED: NEOSTIGMINE 5 MG/5 ML SYRINGE IV PUSH ONE (12:00)
[2017-12-06] MEDS ORDERED: ROCURONIUM INJ 50 MG/5 ML SYRINGE IV PUSH ONE (12:00)
[2017-12-06 12:24] VITALS: BP 134/79; PULSE 85; RESP 19; TEMP 96.7; O2SAT 94
--- NOTE | 2017-12-06 12:25 | PD.CONS ---
HPI Service [facility] [place] [facility] Consult Requested By Dr. Eller Reason for Consult COPD, L1 fracture, cirrhosis Primary Care Physician Carlos Alberto Nelson MD Diagnoses: History of Present Illness Patient is a 67-year-old male with history of hypertension, AAA, COPD, osteoarthritis, previous hospitalization for subdural hematoma and craniotomy, and recurrent hospitalizations and ER visits for alcoholism. Patient is S/P Bilateral L1 kyphoplasty with intraoperative biplanar fluoroscopic imaging, Dr. Jayme Eller on 12/06/17. We have been consulted to assist with post-op management of patient's chronic COPD and cirrhosis. Patient reports feeling well at this time. Reports he feels about the same as before surgery. "I don't feel any better." Denies chest pain, SOB, N/V. Offers no other complaints at this time. Review of Systems ROS Limitations: Clinical Condition Musculoskeletal: COMPLAINS OF: Stiffness, Back pain Past Family Social History Past Medical History 1) COPD 2) alcohol these 3) hypertension 4) hyperlipidemia 5) anxiety disorder 6) osteoarthritis 7) chronic low back pain 8) BPH 8) history of abdominal aortic aneurysm Past Surgical History 1) left craniotomy for evacuation of subdural hematoma, December 2015 2) cervical spine surgery 3) multiple orthopedic surgeries including left knee arthroplasty and left wrist surgery unspecified 4) appendectomy Reported Medications Hydromorphone (Hydromorphone HCl) 2 Mg Tab 2 Mg PO Q8H PRN As needed for severe breakthrough pain Gabapentin 300 Mg Cap 300 Mg PO TID Prednisone 2.5 Mg Tab 2.5 Mg PO DAILY Spironolactone 25 Mg Tab 25 Mg PO DAILY Oxygen (O2) Device Liter SRINATH.CANULA PRN PRN Oxygen Concentrator Portable Gaseous 2 L/min via Nasal Canula Continuous For 99 months Vitamin B Complex (B-Complex Vitamins) 1 Tab 1 Tab PO DAILY Ventolin Hfa 18 GM Inh (Albuterol Sulfate) 90 Mcg/Act Aer 2 Puff INH Q6H PRN Sertraline (Sertraline HCl) 50 Mg Tab 50 Mg PO DAILY Potassium Chloride ER (Potassium Chloride) 10 Meq Cap 10 Meq PO BID Multiple Vitamin 1 Tab 1 Tab PO DAILY Cholestyramine 4 Gm/Dose Powd 4 Gm PO BID 1 level scoopful of powder contains 4 grams of cholestyramine. Spiriva Handihaler (Tiotropium Inh) 18 Mcg Cap 18 Mcg INH DAILY 1 capsule = 18 mcg Zantac (Ranitidine HCl) 150 Mg Tab 150 Mg PO BID Singulair (Montelukast Sodium) 10 Mg Tab 10 Mg PO HS Lovastatin 40 Mg Tab 40 Mg PO DAILY Alprazolam 1 Mg Tab 2 Mg PO BID PRN Jessica Allergy (Fexofenadine HCl) 180 Mg Tab 180 Mg PO BID Amlodipine (Amlodipine Besylate) 5 Mg Tab 5 Mg PO DAILY Advair Diskus Inh (Fluticasone-Salmeterol Inh) 250-50 Mcg/Blist Aer 1 Puff INH BID Rinse mouth after use. Allergies: Coded Allergies: aspirin (Verified Allergy, Severe, ANAPHYLACTIC SHOCK, 12/06/17) SHOCK diclofenac (Verified Allergy, Severe, ANAPHYLACTIC SHOCK, 12/06/17) SHOCK etodolac (Verified Allergy, Severe, ANAPHYLACTIC SHOCK, 12/06/17) SHOCK flurbiprofen (Verified Allergy, Severe, ANAPHYLACTIC SHOCK, 12/06/17) SHOCK ibuprofen (Verified Allergy, Severe, ANAPHYLACTIC SHOCK, 12/06/17) SHOCK indomethacin (Verified Allergy, Severe, ANAPHYLACTIC SHOCK, 12/06/17) SHOCK ketoprofen (Verified Allergy, Severe, ANAPHYLACTIC SHOCK, 12/06/17) SHOCK ketorolac (Verified Allergy, Severe, ANAPHYLACTIC SHOCK, 12/06/17) SHOCK naproxen (Verified Allergy, Severe, ANAPHYLACTIC SHOCK, 12/06/17) SHOCK oxaprozin (Verified Allergy, Severe, ANAPHYLACTIC SHOCK, 12/06/17) SHOCK lisinopril (Verified Allergy, Mild, "MAKES MY FACE SWELL UP AND PREVENTS ME FROM BREATHING", 12/06/17) Family History Noncontributory Social History - Heavy alcohol use, 1 pint of vodka daily. Per patient he quit drinking 5-6 weeks ago - Current smoker - No illicit street drugs Physical Exam Vital Signs Vital Signs Date Time Temp Pulse Resp B/P (MAP) Pulse Ox O2 Delivery O2 Flow Rate FiO2 12/06/17 11:15 87 15 123/73 (90) 92 Nasal Cannula 3 12/06/17 10:24 15 12/06/17 10:00 84 14 138/80 (99) 93 Nasal Cannula 3 12/06/17 09:45 81 14 134/80 (98) 92 Nasal Cannula 3 12/06/17 09:30 97.8 94 12 140/81 (100) 95 Nasal Cannula 4 12/06/17 06:45 98.8 85 18 138/94 (109) 92 Physical Exam GENERAL: This is a well-nourished, well-developed patient, groggy post anesthesia but in no apparent distress. SKIN: No rashes, ecchymoses or lesions. Cool and dry. HEAD: Atraumatic. Normocephalic. No temporal or scalp tenderness. EYES: Extraocular motions intact. No scleral icterus. No injection or drainage. RESPIRATORY: Clear to auscultation. Breath sounds equal bilaterally. GASTROINTESTINAL: Abdomen soft, non-tender, nondistended. MUSCULOSKELETAL: Extremities without clubbing, cyanosis, or edema. No joint tenderness, effusion, or edema noted. No calf tenderness. Negative Homans sign bilaterally. NEUROLOGICAL: Awake and alert. No focal deficits. Motor and sensory grossly within normal limits. 4-5 out of 5 muscle strength in all muscle groups. Normal speech. Laboratory Laboratory Tests Test 12/06/17 06:40 Prothrombin Time 10.3 Prothromb Time International Ratio 1.0 Activated Partial Thromboplast Time 25.2 Imaging Last Impressions Lumbar Spine X-Ray 12/06/17 0000 Signed Impressions: Service Date/Time: Wednesday, December 06, 2017 08:38 - CONCLUSION: Kyphoplasty L1. Sumit Pop MD FACR Assessment and Plan Problem List: (1) Lumbar compression fracture ICD Codes: S32.000A - Wedge compression fracture of unspecified lumbar vertebra , initial encounter for closed fracture Status: Acute Plan: Lumbar compression fracture S/P Bilateral L1 kyphoplasty with intraoperative biplanar fluoroscopic imaging, Dr. Jayme Eller on 12/06/17. We have been consulted to assist with post-op management of patient's chronic COPD and cirrhosis. - pt has chronic LBP - Pt has had worsening LBP for the last 6 months Alcohol abuse - Patient has had recurrent hospitalizations and ER visits due to alcohol intoxication - Patient is at risk for delirium tremens - Per patient he quit drinking 5-6 weeks ago - Ativan PRN by [facility] protocol - mvi, thiamine, folate. HTN (hypertension) - Pt takes Norvasc 5mg po daily at home - observe BP readings COPD (chronic obstructive pulmonary disease) - continue symbicort, spiriva - duonebs prn (2) COPD (chronic obstructive pulmonary disease) ICD Codes: J44.9 - Chronic obstructive pulmonary disease, unspecified Status: Chronic (3) ETOH abuse ICD Codes: F10.10 - Alcohol abuse, uncomplicated Status: Chronic Assessment and Plan Patient examined. Assessment and plan formulated with Cheyenne Childers PA-C. I agree with the above. s/p L1 kyphoplasty for L1 comp fx. pain meds ordered. cont home meds. denies etoh x 5 weeks. Cheyenne Childers Dec 06, 2017 12:25 Ortiz Lewis MD Dec 06, 2017 13:14
[2017-12-06] MEDS ORDERED: LORazepam 2 MG TAB PO PRN (12:45)
[2017-12-06] MEDS ORDERED: HALOPERIDOL LACTATE 5 MG/ML AMP IM PRN (12:45)
[2017-12-06] MEDS ORDERED: LORazepam 2 MG/ML VIAL IV PUSH PRN ×4 (12:45)
[2017-12-06] MEDS ORDERED: FLUMAZENIL 0.5 MG/5 ML VIAL IV PUSH PRN (12:45)
[2017-12-06] MEDS ORDERED: LORazepam 1 MG TAB PO PRN (12:45)
[2017-12-06] MEDS: GABAPENTIN 300 MG CAP PO SCH ×2 (12:55→16:36)
[2017-12-06] MEDS: HYDROmorphone HCL 4 MG TAB PO PRN ×2 (12:56→18:37)
[2017-12-06 16:41] VITALS: BP 131/78; PULSE 83; RESP 16; TEMP 97.1; O2SAT 95
[2017-12-06] MEDS: LORATADINE 10 MG TAB PO SCH (18:37)
[2017-12-06 20:05] VITALS: BP 125/86; PULSE 86; RESP 18; TEMP 98.5; O2SAT 98
[2017-12-06] MEDS ORDERED: NON-FORMULARY DRUG (Fluticasone-Salmeterol Inh (Advair Diskus Inh) 1 PUFF) INH SCH (21:00)
[2017-12-06] MEDS: FAMOTIDINE 20 MG TAB PO SCH (21:38)
[2017-12-06] MEDS: POTASSIUM CHLORIDE 10 MEQ CAP PO SCH (21:39)
[2017-12-06] MEDS: MONTELUKAST SODIUM 10 MG TAB PO SCH (21:39)
[2017-12-06] MEDS: CHOLESTYRAMINE 4 GM PACKET PO SCH (21:39)
[2017-12-06] MEDS: BUDESONIDE-FORMOTEROL 160/4.5 MCG INHALER INH SCH (21:54)
[2017-12-06 23:50] VITALS: BP 134/86; PULSE 76; RESP 18; TEMP 97.4; O2SAT 95
[2017-12-07] VITALS (7 sets, daily range): BP systolic 123–144; BP diastolic 74–84; PULSE 72–89; RESP 16–19; TEMP 96.8–98.5; O2SAT 94–99
[2017-12-07 07:58] LABS: AUTOMATED NEUTROPHIL # 3.2 TH/MM3 (1.8-7.7); BASOPHIL % 0.4 % (0.0-2.0); EOSINOPHIL # 0.2 TH/MM3 (0-0.4); EOSINOPHIL % 3.7 % (0.0-4.0); HEMATOCRIT 35.8 % (39.0-51.0); HEMOGLOBIN 12.2 GM/DL (13.0-17.0); LYMPH % 24.8 % (9.0-44.0); LYMPHOCYTE # 1.3 TH/MM3 (1.0-4.8); MEAN CELL VOLUME 99.2 FL (80.0-100.0); MEAN CORPUSCULAR HEMOGLOBIN 33.7 PG (27.0-34.0); MEAN CORPUSCULAR HGB CONC 33.9 % (32.0-36.0); MEAN PLATELET VOLUME 11.3 FL (7.0-11.0); MONO % 10.3 % (0.0-8.0); MONOCYTE # 0.5 TH/MM3 (0-0.9); NEUT % 60.8 % (16.0-70.0); PLATELET COUNT 136 TH/MM3 (150-450); RED BLOOD COUNT 3.61 MIL/MM3 (4.50-5.90); RED CELL DISTRIBUTION WIDTH 15.7 % (11.6-17.2); WHITE BLOOD COUNT 5.3 TH/MM3 (4.0-11.0)
--- NOTE | 2017-12-07 08:03 | MB ---
cc: EULALIA COLON DATE OF CONSULTATION 12/06/[address] Jayme Eller REASON FOR CONSULTATION COPD management HISTORY OF PRESENT ILLNESS Mr. Buck is a 67-year-old male with a history of COPD, obstructive sleep apnea who is nasal oxygen dependent. He has some back pain and patient was seen by Dr. Jayme Eller. He was found to have an L1 compression fracture with persistence of severe back pain. He underwent bilateral L1 kyphoplasty with intraoperative biplanar fluoroscopy imaging. Postop, he is doing well. He is on 2 liters nasal cannula. He has mild shortness of breath with no wheezing or chest pain. PAST MEDICAL HISTORY Significant for a history of: 1. COPD, uses oxygen off and on. 2. History of sleep apnea. 3. Hypertension 4. Osteoarthritis 5. Chronic back pain 6. History of abdominal aneurysm. 7. History of left craniotomy for evacuation of subdural hematoma. 8. History of cervical spine surgery. 9. History of appendectomy. MEDICATIONS He is currently takin. Amlodipine 5 mg a day. 2. Zoloft 50 mg a day. 3. Spironolactone 25 mg a day. 4. Spiriva 18 mcg a day. 5. Prednisone 2.5 a day for long-term use. 6. Thiamine 100 mg a day 7. Questran 4 gram packets twice a day 8. Singulair 10 mg a day. 9. Symbicort 160/4.5 two puffs twice a day 10. Gabapentin 300 mg three times a day 11. Claritin 10 mg a day ALLERGIES ASPIRIN, DICLOFENAC, NSAIDS AND HIGH DOSE PREDNISONE. SOCIAL HISTORY He has a history of smoking in the past. He used to drink. Denies any drug use. He worked in law enforcement. FAMILY HISTORY He has two children. His walked away from him two years ago, now he has a lady friend. REVIEW OF SYSTEMS He is able to walk a short distance. No DVT or pulmonary embolism. No malignancy. 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 PHYSICAL EXAMINATION An elderly male not in acute exacerbation. VITAL SIGNS: Blood pressure 131/78, heart 80, respirations 16, temperature 97.1. HEENT: Examination pupils are equal and reactive to light. He has bilateral cataract surgery done. Oral mucosa and nasal mucosa are normal. NECK: Supple. JVP not raised. CHEST: Equal bilateral, few rhonchi. CARDIOVASCULAR: S1 and S2 normal. ABDOMEN: Benign. EXTREMITIES: No edema. IMPRESSION 1. COPD, he is oxygen dependent. 2. History of alcohol use. 3. Chronic back pain status post L1 kyphoplasty. 4. Obstructive sleep apnea 5. Hypertension PLAN I discussed with the patient to supplement his oxygen. Continue Symbicort twice a day and Spiriva once a day, prednisone 2.5 mg a day, Singulair 10 mg a day. The patient is known to Dr. Guzman who will follow this patient tomorrow. Thank you Dr. Eller for this consultation. MD WINSTON Mendoza/ANABELLE /7:12 PM /7:44 AM
[2017-12-07 08:04] LABS: PROTHROMBIN TIME - PATIENT 10.1 SEC (9.8-11.6)
[2017-12-07 08:16] LABS: BICARBONATE 32.5 MEQ/L (21.0-32.0); CALCIUM 8.9 MG/DL (8.5-10.1); CREATININE 0.91 MG/DL (0.60-1.30)
[2017-12-07] MEDS: POTASSIUM CHLORIDE 10 MEQ CAP PO SCH ×2 (09:19→23:10)
[2017-12-07] MEDS: MULTIVITAMINS/MINERALS THERAPEUTIC TAB PO SCH (09:19)
[2017-12-07] MEDS: predniSONE 5 MG TAB PO SCH (09:20)
[2017-12-07] MEDS: SERTRALINE HCL 50 MG TAB PO SCH (09:20)
[2017-12-07] MEDS: VITAMIN B CMPLX/VITC/FOLIC AC CAP PO SCH (09:20)
[2017-12-07] MEDS: GABAPENTIN 300 MG CAP PO SCH ×3 (09:20→18:00)
[2017-12-07] MEDS: LORATADINE 10 MG TAB PO SCH (09:20)
[2017-12-07] MEDS: TIOTROPIUM BROMIDE 18 MCG INH INH SCH (09:20)
[2017-12-07] MEDS: THIAMINE HCL 100 MG TAB PO SCH (09:20)
[2017-12-07] MEDS: FOLIC ACID 1 MG TAB PO SCH (09:20)
[2017-12-07] MEDS: BUDESONIDE-FORMOTEROL 160/4.5 MCG INHALER INH SCH ×2 (09:20→23:18)
[2017-12-07] MEDS: HYDROmorphone HCL 4 MG TAB PO PRN ×2 (09:21→15:07)
[2017-12-07] MEDS: amLODIPine BESYLATE 5 MG TAB PO SCH (09:21)
[2017-12-07] MEDS: CHOLESTYRAMINE 4 GM PACKET PO SCH ×2 (09:21→23:10)
[2017-12-07] MEDS: SPIRONOLACTONE 25 MG TAB PO SCH (09:21)
[2017-12-07] MEDS: FAMOTIDINE 20 MG TAB PO SCH ×2 (09:21→23:10)
--- NOTE | 2017-12-07 11:44 | HHI.NSPN ---
(Joseph Bartholomew) History Chief Complaint: Low back pain (Joseph Bartholomew) Interval History 12/06: The patient presented to [facility] to have a bilateral L1 kyphoplasty due to a L1 compression fracture with persistent severe low back pain. Post-operatively the patient was transferred to a regular med/surg floor. 12/07: When seen the patient is awake and alert in bed watching TV this morning. He states he is doing good but continues to have the low back pain. He denies any pain, numbness, tingling or weakness to the extremities. He denies any chest pain, worsening shortness of breath, abdominal pain or difficulty voiding. He further states that "everything else is normal." Dr Eller spoke with Pulmonary Medicine who had evaluated the patient and felt that he was able to undergo further surgery on . (Joseph Bartholomew) Exam Results 12/05/17 12/05/17 12/06/17 12/06/17 12/07/17 12/07/17 06:00 18:00 06:00 18:00 06:00 18:00 Intake Total 1480 ml 960 ml Output Total 677 ml 600 ml Balance 803 ml 360 ml Intake Oral 480 ml 960 ml Other 1000 ml Output Urine Total 675 ml 600 ml Estimated Blood Loss 2 ml # Voids 3 # Bowel Movements 0 Vital Signs Date Time Temp Pulse Resp B/P (MAP) Pulse Ox O2 Delivery O2 Flow Rate FiO2 12/07/17 08:00 96.9 72 16 129/81 (97) 95 12/07/17 04:39 97.0 83 18 131/74 (93) 97 12/06/17 23:50 97.4 76 18 134/86 (102) 95 12/06/17 20:05 98.5 86 18 125/86 (99) 98 12/06/17 17:56 Nasal Cannula 2.00 12/06/17 16:41 97.1 83 16 131/78 (95) 95 12/06/17 12:24 96.7 85 19 134/79 (97) 94 12/06/17 12:00 97.6 77 16 120/73 (89) 93 Nasal Cannula 3 12/06/17 11:30 78 15 120/74 (89) 92 Nasal Cannula 3 12/06/17 11:15 87 15 123/73 (90) 92 Nasal Cannula 3 12/06/17 11:00 97.5 86 15 121/72 (88) 91 Nasal Cannula 3 12/06/17 10:45 85 15 124/70 (88) 90 Nasal Cannula 2 12/06/17 10:30 84 15 121/69 (86) 88 Nasal Cannula 2 12/06/17 10:24 15 12/06/17 10:15 81 14 133/78 (96) 94 Nasal Cannula 3 12/06/17 10:00 84 14 138/80 (99) 93 Nasal Cannula 3 12/06/17 09:45 81 14 134/80 (98) 92 Nasal Cannula 3 12/06/17 09:30 97.8 94 12 140/81 (100) 95 Nasal Cannula 4 12/06/17 06:45 98.8 85 18 138/94 (109) 92 (Joseph Bartholomew) Physical Examination GENERAL: Awake & alert in bed watching TV. He readily interacts. His affect is normal. He appears comfortable and not in any distress. CARDIOVASCULAR: S1S2 w/RRR w/o M/G/R. RESPIRATORY: CTAB w/o W/R/R, equal excusion, nonlaboured, on NC. GASTROINTESTINAL: Abdomen rotund but soft, nontender,positive bowel sounds. MUSCULOSKELETAL: LOERA spontaneously & to command w/o difficulty. No evident clubbing or deformity. Mildly TTP to the thoracic & upper lumbar spines but TTP to the lower lumbar & upper sacral spines. The lateral surgical incisions at L1 minimally TTP w/steri-strips dry & intact w/o any drainage, erythema or streaking noted. NEUROLOGICAL: AAOx3. Speech clear & appropriate. Follows commands w/o difficulty. Sensation is intact to light touch to all extremities. Muscle strength is 5/5 to all major flexion & extension muscle groups to the extremities. (Joseph Bartholomew) Lab, Micro, Other Results Recent Impressions Lumbar Spine X-Ray 12/06/17 0000 Signed Impressions: Service Date/Time: Wednesday, December 06, 2017 08:38 - CONCLUSION: Kyphoplasty L1. Sumit Pop MD FACR Laboratory Tests Test 12/06/17 06:40 12/07/17 06:17 Prothrombin Time 10.3 SEC 10.1 SEC Prothromb Time International Ratio 1.0 RATIO 1.0 RATIO Activated Partial Thromboplast Time 25.2 SEC 24.7 SEC White Blood Count 5.3 TH/MM3 Red Blood Count 3.61 MIL/MM3 Hemoglobin 12.2 GM/DL Hematocrit 35.8 % Mean Corpuscular Volume 99.2 FL Mean Corpuscular Hemoglobin 33.7 PG Mean Corpuscular Hemoglobin Concent 33.9 % Red Cell Distribution Width 15.7 % Platelet Count 136 TH/MM3 Mean Platelet Volume 11.3 FL Neutrophils (%) (Auto) 60.8 % Lymphocytes (%) (Auto) 24.8 % Monocytes (%) (Auto) 10.3 % Eosinophils (%) (Auto) 3.7 % Basophils (%) (Auto) 0.4 % Neutrophils # (Auto) 3.2 TH/MM3 Lymphocytes # (Auto) 1.3 TH/MM3 Monocytes # (Auto) 0.5 TH/MM3 Eosinophils # (Auto) 0.2 TH/MM3 Basophils # (Auto) 0.0 TH/MM3 CBC Comment DIFF FINAL Differential Comment Blood Urea Nitrogen 15 MG/DL Creatinine 0.91 MG/DL Random Glucose 106 MG/DL Calcium Level 8.9 MG/DL Sodium Level 140 MEQ/L Potassium Level 4.1 MEQ/L Chloride Level 103 MEQ/L Carbon Dioxide Level 32.5 MEQ/L Anion Gap 5 MEQ/L Estimat Glomerular Filtration Rate 83 ML/MIN (Joseph Bartholomew) Medical Decision Making Impression and Plan Impression: L1 compression fracture with persistent severe low back pain The patient is doing well post-operatively and remains neurologically intact. He continues to have the lower back pain w/o any change to it. The surgical incisions are w/o any complications. POD #1 () s/p : Bilateral L1 kyphoplasty with intraoperative biplanar fluoroscopic imaging Plan: Medical management per Hospitalist. Neuro checks. Mobilise patient w/assistance. Regular diet. Patient cleared by Pulmonary Medicine for further surgery. Will discharge patient home today and bring him back in the morning of for the second stage of his surgery. (Joseph Bartholomew) Attending Statement The exam, history, and the medical decision-making described in the above note were completed with the assistance of the mid-level provider. I reviewed and agree with the findings presented. I attest that I had a [id number] encounter with the patient on the same day, and personally performed and documented my assessment and findings in the medical record. Mr. Buck states that he has not been out of bed yet today. He continues to complain of significant low back pain with radiation to the lateral gluteal region and thigh. Sensation remains mostly intact to light touch in the upper and lower extremities with mild paresthesias in the feet. Strength is within normal limits and major flexion and extension groups in the upper and lower extremities with complaint of low back with proximal lower extremity motor testing. Mr. Buck does not feel that his pain has been altered thus far from the kyphoplasty. I explained to him that it is difficult to accurately determine to what degree his pain is related to the L1 fracture versus the L4-5 spondylolisthesis. He has had pain for a couple of years, much worse in the past few months, and this chronic severe progressive pain is unlikely to be primarily related to the L1 fracture. He would like to proceed with definitive surgery for the L4 5 spondylolisthesis , since more conservative treatment measures have failed. I explained to him that the L4-5 spondylolisthesis with canal stenosis and nerve compression is an entirely different problem from the L1 fracture, and would require a totally separate surgical procedure, unrelated to the L1 fracture and requiring a different incision and surgical approach. The procedure of L4-5 decompressive semi-laminectomy, discectomy, interbody fusion,PEEK cage, allograft and autograft bone, posterior fusion with instrumentation has been previously explained, and discussed again today. We will request insurance authorization for the surgery, which can tentatively be performed on 12/09/2017. He has been seen by pulmonary medicine as well as [facility] during this hospitalization, and cleared for further surgery. (Jayme Eller MD) Joseph Bartholomew Dec 07, 2017 11:44 Jayme Eller MD Dec 07, 2017 15:38
[2017-12-07] MEDS: MONTELUKAST SODIUM 10 MG TAB PO SCH (23:09)
[2017-12-08 04:15] VITALS: BP 127/82; PULSE 70; RESP 18; TEMP 96.7; O2SAT 96
[2017-12-08] MEDS: HYDROmorphone HCL 4 MG TAB PO PRN ×3 (04:17→13:47)
[2017-12-08 04:42] VITALS: O2SAT 95
[2017-12-08 08:00] VITALS: BP 108/73; PULSE 68; RESP 18; TEMP 96.8; O2SAT 96
[2017-12-08] MEDS: amLODIPine BESYLATE 5 MG TAB PO SCH (08:45)
[2017-12-08] MEDS: predniSONE 5 MG TAB PO SCH (08:46)
[2017-12-08] MEDS: VITAMIN B CMPLX/VITC/FOLIC AC CAP PO SCH (08:47)
[2017-12-08] MEDS: FAMOTIDINE 20 MG TAB PO SCH (08:47)
[2017-12-08] MEDS: SERTRALINE HCL 50 MG TAB PO SCH (08:48)
[2017-12-08] MEDS: LORATADINE 10 MG TAB PO SCH (08:48)
[2017-12-08] MEDS: GABAPENTIN 300 MG CAP PO SCH ×2 (08:48→13:00)
[2017-12-08] MEDS: SPIRONOLACTONE 25 MG TAB PO SCH (08:48)
[2017-12-08] MEDS: MULTIVITAMINS/MINERALS THERAPEUTIC TAB PO SCH (08:48)
[2017-12-08] MEDS: THIAMINE HCL 100 MG TAB PO SCH (08:48)
[2017-12-08] MEDS: FOLIC ACID 1 MG TAB PO SCH (08:49)
[2017-12-08] MEDS: POTASSIUM CHLORIDE 10 MEQ CAP PO SCH (08:49)
[2017-12-08] MEDS: CHOLESTYRAMINE 4 GM PACKET PO SCH (08:49)
[2017-12-08] MEDS: BUDESONIDE-FORMOTEROL 160/4.5 MCG INHALER INH SCH (08:50)
[2017-12-08] MEDS: TIOTROPIUM BROMIDE 18 MCG INH INH SCH (09:00)
[2017-12-08 11:49] VITALS: BP 124/74; PULSE 75; RESP 18; TEMP 96.9; O2SAT 95
--- NOTE | 2017-12-08 11:54 | HHI.NSPN ---
History Chief Complaint: Lower lumbar back pain Interval History 12/06: The patient presented to [facility] to have a bilateral L1 kyphoplasty due to a L1 compression fracture with persistent severe low back pain. Post-operatively the patient was transferred to a regular med/surg floor. 12/07: When seen the patient is awake and alert in bed watching TV this morning. He states he is doing good but continues to have the low back pain. He denies any pain, numbness, tingling or weakness to the extremities. He denies any chest pain, worsening shortness of breath, abdominal pain or difficulty voiding. He further states that "everything else is normal." Dr Eller spoke with Pulmonary Medicine who had evaluated the patient and felt that he was able to undergo further surgery on . 12/08: This morning the patient is awake and alert in bed watching TV. He says he is doing good. He reports that his pain to the surgical area is better but the lower lumbar is giving him "trouble." He has no pain, numbness, tingling or weakness to the extremities. He reports that when Physical Therapy came in he was able to walk from his room to the end of the lyons and down to the other end and back to his room without any assistance from staff or a walker. His examination is the same as yesterday. Exam Results 12/06/17 12/06/17 12/07/17 12/07/17 12/08/17 12/08/17 06:00 18:00 06:00 18:00 06:00 18:00 Intake Total 1480 ml 960 ml 720 ml 1080 ml Output Total 677 ml 600 ml 1650 ml 1100 ml Balance 803 ml 360 ml -930 ml -20 ml Intake Oral 480 ml 960 ml 720 ml 1080 ml Other 1000 ml Output Urine Total 675 ml 600 ml 1650 ml 1100 ml Estimated Blood Loss 2 ml # Voids 3 2 # Bowel Movements 0 0 1 Vital Signs Date Time Temp Pulse Resp B/P (MAP) Pulse Ox O2 Delivery O2 Flow Rate FiO2 12/08/17 08:00 96.8 68 18 108/73 (85) 96 12/08/17 04:42 95 Nasal Cannula 2.00 12/08/17 04:15 96.7 70 18 127/82 (97) 96 12/07/17 23:12 97.7 84 18 139/82 (101) 95 12/07/17 20:05 98.5 89 19 144/83 (103) 96 12/07/17 16:00 96.8 75 18 123/84 (97) 94 12/07/17 12:00 98.0 77 18 141/80 (100) 94 12/07/17 08:35 99 Nasal Cannula 2.00 12/07/17 08:00 96.9 72 16 129/81 (97) 95 12/07/17 04:39 97.0 83 18 131/74 (93) 97 12/06/17 23:50 97.4 76 18 134/86 (102) 95 12/06/17 20:05 98.5 86 18 125/86 (99) 98 12/06/17 17:56 Nasal Cannula 2.00 12/06/17 16:41 97.1 83 16 131/78 (95) 95 12/06/17 12:24 96.7 85 19 134/79 (97) 94 12/06/17 12:00 97.6 77 16 120/73 (89) 93 Nasal Cannula 3 12/06/17 11:30 78 15 120/74 (89) 92 Nasal Cannula 3 12/06/17 11:15 87 15 123/73 (90) 92 Nasal Cannula 3 12/06/17 11:00 97.5 86 15 121/72 (88) 91 Nasal Cannula 3 12/06/17 10:45 85 15 124/70 (88) 90 Nasal Cannula 2 12/06/17 10:30 84 15 121/69 (86) 88 Nasal Cannula 2 12/06/17 10:24 15 12/06/17 10:15 81 14 133/78 (96) 94 Nasal Cannula 3 12/06/17 10:00 84 14 138/80 (99) 93 Nasal Cannula 3 12/06/17 09:45 81 14 134/80 (98) 92 Nasal Cannula 3 12/06/17 09:30 97.8 94 12 140/81 (100) 95 Nasal Cannula 4 12/06/17 06:45 98.8 85 18 138/94 (109) 92 Physical Examination GENERAL: Awake & alert in bed watching TV. He readily interacts. His affect is normal. He appears comfortable and not in any distress. MUSCULOSKELETAL: LOERA spontaneously & to command w/o difficulty. No evident clubbing or deformity. Mildly TTP to the thoracic & upper lumbar spines but TTP to the lower lumbar & upper sacral spines. The lateral surgical incisions at L1 minimally TTP w/steri-strips dry & intact w/o any drainage, erythema or streaking noted. NEUROLOGICAL: AAOx3. Speech clear & appropriate. Follows commands w/o difficulty. Sensation is intact to light touch to all extremities. Muscle strength is 5/5 to all major flexion & extension muscle groups to the extremities. Lab, Micro, Other Results Recent Impressions Lumbar Spine X-Ray 12/06/17 0000 Signed Impressions: Service Date/Time: Wednesday, December 06, 2017 08:38 - CONCLUSION: Kyphoplasty L1. Sumit Pop MD FACR Laboratory Tests Test 12/06/17 06:40 12/07/17 06:17 Prothrombin Time 10.3 SEC 10.1 SEC Prothromb Time International Ratio 1.0 RATIO 1.0 RATIO Activated Partial Thromboplast Time 25.2 SEC 24.7 SEC White Blood Count 5.3 TH/MM3 Red Blood Count 3.61 MIL/MM3 Hemoglobin 12.2 GM/DL Hematocrit 35.8 % Mean Corpuscular Volume 99.2 FL Mean Corpuscular Hemoglobin 33.7 PG Mean Corpuscular Hemoglobin Concent 33.9 % Red Cell Distribution Width 15.7 % Platelet Count 136 TH/MM3 Mean Platelet Volume 11.3 FL Neutrophils (%) (Auto) 60.8 % Lymphocytes (%) (Auto) 24.8 % Monocytes (%) (Auto) 10.3 % Eosinophils (%) (Auto) 3.7 % Basophils (%) (Auto) 0.4 % Neutrophils # (Auto) 3.2 TH/MM3 Lymphocytes # (Auto) 1.3 TH/MM3 Monocytes # (Auto) 0.5 TH/MM3 Eosinophils # (Auto) 0.2 TH/MM3 Basophils # (Auto) 0.0 TH/MM3 CBC Comment DIFF FINAL Differential Comment Blood Urea Nitrogen 15 MG/DL Creatinine 0.91 MG/DL Random Glucose 106 MG/DL Calcium Level 8.9 MG/DL Sodium Level 140 MEQ/L Potassium Level 4.1 MEQ/L Chloride Level 103 MEQ/L Carbon Dioxide Level 32.5 MEQ/L Anion Gap 5 MEQ/L Estimat Glomerular Filtration Rate 83 ML/MIN Medical Decision Making Impression and Plan Impression: L1 compression fracture with persistent severe low back pain The patient continues to do well post-operatively and remains neurologically intact. He continues to have the lower back pain w/o any change to it. The surgical incisions are w/o any complications. POD #2 () s/p : Bilateral L1 kyphoplasty with intraoperative biplanar fluoroscopic imaging Plan: Medical management per Hospitalist. Neuro checks. Mobilise patient w/assistance. Regular diet. Patient cleared by Pulmonary Medicine for further surgery. Plan is to due second surgery to L4-5 tomorrow, . NPO after midnight except for meds. ADDENDUM at 1411: Patient will be discharged home. Surgery to be rescheduled due to surgeon becoming ill. Discussed with patient who verbalised his understanding. The office will call him with the new surgery date. Joseph Lr Dec 08, 2017 11:54
--- NOTE | 2017-12-08 14:22 | HHI.DCPOC ---
Discharge Care Plan Diagnosis: (1) Lumbar compression fracture (2) Low back pain (3) S/P kyphoplasty Your Health Problems Are: Incision/Drains Leg Swelling Exercise Tolerance Loss of Movements Shortness of Breath Goals to Promote Your Health * To prevent worsening of your condition and complications * To maintain your health at the optimal level No bending over, lifting, reaching, pulling, twisting or other strenuous activity. Wear the TLSO brace when out of bed. Take the pain medication as directed. Avoid any medications with aspirin or a NSAID in it (e.g., ibuprofen, Advil, Motrin, naproxen, Naprosyn, etc.). Do not take any statin medications, vitamin E or fish oil. Do not shower or take a bath. You may shower on and let the water run over the surgical incisions. Let the steri-strips fall off on their own. Directions to Meet Your Goals Take your medications as prescribed Follow your dietary instruction Follow activity as directed No bending over, lifting, reaching, pulling, twisting or other strenuous activity. Wear the TLSO brace when out of bed. Take the pain medication as directed. Avoid any medications with aspirin or a NSAID in it (e.g., ibuprofen, Advil, Motrin, naproxen, Naprosyn, etc.). Do not take any statin medications, vitamin E or fish oil. Do not shower or take a bath. You may shower on and let the water run over the surgical incisions. Let the steri-strips fall off on their own. Keep your appointments as scheduled Take your immunizations and boosters as scheduled If your symptoms worsen call your PCP, if no PCP go to Urgent Care Center or Emergency Room Smoking is Dangerous to Your Health. Avoid second hand smoke Call the 24-hour hour crisis hotline for domestic abuse at Joseph Bartholomew Dec 08, 2017 14:21
--- NOTE | 2017-12-08 14:27 | HHI.DS ---
Discharge Summary Admission Date Dec 06, 2017 at 10:50 Discharge Date: Dec 08, 2017 Admitting Diagnosis (1) Lumbar compression fracture Diagnosis: Principal ICD Code: S32.000A - Wedge compression fracture of unspecified lumbar vertebra , initial encounter for closed fracture Status: Acute (2) Low back pain Diagnosis: Secondary ICD Code: M54.5 - Low back pain (3) S/P kyphoplasty Diagnosis: Secondary ICD Code: Z98.890 - Other specified postprocedural states (4) COPD (chronic obstructive pulmonary disease) Diagnosis: Secondary ICD Code: J44.9 - Chronic obstructive pulmonary disease, unspecified Status: Chronic (5) ETOH abuse Diagnosis: Secondary ICD Code: F10.10 - Alcohol abuse, uncomplicated Status: Chronic Procedures : Bilateral L1 kyphoplasty with intraoperative biplanar fluoroscopic imaging CBC/BMP: 12/07/17 0617 12/07/17 0617 Significant Findings Laboratory Tests Test 12/06/17 06:40 12/07/17 06:17 Red Blood Count 3.61 MIL/MM3 (4.50-5.90) Hemoglobin 12.2 GM/DL (13.0-17.0) Hematocrit 35.8 % (39.0-51.0) Platelet Count 136 TH/MM3 (150-450) Mean Platelet Volume 11.3 FL (7.0-11.0) Monocytes (%) (Auto) 10.3 % (0.0-8.0) Carbon Dioxide Level 32.5 MEQ/L (21.0-32.0) Estimat Glomerular Filtration Rate 83 ML/MIN (>89) Hospital Course 12/06: The patient presented to [facility] to have a bilateral L1 kyphoplasty due to a L1 compression fracture with persistent severe low back pain. Post-operatively the patient was transferred to a regular med/surg floor. 12/07: When seen the patient is awake and alert in bed watching TV this morning. He states he is doing good but continues to have the low back pain. He denies any pain, numbness, tingling or weakness to the extremities. He denies any chest pain, worsening shortness of breath, abdominal pain or difficulty voiding. He further states that "everything else is normal." Dr Eller spoke with Pulmonary Medicine who had evaluated the patient and felt that he was able to undergo further surgery on . 12/08: This morning the patient is awake and alert in bed watching TV. He says he is doing good. He reports that his pain to the surgical area is better but the lower lumbar is giving him "trouble." He has no pain, numbness, tingling or weakness to the extremities. He reports that when Physical Therapy came in he was able to walk from his room to the end of the lyons and down to the other end and back to his room without any assistance from staff or a walker. His examination is the same as yesterday. Pt Condition on Discharge: Good Discharge Disposition: Discharge Home Discharge Instructions DIET: Follow Instructions for: As Tolerated, No Restrictions ACTIVITIES You can perform: Weight Bearing As Crow Activities to Avoid: Lifting/Bending, Strenuous Activity, Bathing, Shower ADDITIONAL Activity Instructio: No bending over, lifting, reaching, pulling, twisting or other strenuous activity. Wear the TLSO brace when out of bed. Do not shower or take a bath. You may shower on and let the water run over the surgical incisions. Additional Information Take the pain medication as directed. Avoid any medications with aspirin or a NSAID in it (e.g., ibuprofen, Advil, Motrin, naproxen, Naprosyn, etc.). Do not take any statin medications, vitamin E or fish oil. Do not shower or take a bath. You may shower on and let the water run over the surgical incisions. Let the steri-strips fall off on their own. Joseph Bartholomew Dec 08, 2017 14:27
[2017-12-08] MEDS ORDERED: HYDR2TAB PO (15:11)
== END 2017-12-08 17:47 | disposition home or self-care (01) ==
LOC: HSDC 05:39 → HSDI 10:50 → N06B 12:10
PROVIDERS: ADMIT Neurological Surgery; ATTEND Neurological Surgery
DX: S32.000A Wedge compression fracture of unspecified lumbar vertebra, initial encounter for closed fracture (principal); J44.9 Chronic obstructive pulmonary disease, unspecified; F10.229 Alcohol dependence with intoxication, unspecified; G47.33 Obstructive sleep apnea (adult) (pediatric); I10 Essential (primary) hypertension; G89.29 Other chronic pain; M54.5 Low back pain; M19.90 Unspecified osteoarthritis, unspecified site; K74.60 Unspecified cirrhosis of liver; E78.5 Hyperlipidemia, unspecified; N40.0 Benign prostatic hyperplasia without lower urinary tract symptoms; Z99.81 Dependence on supplemental oxygen; Z86.79 Personal history of other diseases of the circulatory system
CPT/HCPCS: 01936; 22514; 72100; 80048; 85025; 85610; 85730; 94150; 94664; 97162; 97164; G0378; G8987; G8988; J0690; J1170; J2250; J2405; J2710; J3010; J7120; J7512; J7613

== ENCOUNTER 2018-01-19 01:49 | Inpatient (IN) | payer MEDICARE ==
[~2018-01-19] VITALS: Ht 177.8 cm; Wt 102.3 kg
[2018-01-19] VITALS (16 sets, daily range): BP systolic 104–146; BP diastolic 65–90; PULSE 88–117; RESP 16–34; TEMP 96.3–97.9; O2SAT 89–99
[~2018-01-19 01:49] MED LIST changes: -LEVO500T8 PO; -LOVA40TA PO; +PRED2.5T PO; +SPIR25TA PO
[2018-01-19] MEDS ORDERED: RESP: ALBUTEROL 2.5 MG/IPRATROPIUM 0.5 MG NEB (SCH) INH ONE (02:15)
[2018-01-19] MEDS ORDERED: SODIUM CHLORIDE 0.9% FLUSH 10 ML FLUSH IVF PRN (02:15)
[2018-01-19] MEDS ORDERED: methylPREDNISolone SOD SUCC 125 MG/2 ML VIAL IV PUSH ONE (02:15)
--- NOTE | 2018-01-19 02:31 | PD ---
HPI . Respiratory distress Chief Complaint: Respiratory Distress Time Seen by Provider: 02:09 Travel History International Travel<30 days: No Contact w/Intl Traveler<30days: No Traveled to known affect area: No History of Present Illness HPI 67-year-old male brought in from home, was found on couch having difficulty breathing. EMS administered albuterol Atrovent nebulized treatment followed by 2 albuterol nebulized treatments with significant improvement in patient's wheezing and rales/rhonchi heard bilaterally. As per EMS patient had slight altered mental status at home which is also improving with patient's improving respiratory status. 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) Cardiovascular Problems: Yes (AAA) High Cholesterol: Yes Chemotherapy: No Chest Pain: No Congestive Heart Failure: No COPD: Yes Cerebrovascular Accident: Yes Diabetes: No Diminished Hearing: No Endocrine: No Gastrointestinal Disorders: No GERD: No Glaucoma: No Genitourinary: Yes (WEAK HOLD, PROSTATE ISSUES) Headaches: Yes Hepatitis: No Hiatal Hernia: No Heparin Induced Thrombocytopen: No Hypertension: Yes Immune Disorder: No Kidney Stones: Yes Musculoskeletal: Yes (BACK PAIN, VERTEBRAE FX, OA) Neurologic: No Psychiatric: No Reproductive: No Respiratory: Yes (COPD) Immunizations Current: Yes Migraines: No Myocardial Infarction: No Radiation Therapy: No Renal Failure: No Seizures: No Sickle Cell Disease: No Sleep Apnea: Yes Thyroid Disease: No Ulcer: No Past Surgical History Abdominal Surgery: Yes (appendectomy) AICD: No Appendectomy: Yes Arteriovenous Shunt: No Body Medical Devices: HARDWARE IN RIGHT FOOT, 3 CAGES IN SPINE, 2 CERVICLE SCREWS Cardiac Surgery: No Cholecystectomy: No Ear Surgery: No Endocrine Surgery: No Eye Surgery: Yes (CATARACTS GEN. ) Genitourinary Surgery: No Gynecologic Surgery: No Insulin Pump: No Joint Replacement: Yes (LEFT knee) Neurologic Surgery: Yes (EVACUATION OF subdural hematoma, CERVICAL CAGES PLACED ) Oral Surgery: No Pacemaker: No Thoracic Surgery: No Tonsillectomy: Yes Other Surgery: Yes (craniatomy,appendectomy, CTS surgery, 19 sinus surgeries) Social History Alcohol Use: Yes (1 pint of vodka per day ) Tobacco Use: No (QUIT 1999, had smoked 46 years.) Substance Use: Yes (ETOH ) Allergies-Medications (Allergen,Severity, Reaction): Coded Allergies: aspirin (Verified Allergy, Severe, ANAPHYLACTIC SHOCK, 01/19/18) SHOCK diclofenac (Verified Allergy, Severe, ANAPHYLACTIC SHOCK, 01/19/18) SHOCK etodolac (Verified Allergy, Severe, ANAPHYLACTIC SHOCK, 01/19/18) SHOCK flurbiprofen (Verified Allergy, Severe, ANAPHYLACTIC SHOCK, 01/19/18) SHOCK ibuprofen (Verified Allergy, Severe, ANAPHYLACTIC SHOCK, 01/19/18) SHOCK indomethacin (Verified Allergy, Severe, ANAPHYLACTIC SHOCK, 01/19/18) SHOCK ketoprofen (Verified Allergy, Severe, ANAPHYLACTIC SHOCK, 01/19/18) SHOCK ketorolac (Verified Allergy, Severe, ANAPHYLACTIC SHOCK, 01/19/18) SHOCK naproxen (Verified Allergy, Severe, ANAPHYLACTIC SHOCK, 01/19/18) SHOCK oxaprozin (Verified Allergy, Severe, ANAPHYLACTIC SHOCK, 01/19/18) SHOCK lisinopril (Verified Allergy, Mild, "MAKES MY FACE SWELL UP AND PREVENTS ME FROM BREATHING", 01/19/18) Reported Meds & Prescriptions Reported Meds & Active Scripts Active Hydromorphone (Hydromorphone HCl) 2 Mg Tab 2 Mg PO Q8H PRN As needed for severe breakthrough pain Gabapentin 300 Mg Cap 300 Mg PO TID Reported Prednisone 2.5 Mg Tab 2.5 Mg PO DAILY Spironolactone 25 Mg Tab 25 Mg PO DAILY Oxygen (O2) Device Liter SRINATH.CANULA PRN PRN Oxygen Concentrator Portable Gaseous 2 L/min via Nasal Canula Continuous For 99 months Vitamin B Complex (B-Complex Vitamins) 1 Tab 1 Tab PO DAILY Ventolin Hfa 18 GM Inh (Albuterol Sulfate) 90 Mcg/Act Aer 2 Puff INH Q6H PRN Sertraline (Sertraline HCl) 50 Mg Tab 50 Mg PO DAILY Potassium Chloride ER (Potassium Chloride) 10 Meq Cap 10 Meq PO BID Multiple Vitamin 1 Tab 1 Tab PO DAILY Cholestyramine 4 Gm/Dose Powd 4 Gm PO BID 1 level scoopful of powder contains 4 grams of cholestyramine. Spiriva Handihaler (Tiotropium Inh) 18 Mcg Cap 18 Mcg INH DAILY 1 capsule = 18 mcg Zantac (Ranitidine HCl) 150 Mg Tab 150 Mg PO BID Singulair (Montelukast Sodium) 10 Mg Tab 10 Mg PO HS Alprazolam 1 Mg Tab 2 Mg PO BID PRN Jessica Allergy (Fexofenadine HCl) 180 Mg Tab 180 Mg PO BID Amlodipine (Amlodipine Besylate) 5 Mg Tab 5 Mg PO DAILY Advair Diskus Inh (Fluticasone-Salmeterol Inh) 250-50 Mcg/Blist Aer 1 Puff INH BID Rinse mouth after use. Narrative Medication Allergies and medications reviewed Review of Systems ROS Limitations: Poor Historian Except as stated in HPI: all other systems reviewed are Neg General / Constitutional: Positive: Fever, No: Chills Eyes: No: Visual changes HENT: No: Headaches Cardiovascular: No: Chest Pain or Discomfort Respiratory: No: Shortness of Breath Gastrointestinal: No: Abdominal Pain Genitourinary: No: Dysuria Musculoskeletal: No: Pain Skin: No Rash Neurologic: No: Weakness Psychiatric: No: Depression Endocrine: No: Polydipsia Hematologic/Lymphatic: No: Easy Bruising Physical Exam Exam Limitations: Poor Historian Narrative GENERAL: Awake but somnolent, responsive. Low-grade tactile fever vital signs otherwise normal and stable SKIN: Warm and dry. Slightly sallow, diaphoretic HEAD: Atraumatic. Normocephalic. EYES: Pupils equal and round. No scleral icterus. No injection or drainage. ENT: No nasal bleeding or discharge. Mucous membranes pink and moist. NECK: Trachea midline. No JVD. Supple nontender full range of motion CARDIOVASCULAR: Regular rate and rhythm. RESPIRATORY: No accessory muscle use. Clear to auscultation. Breath sounds equal bilaterally. GASTROINTESTINAL: Abdomen soft, non-tender, nondistended. Hepatic and splenic margins not palpable. MUSCULOSKELETAL: Extremities without clubbing, cyanosis, or edema. No obvious deformities. NEUROLOGICAL: No obvious focal deficits, patient has somewhat depressed mental status, improving with oxygenation. Moving all 4 extremities spontaneously PSYCHIATRIC: Difficult exam secondary to patient's mental status and respiratory distress Data Data Last Documented VS Vital Signs Date Time Temp Pulse Resp B/P (MAP) Pulse Ox O2 Delivery O2 Flow Rate FiO2 01/19/18 05:00 98 22 120/77 (91) 92 Nasal Cannula 6.00 01/19/18 02:30 40 01/19/18 02:26 97.9 Orders Orders Complete Blood Count With Diff (01/19/18 02:09) Comprehensive Metabolic Panel (01/19/18 02:09) B-Type Natriuretic Peptide (01/19/18 02:09) D-Dimer (01/19/18 02:09) Act Partial Throm Time (Ptt) (01/19/18 02:09) Prothrombin Time / Inr (Pt) (01/19/18 02:09) Magnesium (Mg) (01/19/18 02:09) Ckmb (Isoenzyme) Profile (01/19/18 02:09) Troponin I (01/19/18 02:09) Urinalysis - C+S If Indicated (01/19/18 02:09) Influenzae A/B Antigen (01/19/18 02:09) Blood Culture (01/19/18 02:09) Iv Access Insert/Monitor (01/19/18 02:09) Electrocardiogram (01/19/18 02:09) Ecg Monitoring (01/19/18 02:09) Oximetry (01/19/18 02:09) Oxygen Administration (01/19/18 02:09) Chest, Single Ap (01/19/18 02:09) Sodium Chloride 0.9% Flush (Ns Flush) (01/19/18 02:15) Methylprednisolone So Succ Inj (Solumedr (01/19/18 02:15) Albuterol-Ipratropium Neb (Duoneb Neb) (01/19/18 02:15) Resp Bipap / Cpap Non Invas Vt (01/19/18 02:09) Lactic Acid (01/19/18 02:22) Arterial Blood Gas (Abg) (01/19/18 ) Nitroglycerin 2% Oint (Nitroglycerin 2% (01/19/18 02:45) CKMB (01/19/18 02:20) CKMB% (01/19/18 02:20) Ct Pulmonary Angiogram (01/19/18 ) Piperacil-Tazo 4.5 Gm Premix (Zosyn 4.5 (01/19/18 04:00) Iohexol 350 Inj (Omnipaque 350 Inj) (01/19/18 05:10) Vancomycin Inj (Vancomycin Inj) (01/19/18 05:30) Acetaminophen (Tylenol) (01/19/18 06:15) Admit To Inpatient (01/19/18 ) Inpatient Certification (01/19/18 ) Diet Heart Healthy (01/19/18 Breakfast) Activity Oob With Assistance (01/19/18 07:21) Vital Signs (Adult) YESSI.Q4H (01/19/18 07:21) Admit Order (Ed Use Only) (01/19/18 ) Labs Laboratory Tests Test 01/19/18 02:20 01/19/18 02:41 White Blood Count 11.9 TH/MM3 Red Blood Count 4.11 MIL/MM3 Hemoglobin 13.7 GM/DL Hematocrit 39.5 % Mean Corpuscular Volume 96.0 FL Mean Corpuscular Hemoglobin 33.3 PG Mean Corpuscular Hemoglobin Concent 34.7 % Red Cell Distribution Width 14.4 % Platelet Count 182 TH/MM3 Mean Platelet Volume 10.5 FL Neutrophils (%) (Auto) 68.1 % Lymphocytes (%) (Auto) 22.5 % Monocytes (%) (Auto) 6.8 % Eosinophils (%) (Auto) 2.1 % Basophils (%) (Auto) 0.5 % Neutrophils # (Auto) 8.1 TH/MM3 Lymphocytes # (Auto) 2.7 TH/MM3 Monocytes # (Auto) 0.8 TH/MM3 Eosinophils # (Auto) 0.3 TH/MM3 Basophils # (Auto) 0.1 TH/MM3 CBC Comment DIFF FINAL Differential Comment Prothrombin Time 10.0 SEC Prothromb Time International Ratio 1.0 RATIO Activated Partial Thromboplast Time 31.3 SEC D-Dimer Quantitative (PE/DVT) 1.55 MG/L FEU Blood Urea Nitrogen 14 MG/DL Creatinine 1.09 MG/DL Random Glucose 117 MG/DL Total Protein 8.2 GM/DL Albumin 3.3 GM/DL Calcium Level 9.1 MG/DL Magnesium Level 2.0 MG/DL Alkaline Phosphatase 87 U/L Aspartate Amino Transf (AST/SGOT) 17 U/L Alanine Aminotransferase (ALT/SGPT) 22 U/L Total Bilirubin 1.0 MG/DL Sodium Level 138 MEQ/L Potassium Level 3.5 MEQ/L Chloride Level 100 MEQ/L Carbon Dioxide Level 27.8 MEQ/L Anion Gap 10 MEQ/L Estimat Glomerular Filtration Rate 67 ML/MIN Lactic Acid Level 1.5 mmol/L Total Creatine Kinase 120 U/L Creatine Kinase MB 0.6 NG/ML Troponin I LESS THAN 0.02 NG/ML B-Type Natriuretic Peptide 6 PG/ML Blood Gas Puncture Site RT RADIAL Blood Gas Patient Temperature 98.6 Blood Gas HCO3 25 mmol/L Blood Gas Base Excess 0.8 mmol/L Blood Gas Oxygen Saturation 89 % Arterial Blood pH 7.43 Arterial Blood Partial Pressure CO2 38 mmHg Arterial Blood Partial Pressure O2 60 mmHG Arterial Blood Oxygen Content 16.7 Vol % Arterial Blood Carboxyhemoglobin 1.9 % Arterial Blood Methemoglobin 0.6 % Blood Gas Hemoglobin 13.3 G/DL Oxygen Delivery Device NASAL CANNULA Blood Gas Liter Flow 4 L/M MDM Medical Decision Making Medical Screen Exam Complete: Yes Emergency Medical Condition: Yes Medical Record Reviewed: Yes Differential Diagnosis Pneumonia, respiratory distress, COPD exacerbation Narrative Course note: CPAP/BiPAP machine not available, respiartory therapy utilizing ventilator machine as CPAP device. Noted inadequate sensing of device of pt's respirations to augment breath. CPAP BiPAP removed, patient tolerated well. IV antibiotics ordered. Case discussed with hospitalist service [facility] Dr. Islas, admitted Diagnosis Primary Impression: Pneumonia Qualified Codes: J18.9 - Pneumonia, unspecified organism Admitting Information Admitting Physician Requests: Admit Mendez Simpson MD Jan 19, 2018 02:31
[2018-01-19 02:36] LABS: AUTOMATED NEUTROPHIL # 8.1 TH/MM3 (1.8-7.7); BASOPHIL # 0.1 TH/MM3 (0-0.2); BASOPHIL % 0.5 % (0.0-2.0); EOSINOPHIL # 0.3 TH/MM3 (0-0.4); EOSINOPHIL % 2.1 % (0.0-4.0); HEMATOCRIT 39.5 % (39.0-51.0); HEMOGLOBIN 13.7 GM/DL (13.0-17.0); LYMPH % 22.5 % (9.0-44.0); LYMPHOCYTE # 2.7 TH/MM3 (1.0-4.8); MEAN CORPUSCULAR HEMOGLOBIN 33.3 PG (27.0-34.0); MEAN CORPUSCULAR HGB CONC 34.7 % (32.0-36.0); MEAN PLATELET VOLUME 10.5 FL (7.0-11.0); MONO % 6.8 % (0.0-8.0); MONOCYTE # 0.8 TH/MM3 (0-0.9); NEUT % 68.1 % (16.0-70.0); PLATELET COUNT 182 TH/MM3 (150-450); RED BLOOD COUNT 4.11 MIL/MM3 (4.50-5.90); RED CELL DISTRIBUTION WIDTH 14.4 % (11.6-17.2); WHITE BLOOD COUNT 11.9 TH/MM3 (4.0-11.0)
[2018-01-19] MEDS ORDERED: NITROGLYCERIN 2% OINT 1 GM PACKET TOPICAL ONE (02:45)
--- NOTE | 2018-01-19 02:45 | RADRPT ---
EXAM DATE/TIME: 01/19/2018 02:31 [facility] COMPARISON: CHEST SINGLE AP, May 11, 2016, 4:58. INDICATIONS : Shortness of breath. MEDICAL HISTORY : Carcinoma, squamous cell. Hypertension. Chronic obstructive pulmonary disease SURGICAL HISTORY : Fusion, cervical. Total knee replacement, left. Appendectomy. Rt foot ORIF, Subdural hematoma ENCOUNTER: Initial ACUITY: 1 day PAIN SCORE: 0/10 LOCATION: Bilateral chest FINDINGS: Image degradation due to motion. There is a right infrahilar consolidative infiltrate with loss of d elineation of the pulmonary markings. The left lung is clear. Both hemidiaphragms remain delineated . The heart is normal in size. CONCLUSION: Right infrahilar consolidative infiltrate. Elmer Lopez MD on January 19, 2018 at 2:43 Board Certified Radiologist. This report was verified electronically.
[2018-01-19 02:50] LABS: D-DIMER 1.55 MG/L FEU (0.00-0.50)
[2018-01-19 02:51] LABS: ALBUMIN 3.3 GM/DL (3.4-5.0); ALT (GPT) 22 U/L (12-78); AST (GOT) 17 U/L (15-37); BICARBONATE 27.8 MEQ/L (21.0-32.0); BLOOD UREA NITROGEN 14 MG/DL (7-18); CALCIUM 9.1 MG/DL (8.5-10.1); CHLORIDE 100 MEQ/L (98-107); CREATININE 1.09 MG/DL (0.60-1.30); GLOMERULAR FILTRATION RATE 67 ML/MIN (>89); GLUCOSE,RANDOM 117 MG/DL (74-106); SODIUM (NA) 138 MEQ/L (136-145)
[2018-01-19 02:55] LABS: ALKALINE PHOSPHATASE 87 U/L (45-117); TOTAL PROTEIN 8.2 GM/DL (6.4-8.2); TROPONIN I LESS THAN 0.02 NG/ML (0.02-0.05)
[2018-01-19] MEDS ORDERED: PIPERACIL-TAZO 4.5 GM PREMIX 100 ML IV ONE (04:00)
[2018-01-19] MEDS ORDERED: IOHEXOL 350 MG/ML 10 ML VIAL (for RAD DIAG) IVCONTRAST ONE (05:10)
--- NOTE | 2018-01-19 05:29 | RADRPT ---
EXAM DATE/TIME: 01/19/2018 05:03 [facility] COMPARISON: CHEST SINGLE AP, January 19, 2018, 2:31. INDICATIONS : Shortness of breath. IV CONTRAST: 75 cc Omnipaque 350 (iohexol) IV RADIATION DOSE: 10.71 CTDIvol (mGy) MEDICAL HISTORY : Cardiovascular disease. Hypertension. AAA SURGICAL HISTORY : None. ENCOUNTER: Initial ACUITY: 1 day PAIN SCALE: 3/10 LOCATION: Bilateral chest TECHNIQUE: Volumetric scanning of the chest was performed using a pulmonary embolism protocol MIP images were re constructed. Using automated exposure control and adjustment of the mA and/or kV according to patien t size, radiation dose was kept as low as reasonably achievable to obtain optimal diagnostic quality images. DICOM format image data is available electronically for review and comparison. Follow-up recommendations for detected pulmonary nodules are based at a minimum on nodule size and pa tient risk factors according to Fleischner Society Guidelines. FINDINGS: PULMONARY ARTERIES: No filling defects are seen in the pulmonary arteries through the segmental level. LUNGS: Multifocal areas of masslike consolidation involving right middle lobe and right lower lobe. PLEURAE: There is no pleural thickening or pleural effusion. MEDIASTINUM: There is good visualization of the great vessels of the middle mediastinum. No evidence of mediastin al or hilar adenopathy/mass. CONCLUSION: 1. The study is negative for pulmonary embolism. 2. Multifocal areas of consolidative infiltrate in the right middle and right lower lobe. Elmer Lopez MD on January 19, 2018 at 5:26 Board Certified Radiologist. This report was verified electronically.
[2018-01-19] MEDS ORDERED: VANCOMYCIN INJ 1,000 MG in SODIUM CHLOR 0.9% 250 ML INJ 250 ML IV ONE (05:30)
[2018-01-19] MEDS ORDERED: ACETAMINOPHEN 325 MG TAB PO ONE (06:15)
[2018-01-19] MEDS ORDERED: RESP: ALBUTEROL 2.5 MG/IPRATROPIUM 0.5 MG NEB (PRN) NEB (09:30)
[2018-01-19] MEDS ORDERED: ONDANSETRON HCL 4 MG/2 ML VIAL IV PRN (09:30)
[2018-01-19] MEDS ORDERED: ACETAMINOPHEN 325 MG TAB PO PRN (09:30)
[2018-01-19] MEDS ORDERED: PILL SPLITTER OTHER PRN (10:15)
[2018-01-19] MEDS: BUDESONIDE-FORMOTEROL 160/4.5 MCG INHALER INH SCH ×2 (10:36→23:43)
[2018-01-19] MEDS: TIOTROPIUM BROMIDE 18 MCG INH INH SCH (10:36)
[2018-01-19] MEDS: PIPERACIL-TAZO 4.5 GM PREMIX 100 ML IV SCH ×2 (10:36→17:00)
[2018-01-19] MEDS: PANTOPRAZOLE SOD 40 MG DELAYED RELEASE TAB PO SCH ×2 (10:36→23:43)
--- NOTE | 2018-01-19 10:53 | HHI.HP ---
HPI Service CP Hospitalists Primary Care Physician Carlos Alberto Nelson MD Admission Diagnosis Pneumonia Chief Complaint: Generalized weakness Travel History International Travel<30 Days: No Contact w/Intl Traveler <30 Da: No Traveled to Known Affected Are: No History of Present Illness Mr. Buck is a 67 y/o WM with hypertension, AAA, COPD, osteoarthritis, previous hospitalization for subdural hematoma and craniotomy, and recurrent hospitalizations and ER visits for alcoholism. Patient's last visit to the ER was 09/22/17. He recently underwent bilateral L1 kyphoplasty with intraoperative biplanar fluoroscopic imaging with Dr. Jayme Eller on 12/06/17. He was discharged to home on 12/08/17 and reports that he had been doing well post -operatively. He states that he had been ambulating with the TLSO brace without any other assistive devices. Then 4 days ago he started having overall generalized weakness. He states that the weakness progressively worsened to where he couldn't even get off the couch to urinate. Overnight this morning he [place] [facility] [place] he was reportedly was found on couch having difficulty breathing. According to the ED notes, EMS administered Albuterol/Atrovent nebulized treatment followed by 2 albuterol nebulized treatments with significant improvement in patient's wheezing and rales/rhonchi heard bilaterally. As per EMS patient had slight altered mental status at home which is also improving with patient's improving respiratory status. Pt states that he uses supplemental O2 as needed at night. He had a CXR at admission which noted right infrahilar consolidative infiltrate. Pulmonary angiogram was performed which was negative for pulmonary embolism but noted multifocal areas of consolidative infiltrate in the right middle and right lower lobe. He denies any recent nausea/vomiting, reflux or regurgitation issues. He does report that he had an episode of choking on food about 1 week ago but can't remember what the food was. He states that he choked for about an hour when that occurred. Pt denies any recent alcohol use as well. No reported fevers or chills. Denies any cough, congestion, SOB, rhinorrhea, or sore throat. He was tested for Influenza in the ED which was negative. His labs at admission noted a slightly elevated WBC count of 11.8. Blood cultures were drawn in the ED and are pending. Denies any increased back pain, abdominal pain, melena, BRBPR, chest pain, or palpitations. He is currently on 6L of supplemental O2 in the ED. Review of Systems ROS Limitations: Poor Historian Constitutional: DENIES: Fever, Chills Respiratory: COMPLAINS OF: Shortness of breath, DENIES: Cough, Wheezing, Sputum production Cardiovascular: DENIES: Chest pain, Palpitations, Lower Extremity Edema Gastrointestinal: DENIES: Abdominal pain, Reflux, Vomiting Genitourinary: DENIES: Urgency, Hematuria, Dysuria Musculoskeletal: DENIES: Back pain, Neck pain Integumentary: DENIES: Rash Neurologic: DENIES: Headache Past Family Social History Past Medical History COPD Alcohol these Hypertension Hyperlipidemia Anxiety disorder Osteoarthritis Chronic low back pain BPH History of abdominal aortic aneurysm Past Surgical History Bilateral L1 kyphoplasty with intraoperative biplanar fluoroscopic imaging, Dr. Jayme Eller on 12/06/17 Left craniotomy for evacuation of subdural hematoma, December 2015 Cervical spine surgery Multiple orthopedic surgeries including left knee arthroplasty and left wrist surgery unspecified Appendectomy Reported Medications Hydromorphone (Hydromorphone HCl) 2 Mg Tab 2 Mg PO Q8H PRN As needed for severe breakthrough pain Gabapentin 300 Mg Cap 300 Mg PO TID Prednisone 2.5 Mg Tab 2.5 Mg PO DAILY Spironolactone 25 Mg Tab 25 Mg PO DAILY Oxygen (O2) Device Liter SRINATH.CANULA PRN PRN Oxygen Concentrator Portable Gaseous 2 L/min via Nasal Canula Continuous For 99 months Vitamin B Complex (B-Complex Vitamins) 1 Tab 1 Tab PO DAILY Ventolin Hfa 18 GM Inh (Albuterol Sulfate) 90 Mcg/Act Aer 2 Puff INH Q6H PRN Sertraline (Sertraline HCl) 50 Mg Tab 50 Mg PO DAILY Potassium Chloride ER (Potassium Chloride) 10 Meq Cap 10 Meq PO BID Multiple Vitamin 1 Tab 1 Tab PO DAILY Cholestyramine 4 Gm/Dose Powd 4 Gm PO BID 1 level scoopful of powder contains 4 grams of cholestyramine. Spiriva Handihaler (Tiotropium Inh) 18 Mcg Cap 18 Mcg INH DAILY 1 capsule = 18 mcg Zantac (Ranitidine HCl) 150 Mg Tab 150 Mg PO BID Singulair (Montelukast Sodium) 10 Mg Tab 10 Mg PO HS Alprazolam 1 Mg Tab 2 Mg PO BID PRN Jessica Allergy (Fexofenadine HCl) 180 Mg Tab 180 Mg PO BID Amlodipine (Amlodipine Besylate) 5 Mg Tab 5 Mg PO DAILY Advair Diskus Inh (Fluticasone-Salmeterol Inh) 250-50 Mcg/Blist Aer 1 Puff INH BID Rinse mouth after use. Allergies: Coded Allergies: aspirin (Verified Allergy, Severe, ANAPHYLACTIC SHOCK, 01/19/18) SHOCK diclofenac (Verified Allergy, Severe, ANAPHYLACTIC SHOCK, 01/19/18) SHOCK etodolac (Verified Allergy, Severe, ANAPHYLACTIC SHOCK, 01/19/18) SHOCK flurbiprofen (Verified Allergy, Severe, ANAPHYLACTIC SHOCK, 01/19/18) SHOCK ibuprofen (Verified Allergy, Severe, ANAPHYLACTIC SHOCK, 01/19/18) SHOCK indomethacin (Verified Allergy, Severe, ANAPHYLACTIC SHOCK, 01/19/18) SHOCK ketoprofen (Verified Allergy, Severe, ANAPHYLACTIC SHOCK, 01/19/18) SHOCK ketorolac (Verified Allergy, Severe, ANAPHYLACTIC SHOCK, 01/19/18) SHOCK naproxen (Verified Allergy, Severe, ANAPHYLACTIC SHOCK, 01/19/18) SHOCK oxaprozin (Verified Allergy, Severe, ANAPHYLACTIC SHOCK, 01/19/18) SHOCK lisinopril (Verified Allergy, Mild, "MAKES MY FACE SWELL UP AND PREVENTS ME FROM BREATHING", 01/19/18) Family History Noncontributory Social History Hx of heavy alcohol use, 1 pint of vodka daily. Per patient he quit drinking in September 2017 Current smoker No illicit street drugs Physical Exam Vital Signs Vital Signs Date Time Temp Pulse Resp B/P (MAP) Pulse Ox O2 Delivery O2 Flow Rate FiO2 01/19/18 08:25 97.5 96 115/82 (93) 95 Nasal Cannula 6.00 01/19/18 05:00 98 22 120/77 (91) 92 Nasal Cannula 6.00 01/19/18 04:00 88 16 146/86 (106) 99 Nasal Cannula 6.00 01/19/18 03:30 113 34 126/71 (89) 94 Nasal Cannula 7.00 01/19/18 02:59 93 Nasal Cannula 6.00 01/19/18 02:40 93 Nasal Cannula 4.00 01/19/18 02:39 93 Nasal Cannula 4.00 01/19/18 02:30 95 40 01/19/18 02:26 97.9 93 01/19/18 02:18 93 BiPAP 40 01/19/18 02:18 117 16 135/90 (105) 91 01/19/18 02:15 90 BiPAP 40 01/19/18 02:10 97.9 117 22 135/90 (105) 89 Physical Exam GENERAL: This is a well-nourished, well-developed patient, in no apparent distress. HEENT: Atraumatic. Normocephalic. No temporal or scalp tenderness. No scleral icterus. No injection or drainage. Airway patent. NECK: Trachea midline, supple, nontender. CARDIO: Regular. RESP: Poor air movement bilaterally. No wheezes, rales, or rhonchi. ABD: +BS, soft, non-tender, nondistended. No hepato-splenomegaly, or palpable masses. No guarding. EXT: Extremities without clubbing, cyanosis, or edema. NEURO: Awake and alert. Motor and sensory grossly within normal limits. Normal speech. Laboratory Laboratory Tests Test 01/19/18 02:20 01/19/18 02:41 White Blood Count 11.9 Red Blood Count 4.11 Hemoglobin 13.7 Hematocrit 39.5 Mean Corpuscular Volume 96.0 Mean Corpuscular Hemoglobin 33.3 Mean Corpuscular Hemoglobin Concent 34.7 Red Cell Distribution Width 14.4 Platelet Count 182 Mean Platelet Volume 10.5 Neutrophils (%) (Auto) 68.1 Lymphocytes (%) (Auto) 22.5 Monocytes (%) (Auto) 6.8 Eosinophils (%) (Auto) 2.1 Basophils (%) (Auto) 0.5 Neutrophils # (Auto) 8.1 Lymphocytes # (Auto) 2.7 Monocytes # (Auto) 0.8 Eosinophils # (Auto) 0.3 Basophils # (Auto) 0.1 CBC Comment DIFF FINAL Differential Comment Prothrombin Time 10.0 Prothromb Time International Ratio 1.0 Activated Partial Thromboplast Time 31.3 D-Dimer Quantitative (PE/DVT) 1.55 Blood Urea Nitrogen 14 Creatinine 1.09 Random Glucose 117 Total Protein 8.2 Albumin 3.3 Calcium Level 9.1 Magnesium Level 2.0 Alkaline Phosphatase 87 Aspartate Amino Transf (AST/SGOT) 17 Alanine Aminotransferase (ALT/SGPT) 22 Total Bilirubin 1.0 Sodium Level 138 Potassium Level 3.5 Chloride Level 100 Carbon Dioxide Level 27.8 Anion Gap 10 Estimat Glomerular Filtration Rate 67 Lactic Acid Level 1.5 Total Creatine Kinase 120 Creatine Kinase MB 0.6 Troponin I LESS THAN 0.02 B-Type Natriuretic Peptide 6 Blood Gas Puncture Site RT RADIAL Blood Gas Patient Temperature 98.6 Blood Gas HCO3 25 Blood Gas Base Excess 0.8 Blood Gas Oxygen Saturation 89 Arterial Blood pH 7.43 Arterial Blood Partial Pressure CO2 38 Arterial Blood Partial Pressure O2 60 Arterial Blood Oxygen Content 16.7 Arterial Blood Carboxyhemoglobin 1.9 Arterial Blood Methemoglobin 0.6 Blood Gas Hemoglobin 13.3 Oxygen Delivery Device NASAL CANNULA Blood Gas Liter Flow 4 Date/Time Source Procedure Growth Status 01/19/18 02:20 Blood Peripheral Aerobic Blood Culture Pending Received 01/19/18 02:20 Blood Peripheral Anaerobic Blood Culture Pending Received 01/19/18 02:15 Nasal Washing Influenza Types A,B Antigen (ALMAZ) - Final NEGATIVE FOR FLU A AND B ANTIGEN.... Complete Result Diagram: 01/19/18 0220 01/19/18 0220 Imaging Last Impressions Chest X-Ray 01/19/18 0209 Signed Impressions: Service Date/Time: Friday, January 19, 2018 02:31 - CONCLUSION: Right infrahilar consolidative infiltrate. Elmer Lopez MD CT Angiography 01/19/18 0000 Signed Impressions: Service Date/Time: Friday, January 19, 2018 05:03 - CONCLUSION: 1. The study is negative for pulmonary embolism. 2. Multifocal areas of consolidative infiltrate in the right middle and right lower lobe. Elmer Lopez MD Caprini VTE Risk Assessment Caprini VTE Risk Assessment: Mod/High Risk (score >= 2) Caprini Risk Assessment Model Point Value = 1 Point Value = 2 Point Value = 3 Point Value = 5 Age 41-60 Minor surgery BMI > 25 kg/m2 Swollen legs Varicose veins or History of unexplained or recurrent spontaneous Oral contraceptives or hormone replacement Sepsis (< 1 month) Serious lung disease, including pneumonia (< 1 month) Abnormal pulmonary function Acute myocardial infarction Congestive heart failure (< 1 month) History of inflammatory bowel disease Medical patient at bed rest Age 61-74 Arthroscopic surgery Major open surgery (> 45 min) Laparoscopic surgery (> 45 min) Malignancy Confined to bed (> 72 hours) Immobilizing plaster cast Central venous access Age >= 75 History of VTE Family history of VTE Factor V Leiden Prothrombin [id number] Lupus anticoagulant Anticardiolipin antibodies Elevated serum homocysteine Heparin-induced thrombocytopenia Other congenital or acquired thrombophilia Stroke (< 1 month) Elective arthroplasty Hip, pelvis, or leg fracture Acute spinal cord injury (< 1 month) Prophylaxis Regimen Total Risk Factor Score Risk Level Prophylaxis Regimen 0-1 Low Early ambulation 2 Moderate Order ONE of the following: *Sequential Compression Device (SCD) *Heparin 5000 units SQ BID 3-4 Higher Order ONE of the following medications: *Heparin 5000 units SQ TID *Enoxaparin/Lovenox 40 mg SQ daily (WT < 150 kg, CrCl > 30 mL/min) *Enoxaparin/Lovenox 30 mg SQ daily (WT < 150 kg, CrCl > 10-29 mL/min) *Enoxaparin/Lovenox 30 mg SQ BID (WT < 150 kg, CrCl > 30 mL/min) AND/OR *Sequential Compression Device (SCD) 5 or more Highest Order ONE of the following medications: *Heparin 5000 units SQ TID (Preferred with Epidurals) *Enoxaparin/Lovenox 40 mg SQ daily (WT < 150 kg, CrCl > 30 mL/min) *Enoxaparin/Lovenox 30 mg SQ daily (WT < 150 kg, CrCl > 10-29 mL/min) *Enoxaparin/Lovenox 30 mg SQ BID (WT < 150 kg, CrCl > 30 mL/min) AND *Sequential Compression Device (SCD) Assessment and Plan Problem List: (1) Generalized weakness ICD Codes: R53.1 - Weakness Status: Acute Plan: - Patient is a 67 y/o WM with hypertension, AAA, COPD, osteoarthritis, previous hospitalization for subdural hematoma and craniotomy, and recurrent hospitalizations and ER visits for alcoholism. Patient's last visit to the ER with acute intoxication was 09/22/17. He recently underwent bilateral L1 kyphoplasty with intraoperative biplanar fluoroscopic imaging with Dr. Jayme Eller on 12/06/17. He was discharged to home on 12/08/17 and reports that he had been doing well post-operatively. He states that he had been ambulating with the TLSO brace without any other assistive devices. Generalized weakness Possible aspiration pneumonia COPD - Pt was brought to the ED with generalized weakness, slight AMS and SOB. 4 days ago he started having overall generalized weakness. He states that the weakness progressively worsened to where he couldn't even get off the couch to urinate. - [place] [facility] [place] he was reportedly was found on couch having difficulty breathing. According to the ED notes, EMS administered Albuterol/Atrovent nebulized treatment followed by 2 albuterol nebulized treatments with significant improvement in patient's wheezing and rales/rhonchi heard bilaterally. As per EMS patient had slight altered mental status at home which is also improving with patient's improving respiratory status. - Pt states that he uses supplemental O2 as needed at night. - CXR at admission which noted right infrahilar consolidative infiltrate. - Pt had a noted elevated D-dimer so Pulmonary angiogram was performed which was negative for pulmonary embolism but noted multifocal areas of consolidative infiltrate in the right middle and right lower lobe. He denies any recent nausea/vomiting, reflux or regurgitation issues. Pt denies any recent alcohol use as well. No reported fevers or chills. Denies any cough, congestion, SOB, rhinorrhea, or sore throat. - Influenza testing was negative. - Slightly elevated WBC count of 11.8. - Blood cultures were drawn in the ED and are pending. - He is currently on 6L of supplemental O2 in the ED. - Pt was given Zosyn in the ED and this will be continued for possible aspiration pneumonia - Cont. Duonebs Q4H scheduled and Q2H PRN - Cont. home COPD meds (Spiriva, Advair, Singulair) - Give Solu-Medrol 60mg Q6H - Supportive care HTN - Cont. Norvasc - Pts BP has been low normal, hold on resuming Aldactone at this time but monitor Hyperlipidemia - Cont home meds L1 compression fracture s/p Bilateral L1 kyphoplasty on 12/06/[address] Alexandra hamm when OOB - PT evaluation Hx of alcohol abuse - Pt denies any recent alcohol use, since 09/2017 DVT prophylaxis with SCDs (2) Pneumonia ICD Codes: J18.9 - Pneumonia, unspecified organism Status: Acute (3) COPD (chronic obstructive pulmonary disease) ICD Codes: J44.9 - Chronic obstructive pulmonary disease, unspecified Status: Chronic (4) HTN (hypertension) ICD Codes: I10 - Essential (primary) hypertension Status: Chronic (5) Hyperlipidemia ICD Codes: E78.5 - Hyperlipidemia, unspecified Status: Chronic (6) Lumbar compression fracture ICD Codes: S32.000A - Wedge compression fracture of unspecified lumbar vertebra , initial encounter for closed fracture Status: Acute Assessment and Plan Patient examined. Assessment and plan formulated with Guillermina Kohler PA-C. I agree with the above. Pt says he choked on his dinner and coughed for over an hour within past week. CTA showed rml/rll pna probably aspiration related cont abx. cont steroid with taper. nebs. improved strength from admission cont Pt. Physician Certification 2 Midnight Certification Type: Admission for Inpatient Services Order for Inpatient Services The services are ordered in accordance with Medicare regulations or non- Medicare payer requirements, as applicable. In the case of services not specified as inpatient-only, they are appropriately provided as inpatient services in accordance with the 2-midnight benchmark. Estimated LOS (days): 3 3 days is the estimated time the patient will need to remain in the hospital, assuming treatment plan goals are met and no additional complications. Post-Hospital Plan: Not yet determined Guillermina Kohler Jan 19, 2018 10:53 Ortiz Lewis MD Jan 19, 2018 15:14
[2018-01-19] MEDS: methylPREDNISolone SOD SUCC 125 MG/2 ML VIAL IV PUSH SCH ×2 (12:05→18:25)
[2018-01-19] MEDS: GABAPENTIN 300 MG CAP PO SCH ×2 (12:05→18:25)
[2018-01-19] MEDS: RESP: ALBUTEROL 2.5 MG/IPRATROPIUM 0.5 MG NEB (SCH) NEB ×3 (12:14→20:09)
--- NOTE | 2018-01-19 20:29 | EKG ---
Date Performed: 01/19/2018 Time Performed: 02:12:07 PTAGE: 67 years EKG: SINUS TACHYCARDIA LOW QRS VOLTAGE IN PRECORDIAL LEADS PATTERN CONSISTENT WITH PULMONARY DIS EASE LEFT ANTERIOR FASCICULAR BLOCK NONSPECIFIC T-WAVE ABNORMALITY ABNORMAL ECG PREVIOUS TRACING : 11/15/2017 07.18 Since the previous tracing, no significant change noted DOCTOR: Abhilash Daniels Interpretating Date/Time 01/19/2018 20:28:37
[2018-01-19] MEDS: CHOLESTYRAMINE 4 GM PACKET PO SCH (21:00)
[2018-01-19] MEDS ORDERED: NON-FORMULARY DRUG (Ranitidine (Zantac) 150 MG) PO SCH (21:00)
[2018-01-19] MEDS: ALPRAZolam 1 MG TAB PO PRN (23:42)
[2018-01-19] MEDS: MONTELUKAST SODIUM 10 MG TAB PO SCH (23:43)
[2018-01-20] VITALS (8 sets, daily range): BP systolic 122–189; BP diastolic 63–98; PULSE 78–106; RESP 18–20; TEMP 96.1–98.2; O2SAT 92–99
[2018-01-20] MEDS: methylPREDNISolone SOD SUCC 125 MG/2 ML VIAL IV PUSH SCH ×3 (00:48→11:49)
[2018-01-20] MEDS: PIPERACIL-TAZO 4.5 GM PREMIX 100 ML IV SCH ×4 (00:48→23:57)
[2018-01-20] MEDS: HYDROmorphone HCL 2 MG TAB PO PRN ×2 (00:48→08:31)
[2018-01-20] MEDS ORDERED: HYDROmorphone HCL 4 MG TAB PO ONE (05:15)
[2018-01-20 07:57] LABS: AUTOMATED NEUTROPHIL # 14.9 TH/MM3 (1.8-7.7); BASOPHIL # 0.2 TH/MM3 (0-0.2); HEMOGLOBIN 12.3 GM/DL (13.0-17.0); LYMPHOCYTE # 0.6 TH/MM3 (1.0-4.8); MEAN CELL VOLUME 96.9 FL (80.0-100.0); MEAN CORPUSCULAR HGB CONC 34.1 % (32.0-36.0); MEAN PLATELET VOLUME 12.1 FL (7.0-11.0); MONOCYTE # 0.3 TH/MM3 (0-0.9); PLATELET COUNT 221 TH/MM3 (150-450); RED BLOOD COUNT 3.71 MIL/MM3 (4.50-5.90); RED CELL DISTRIBUTION WIDTH 14.8 % (11.6-17.2)
[2018-01-20] MEDS: amLODIPine BESYLATE 5 MG TAB PO SCH (08:32)
[2018-01-20] MEDS: GABAPENTIN 300 MG CAP PO SCH ×2 (08:32→11:46)
[2018-01-20] MEDS: PANTOPRAZOLE SOD 40 MG DELAYED RELEASE TAB PO SCH ×2 (08:32→21:55)
[2018-01-20] MEDS: SERTRALINE HCL 50 MG TAB PO SCH (08:32)
[2018-01-20] MEDS: CHOLESTYRAMINE 4 GM PACKET PO SCH ×2 (08:32→21:00)
[2018-01-20 08:40] LABS: CALCIUM 9.1 MG/DL (8.5-10.1); CREATININE 1.28 MG/DL (0.60-1.30); MAGNESIUM 2.2 MG/DL (1.5-2.5)
[2018-01-20] MEDS: RESP: ALBUTEROL 2.5 MG/IPRATROPIUM 0.5 MG NEB (SCH) NEB ×4 (08:41→19:57)
[2018-01-20] MEDS: BUDESONIDE-FORMOTEROL 160/4.5 MCG INHALER INH SCH ×2 (09:00→21:56)
[2018-01-20] MEDS ORDERED: predniSONE 5 MG TAB PO SCH (09:00)
[2018-01-20] MEDS: TIOTROPIUM BROMIDE 18 MCG INH INH SCH (09:00)
--- NOTE | 2018-01-20 09:27 | HHI.PR ---
Subjective Remarks severe back pain. home meds not ordered has back surgery planned next week. Objective Vitals heart reg lung diminished air entry right base abd s/nt ext no edema Vital Signs Date Time Temp Pulse Resp B/P (MAP) Pulse Ox O2 Delivery O2 Flow Rate FiO2 01/20/18 08:43 92 Nasal Cannula 3.00 01/20/18 08:00 97.4 84 18 122/79 (93) 92 01/20/18 04:00 98.1 91 18 189/98 (128) 98 01/20/18 00:00 98.1 78 18 139/87 (104) 99 01/19/18 20:11 91 Nasal Cannula 1.00 01/19/18 17:30 96.3 100 18 121/74 (90) 93 01/19/18 17:25 01/19/18 17:13 103 17 128/68 (88) 94 Nasal Cannula 6.00 01/19/18 14:01 97.6 102 23 104/65 (78) 92 Room Air 6.00 01/19/18 12:15 92 Nasal Cannula 5.00 Result Diagram: 01/20/18 0604 01/20/18 0604 Imaging Last Impressions Chest X-Ray 01/19/18 0209 Signed Impressions: Service Date/Time: Friday, January 19, 2018 02:31 - CONCLUSION: Right infrahilar consolidative infiltrate. Elmer Lopez MD CT Angiography 01/19/18 0000 Signed Impressions: Service Date/Time: Friday, January 19, 2018 05:03 - CONCLUSION: 1. The study is negative for pulmonary embolism. 2. Multifocal areas of consolidative infiltrate in the right middle and right lower lobe. Elmer Lopez MD A/P Problem List: (1) Generalized weakness ICD Codes: R53.1 - Weakness Status: Acute Plan: - Patient is a 67 y/o WM with hypertension, AAA, COPD, osteoarthritis, previous hospitalization for subdural hematoma and craniotomy, and recurrent hospitalizations and ER visits for alcoholism. Patient's last visit to the ER with acute intoxication was 09/22/17. He recently underwent bilateral L1 kyphoplasty with intraoperative biplanar fluoroscopic imaging with Dr. Jayme Eller on 12/06/17. He was discharged to home on 12/08/17 and reports that he had been doing well post-operatively. He states that he had been ambulating with the DESTINIO brace without any other assistive devices. Generalized weakness Possible aspiration pneumonia COPD - Pt was brought to the ED with generalized weakness, slight AMS and SOB. 4 days ago he started having overall generalized weakness. He states that the weakness progressively worsened to where he couldn't even get off the couch to urinate. - He was brought [place] [facility] [place] after he was reportedly was found on couch having difficulty breathing. According to the ED notes, EMS administered Albuterol/Atrovent nebulized treatment followed by 2 albuterol nebulized treatments with significant improvement in patient's wheezing and rales/rhonchi heard bilaterally. As per EMS patient had slight altered mental status at home which is also improving with patient's improving respiratory status. - Pt states that he uses supplemental O2 as needed at night. - CXR at admission which noted right infrahilar consolidative infiltrate. - Pt had a noted elevated D-dimer so Pulmonary angiogram was performed which was negative for pulmonary embolism but noted multifocal areas of consolidative infiltrate in the right middle and right lower lobe. - Influenza testing was negative. - Slightly elevated WBC count of 11.8. - Blood cultures were drawn in the ED - Pt was given Zosyn in the ED and this will be continued for aspiration pneumonia. pt confirms choking/aspirating on food days before his sx's - Cont. Duonebs Q4H scheduled and Q2H PRN - Cont. home COPD meds (Spiriva, Advair, Singulair) - cont solumedrol and taper ...plan to d/c home tomorrow on abx po and close pcp f/u and recheck before surgery. L1 compression fracture s/p Bilateral L1 kyphoplasty on 12/06/[address] Morris - HATTIE hamm when OOB - PT evaluation - resume home pain meds Hx of alcohol abuse - Pt denies any recent alcohol use, since 09/2017 DVT prophylaxis with SCDs (2) Pneumonia ICD Codes: J18.9 - Pneumonia, unspecified organism Status: Acute (3) COPD (chronic obstructive pulmonary disease) ICD Codes: J44.9 - Chronic obstructive pulmonary disease, unspecified Status: Chronic (4) HTN (hypertension) ICD Codes: I10 - Essential (primary) hypertension Status: Chronic (5) Hyperlipidemia ICD Codes: E78.5 - Hyperlipidemia, unspecified Status: Chronic (6) Lumbar compression fracture ICD Codes: S32.000A - Wedge compression fracture of unspecified lumbar vertebra , initial encounter for closed fracture Status: Acute Ortiz Lewis MD Jan 20, 2018 09:27
[2018-01-20] MEDS: HYDROmorphone HCL 4 MG TAB PO PRN ×3 (11:46→23:58)
[2018-01-20] MEDS: MONTELUKAST SODIUM 10 MG TAB PO SCH (21:55)
[2018-01-20] MEDS: ALPRAZolam 1 MG TAB PO PRN (21:59)
[2018-01-21 00:09] VITALS: BP 136/79; PULSE 100; RESP 18; TEMP 97.4; O2SAT 94
[2018-01-21 04:00] VITALS: BP 155/95; PULSE 102; RESP 19; TEMP 98.1; O2SAT 93
[2018-01-21] MEDS: PIPERACIL-TAZO 4.5 GM PREMIX 100 ML IV SCH ×2 (04:14→11:00)
[2018-01-21] MEDS: HYDROmorphone HCL 4 MG TAB PO PRN ×2 (04:16→09:14)
[2018-01-21] MEDS: methylPREDNISolone SOD SUCC 125 MG/2 ML VIAL IV PUSH SCH ×2 (05:01)
[2018-01-21 08:00] VITALS: BP 120/94; PULSE 101; RESP 19; TEMP 98.1; O2SAT 91
[2018-01-21] MEDS: CHOLESTYRAMINE 4 GM PACKET PO SCH (09:00)
--- NOTE | 2018-01-21 09:13 | HHI.PR ---
Subjective Remarks breathing well. just chronic back pain weakness resolved. Objective Vitals heart reg lung good air entry abd s/nt ext no edema Vital Signs Date Time Temp Pulse Resp B/P (MAP) Pulse Ox O2 Delivery O2 Flow Rate FiO2 01/21/18 08:00 98.1 101 19 120/94 (103) 91 01/21/18 04:00 98.1 102 19 155/95 (115) 93 01/21/18 00:09 97.4 100 18 136/79 (98) 94 01/20/18 21:50 98.2 104 20 133/82 (99) 94 01/20/18 19:59 94 Nasal Cannula 3.00 01/20/18 16:00 96.1 106 18 134/86 (102) 92 01/20/18 12:00 97.6 103 18 124/85 (98) 93 Result Diagram: 01/20/18 0604 01/20/18 0604 Imaging Last Impressions Chest X-Ray 01/19/18 0209 Signed Impressions: Service Date/Time: Friday, January 19, 2018 02:31 - CONCLUSION: Right infrahilar consolidative infiltrate. Elmer Lopez MD CT Angiography 01/19/18 0000 Signed Impressions: Service Date/Time: Friday, January 19, 2018 05:03 - CONCLUSION: 1. The study is negative for pulmonary embolism. 2. Multifocal areas of consolidative infiltrate in the right middle and right lower lobe. Elmer Lopez MD A/P Problem List: (1) Generalized weakness ICD Codes: R53.1 - Weakness Status: Acute Plan: - Patient is a 67 y/o WM with hypertension, AAA, COPD, osteoarthritis, previous hospitalization for subdural hematoma and craniotomy, and recurrent hospitalizations and ER visits for alcoholism. Patient's last visit to the ER with acute intoxication was 09/22/17. He recently underwent bilateral L1 kyphoplasty with intraoperative biplanar fluoroscopic imaging with Dr. Jayme Eller on 12/06/17. He was discharged to home on 12/08/17 and reports that he had been doing well post-operatively. He states that he had been ambulating with the TLSO brace without any other assistive devices. Generalized weakness aspiration pneumonia COPD - Pt was brought to the ED with generalized weakness, slight AMS and SOB. 4 days ago he started having overall generalized weakness. He states that the weakness progressively worsened to where he couldn't even get off the couch to urinate. - He was brought into the ED at [facility] [place] from home after he was reportedly was found on couch having difficulty breathing. According to the ED notes, EMS administered Albuterol/Atrovent nebulized treatment followed by 2 albuterol nebulized treatments with significant improvement in patient's wheezing and rales/rhonchi heard bilaterally. As per EMS patient had slight altered mental status at home which is also improving with patient's improving respiratory status. - Pt states that he uses supplemental O2 as needed at night. - CXR at admission which noted right infrahilar consolidative infiltrate. - Pt had a noted elevated D-dimer so Pulmonary angiogram was performed which was negative for pulmonary embolism but noted multifocal areas of consolidative infiltrate in the right middle and right lower lobe. - Influenza testing was negative. - Slightly elevated WBC count of 11.8. - Blood cultures were drawn in the ED - Pt was given Zosyn in the ED and this will be continued for aspiration pneumonia. pt confirms choking/aspirating on food days before his sx's - Cont. Duonebs Q4H scheduled and Q2H PRN - Cont. home COPD meds (Spiriva, Advair, Singulair) - cont solumedrol and taper ...d/c home today on abx po and close pcp f/u and recheck before surgery. L1 compression fracture s/p Bilateral L1 kyphoplasty on 12/06/[address] Alexandra hamm when OOB - PT evaluation - resume home pain meds Hx of alcohol abuse - Pt denies any recent alcohol use, since 09/2017 DVT prophylaxis with SCDs (2) Pneumonia ICD Codes: J18.9 - Pneumonia, unspecified organism Status: Acute (3) COPD (chronic obstructive pulmonary disease) ICD Codes: J44.9 - Chronic obstructive pulmonary disease, unspecified Status: Chronic (4) HTN (hypertension) ICD Codes: I10 - Essential (primary) hypertension Status: Chronic (5) Hyperlipidemia ICD Codes: E78.5 - Hyperlipidemia, unspecified Status: Chronic (6) Lumbar compression fracture ICD Codes: S32.000A - Wedge compression fracture of unspecified lumbar vertebra , initial encounter for closed fracture Status: Acute Ortiz Lewis MD Jan 21, 2018 09:13
[2018-01-21] MEDS ORDERED: HYDR2TAB PO (09:15)
[2018-01-21] MEDS ORDERED: AUGM500T7 PO (09:18)
[2018-01-21] MEDS ORDERED: PRED10 PO (09:18)
--- NOTE | 2018-01-21 09:18 | HHI.DCPOC ---
Discharge Care Plan Diagnosis: (1) Aspiration pneumonia Goals to Promote Your Health * To prevent worsening of your condition and complications * To maintain your health at the optimal level Directions to Meet Your Goals Take your medications as prescribed Follow your dietary instruction Follow activity as directed Keep your appointments as scheduled Take your immunizations and boosters as scheduled If your symptoms worsen call your PCP, if no PCP go to Urgent Care Center or Emergency Room Smoking is Dangerous to Your Health. Avoid second hand smoke Call the 24-hour hour crisis hotline for domestic abuse at Ortiz Lewis MD Jan 21, 2018 09:18
[2018-01-21] MEDS: RESP: ALBUTEROL 2.5 MG/IPRATROPIUM 0.5 MG NEB (SCH) NEB (09:29)
[2018-01-21] MEDS: PANTOPRAZOLE SOD 40 MG DELAYED RELEASE TAB PO SCH (09:39)
[2018-01-21] MEDS: SERTRALINE HCL 50 MG TAB PO SCH (09:40)
[2018-01-21] MEDS: GABAPENTIN 300 MG CAP PO SCH (09:40)
[2018-01-21] MEDS: amLODIPine BESYLATE 5 MG TAB PO SCH (09:40)
[2018-01-21] MEDS: TIOTROPIUM BROMIDE 18 MCG INH INH SCH (09:41)
[2018-01-21] MEDS: BUDESONIDE-FORMOTEROL 160/4.5 MCG INHALER INH SCH (09:41)
[2018-01-21 10:14] VITALS: RESP 18
== END 2018-01-21 11:30 | disposition home or self-care (01) | DRG 179 ==
LOC: NEPC 01:49 → NEDA 07:27 → HOCA 17:20
PROVIDERS: ADMIT Hospitalist; ATTEND Hospitalist
DX: J69.0 Pneumonitis due to inhalation of food and vomit (principal); J44.9 Chronic obstructive pulmonary disease, unspecified; I10 Essential (primary) hypertension; E78.5 Hyperlipidemia, unspecified; F41.9 Anxiety disorder, unspecified; M19.90 Unspecified osteoarthritis, unspecified site; R06.03 Acute respiratory distress; N40.0 Benign prostatic hyperplasia without lower urinary tract symptoms; R41.82 Altered mental status, unspecified; E78.00 Pure hypercholesterolemia, unspecified; G47.30 Sleep apnea, unspecified; M54.5 Low back pain; G89.29 Other chronic pain; S32.000D Wedge compression fracture of unspecified lumbar vertebra, subsequent encounter for fracture with routine healing; Z86.73 Personal history of transient ischemic attack (TIA), and cerebral infarction without residual deficits; Z86.79 Personal history of other diseases of the circulatory system
CPT/HCPCS: 36600; 71045; 71275; 80048; 80053; 82550; 82552; 82805; 83605; 83735; 83880; 84484; 85025; 85379; 85610; 85730; 87040; 87804; 93005; 94002; 94640; 94664; 96365; 96367; J2543; J2930; J3370; J7050; Q9967

== ENCOUNTER 2018-01-25 08:30 | Inpatient (IN) | payer MEDICARE ==
[~2018-01-25] VITALS: Ht 177.8 cm; Wt 106.7 kg
[~2018-01-25 08:30] MED LIST changes: -GABA300C5 PO; -HYDR2TAB PO
[2018-01-31] MEDS ORDERED: ZOLP10TA3 PO (15:34)
[2018-02-01] MEDS ORDERED: METOPROLOL TARTRATE 25 MG TAB PO PRN (06:00)
[2018-02-01] MEDS ORDERED: LACTATED RINGER'S 1000 ML IV PRN (06:00)
[2018-02-01] MEDS ORDERED: POVIDONE IODINE 5% (ANTISEPSIS KIT) 4 APPLICATIONS EACH NARE PRN (06:00)
[2018-02-01] MEDS ORDERED: SODIUM CHLORID 0.9% 500 ML IV PRN (06:00)
[2018-02-01] MEDS ORDERED: ceFAZolin 1,000 MG/NS 100 ML IV SCH ×2 (06:00)
[2018-02-01] MEDS ORDERED: LACTATED RINGER'S 1000 ML INJ 1,000 ML IV SCH (06:00)
[2018-02-01] MEDS ORDERED: CHLORHEXIDINE GLUCONATE 2 % 1 PACK (2 CLOTHS) TOPICAL PRN (06:00)
[2018-02-01] MEDS ORDERED: THROMBIN (TOPICAL) 5,000 UNIT VIAL ONE (07:27)
[2018-02-01] MEDS ORDERED: LIDOCAINE 1%/EPINEPHrine 1:100,000 SOLN 30 ML VIAL ONE (07:27)
[2018-02-01] MEDS ORDERED: GENTAMICIN SULFATE 80 MG/2 ML VIAL ONE (07:28)
[2018-02-01] MEDS ORDERED: GELFOAM SIZE 100 ONE (07:28)
[2018-02-01] MEDS ORDERED: LIDOCAINE 1%/EPINEPHrine 1:100,000 SOLN 50 ML VIAL ONE (07:28)
[2018-02-01] MEDS ORDERED: BUPIVACAINE LIPOSOME PF 1.3% 20 ML VIAL ONE (07:31)
[2018-02-01] MEDS ORDERED: PHENYLEPHRINE HCL 10 MG/ML VIAL IV ONE (12:00)
[2018-02-01] MEDS ORDERED: NEOSTIGMINE 5 MG/5 ML SYRINGE IV PUSH ONE (12:00)
[2018-02-01] MEDS ORDERED: ePHEDrine/NS 25 MG/5 ML SYRINGE IV ONE (12:00)
[2018-02-01] MEDS ORDERED: PROPOFOL 200 MG/20 ML AMP IV ONE (12:00)
[2018-02-01] MEDS ORDERED: GLYCOPYRROLATE 1 MG/5 ML SYRINGE IV PUSH ONE (12:00)
[2018-02-01] MEDS ORDERED: PHENYLEPH/NS 1000 MCG/10 ML SYR IV ONE (12:00)
[2018-02-01] MEDS ORDERED: ONDANSETRON HCL 4 MG/2 ML VIAL IV ONE (12:00)
[2018-02-01] MEDS ORDERED: LACTATED RINGER'S 1000 ML INJ 1,000 ML IV ONE (12:00)
[2018-02-01] MEDS ORDERED: LIDOCAINE HCL 1% PF 5 ML SYRINGE OTHER ONE (12:00)
[2018-02-01] MEDS ORDERED: DEXAMETHASONE SOD PHOS 4 MG/ML VIAL IV ONE (12:00)
[2018-02-01] MEDS ORDERED: ROCURONIUM INJ 50 MG/5 ML SYRINGE IV PUSH ONE (12:00)
[2018-02-01] MEDS ORDERED: ceFAZolin INJ 1,000 MG VIAL IV ONE (12:00)
[2018-02-01] MEDS ORDERED: ceFAZolin INJ 1,000 MG VIAL ONE (13:11)
[2018-02-01] MEDS ORDERED: BUPIVACAINE LIPOSOME PF 1.3% 20 ML VIAL INFIL ONE (13:23)
[2018-02-01] MEDS ORDERED: MIDAZOLAM HCL 2 MG/2 ML VIAL ONE ×2 (14:32)
[2018-02-01] MEDS ORDERED: ACETAMINOPHEN 1000 MG/100 ML 100 ML IV ONE (14:33)
[2018-02-01] MEDS ORDERED: FAMOTIDINE 20 MG/2 ML VIAL ONE (14:34)
[2018-02-01] MEDS ORDERED: PHENYLEPHRINE HCL 10 MG/ML VIAL ONE (14:34)
[2018-02-01] MEDS ORDERED: PROPOFOL 200 MG/20 ML AMP ONE (14:36)
[2018-02-01] MEDS ORDERED: BUPIVACAINE HCL PF 0.25% 30 ML VIAL ONE (15:24)
[2018-02-01] MEDS ORDERED: DO NOT ADM ANY ANTICOAGULANT DRUGS PRN (16:20)
[2018-02-01] MEDS ORDERED: *RESP: ALBUTEROL 2.5 MG/3 ML NEB (PRN) PERIprocedural Use ONLY NEB ONE (16:41)
[2018-02-01] MEDS ORDERED: ALBUTEROL SULFATE 90 MCG/ACT HFA 8 GM INHALER INH PRN (16:45)
[2018-02-01] MEDS ORDERED: NALOXONE HCL 0.4 MG/ML AMP IV PUSH PRN (17:00)
[2018-02-01] MEDS ORDERED: ONDANSETRON HCL 4 MG/2 ML VIAL IV PUSH PRN (17:00)
[2018-02-01] MEDS ORDERED: HYDROmorphone HCL PF 2 MG/ML VIAL IV PUSH PRN (17:00)
[2018-02-01] MEDS ORDERED: ACETAMINOPHEN/HYDROcodone 325 MG/5 MG TAB PO PRN (17:00)
--- NOTE | 2018-02-01 17:09 | RADRPT ---
EXAM DATE/TIME: 02/01/2018 10:00 [facility] COMPARISON: MRI LUMBAR SPINE W & W/O CONTRAST, November 15, 2017, 11:40. SPINE LUMBAR LTD (AP & LAT), December, 8:38. INDICATIONS : L4-5 posterior lumbar fusion with laminectomy. MEDICAL HISTORY : Hypertension. Chronic obstructive pulmonary disease. Osteoarthritis. GERD. Stroke. SURGICAL HISTORY : Appendectomy. Tonsillectomy. ENCOUNTER: Initial ACUITY: 1 day PAIN SCORE: Non-responsive. LOCATION: Lumbar spine. FINDINGS: 2 views in the operating room show laminectomy, discectomy and fusion procedure with interbody and po sterior instrumentation at L4/L5. Alignment is near-anatomic. No evidence of an acute complication. CONCLUSION: Expected appearance laminectomy and fusion at L4/L5. Delfino Sierra MD on February 01, 2018 at 17:06 Board Certified Radiologist. This report was verified electronically.
--- NOTE | 2018-02-01 17:09 | PD.OP ---
Operative Report Date of Surgery: Feb 01, 2018 Preoperative Diagnosis: (1) Lumbar canal stenosis (2) Spondylolisthesis of lumbar region (3) Lumbar radiculopathy 1. Grade 1 L4-L5 spondylolisthesis with bilateral spondylolysis. 2. L4 5 canal, lateral recess and foraminal stenosis 3. Left L4-5 radiculopathy 4. Severe chronic low back pain Postoperative Diagnosis: (1) Lumbar canal stenosis (2) Spondylolisthesis of lumbar region (3) Lumbar radiculopathy 1. Grade 1 L4-L5 spondylolisthesis with bilateral spondylolysis. 2. L4 5 canal, lateral recess and foraminal stenosis 3. Left L4-5 radiculopathy 4. Severe chronic low back pain Procedure: 1. Left L4 5 decompressive semi-laminectomy, facetectomy, foraminotomy 2. Left L4 5 discectomy, interbody fusion, PEEK cage , autograft bone and demineralized bone matrix 3. Bilateral L4-L5 posterior instrumentation, pedicle screw fixation 4. Intraoperative reduction grade 1 L4-L5 spondylolisthesis Anesthesia: Gen. endotracheal Surgeon: Jayme Eller Supervisor Files(s): Trixie Luu Operation and Findings: Findings: Significant left L4 5 facet instability related to pars defect. Severe lateral recess and foraminal stenosis. Procedure in detail The patient was brought to the operating room and general endotracheal anesthesia induced without difficulty Lines were established per Anesthesia Sequential compression devices were in place The patient was positioned prone on the concentric Kayden table with the side bolsters and all extremities appropriately padded Leads for intraoperative neuro monitoring were placed prior to positioning and a baseline study obtained Appropriate timeout procedure was performed with all personnel present and in agreement The lumbar region was shaved with clippers and sterilely prepped and draped Appropriate timeout procedure was performed with all personnel present and in agreement 1% Xylocaine with epinephrine was used for local infiltration over the incision site which was made approximately 6.5 cm lateral to the midline at the bilateral L4-L5 level and carried sharply down to the fascia. The fascia was sharply incised and finger dissection was used to separate the normal intermuscular plane at the bilateral L4-5 level, allowing direct palpation of the junction of the and pedicle and transverse process on each side. The entry point for the pedicle screws were determined by anatomic and radiographic landmarks. Using AP and lateral C-arm imaging, the Jamshidi needle was guided through the right L4 and L5 pedicle. The intraoperative C-arm imaging was used to verify appropriate Jamshidi needle placement. The wires were then placed through the Jamshidi needle cannulas, and the cannula was withdrawn. The wires were temporarily clipped away from the operative field. On the left side, the entry point for the pedicle screw at the L4 and L5 level was directly visualized and decorticated with the TPS drill following by preparation of the pedicle screw site with the pedicle finder, the tap, and the ball-tip probe to ensure no breakout along the pedicle. The 4.5 x 40 mm spine wave pedicle screw was then placed through the left L4 and L5 pedicles and checked with intraoperative C-arm and intraoperative EMG monitoring. On the left side Gonzalez elevator was used for subperiosteal elevation of paraspinous musculature and fascia away from the lamina and spinous processes The deep self-retaining retractor was placed The appropriate levels were verified with intraoperative C-arm The microscope was moved into place and used for the remainder of the procedure including the closure The TPS drill with a 5 mm bone bur followed by the Kerrison rongeur was used to remove the inferior two thirds of the lamina at the cephalad level of the decompression and the superior third of the lamina at the caudal level of the decompression. There was severe left L4 5 foraminal stenosis noted with quite a bit of adhesion along the exiting nerve root related to the pars defect. In order to fully decompress the left L4 nerve root, a near total removal of the left L4-L5 facet was required using the TPS drill and the Kerrison rongeur. Hypertrophied ligamentum flavum was elevated away from the thecal sac and exiting nerve roots with the thin ligament dissector and resected with a 15 blade knife and Kerrison rongeur. The thecal sac and exiting left L5 nerve root were freed up from surrounding adhesions with the microdissectors and gently retracted medially revealing the underlying disc and annulus. There was moderate subannular disc herniation. The annulus was incised with the 11 blade knife and discectomy performed with pituitary biopsy forceps and straight and angled curettes The endplate scrapers were used to decorticate the endplates and any remaining debris was removed with the antibiotic irrigation and suction and pituitary biopsy forceps The funnel was used to place a combination of cancellus autograft and demineralized bone matrix into the anterior lateral aspect of the L4 5 disc space. The appropriate size PEEK cage was packed with retained lamina cancellus autograft And a small amount of demineralized bone matrix The cage was placed at the L4 5 level with a good fit of the cage. The placement was checked under the microscope and with intraoperative C-arm and felt to be satisfactory. The thecal sac and nerve roots were probed with the long blunt nerve hook and felt to be well decompressed The cannulated 5.5 mm tap was then used to prepare the pedicle screw sites on the right side, with the dilators used to protect the surrounding tissue. The 6.5 diameter by 40 mm length Spine Wave Sniper percutaneous cannulated pedicle screw attached to the MIS extenders were placed into the right L4 and L5 pedicle using the existing guidewires which were then removed. Pedicle screw placement was checked with intraoperative C-arm imaging and felt to be satisfactory. The percutaneous rods were placed across the pedicle screws on each side. The locking caps were secured with the torque wrench and anti-torque device Compression and alignment were achieved as necessary with the rods and reducers. The L5 screws were locked in place first, and then the reducers were used to reduce the L4 5 spondylolisthesis prior to final tightening of the screws. The entire construct was checked with intraoperative C-arm and felt to be satisfactory The region was well irrigated with antibiotic irrigation The 7 mm flat fluted drain was left in place at the operative site and brought out through a incision at the upper lumbar region and secured to the skin with nylon suture and attached to sterile suction bleeding was carefully controlled with the bipolar forceps The closure was performed with 0 Vicryl interrupted for the deep and superficial fascia, with 3-0 Vicryl for the subcutaneous closure and 4-0 Vicryl running subcuticular closure. Dressings sterile Mastisol, Steri-Strips and Primapore was placed The patient was turned into supine position and taken to recovery room in stable condition All counts were correct at the end of the case Estimated blood loss was 250 cc No specimen was sent to pathology Neuro monitoring was stable during the procedure Jayme Eller MD Feb 01, 2018 17:08
[2018-02-01] MEDS: D5-1/2 NS + KCL 20 MEQ INJ 1,000 ML IV SCH (17:30)
[2018-02-01] MEDS: HYDROmorphone HCL PF 2 MG/ML VIAL IV PUSH PRN ×2 (18:09→21:21)
[2018-02-01 20:00] VITALS: BP 115/72; PULSE 100; RESP 16; TEMP 98.2; O2SAT 91
[2018-02-01] MEDS: BUDESONIDE-FORMOTEROL 160/4.5 MCG INHALER INH SCH (21:20)
[2018-02-01 21:21] VITALS: O2SAT 95
[2018-02-01] MEDS: SPIRONOLACTONE 25 MG TAB PO SCH (21:21)
[2018-02-01] MEDS: FAMOTIDINE 20 MG TAB PO SCH (21:21)
[2018-02-01] MEDS: POTASSIUM CHLORIDE 10 MEQ CAP PO SCH (21:21)
[2018-02-01] MEDS: METHOCARBAMOL 500 MG TAB PO SCH (21:21)
[2018-02-01] MEDS: LORATADINE 10 MG TAB PO SCH (21:21)
[2018-02-01] MEDS: MONTELUKAST SODIUM 10 MG TAB PO SCH (21:21)
[2018-02-01 22:00] VITALS: PULSE 104
[2018-02-02] VITALS (11 sets, daily range): BP systolic 113–140; BP diastolic 66–86; PULSE 88–108; RESP 13–24; TEMP 98.1–98.7; O2SAT 91–99
[2018-02-02] MEDS: HYDROmorphone HCL PF 2 MG/ML VIAL IV PUSH PRN ×2 (00:31→03:33)
[2018-02-02] MEDS: D5-1/2 NS + KCL 20 MEQ INJ 1,000 ML IV SCH (02:46)
[2018-02-02 05:42] LABS: AUTOMATED NEUTROPHIL # 14.5 TH/MM3 (1.8-7.7); BASOPHIL # 0.1 TH/MM3 (0-0.2); BASOPHIL % 0.4 % (0.0-2.0); HEMATOCRIT 34.5 % (39.0-51.0); HEMOGLOBIN 11.7 GM/DL (13.0-17.0); LYMPH % 4.6 % (9.0-44.0); LYMPHOCYTE # 0.8 TH/MM3 (1.0-4.8); MEAN CELL VOLUME 96.5 FL (80.0-100.0); MEAN CORPUSCULAR HEMOGLOBIN 32.6 PG (27.0-34.0); MEAN CORPUSCULAR HGB CONC 33.8 % (32.0-36.0); MEAN PLATELET VOLUME 10.8 FL (7.0-11.0); MONO % 6.1 % (0.0-8.0); NEUT % 88.9 % (16.0-70.0); PLATELET COUNT 185 TH/MM3 (150-450); RED BLOOD COUNT 3.58 MIL/MM3 (4.50-5.90); RED CELL DISTRIBUTION WIDTH 14.5 % (11.6-17.2); WHITE BLOOD COUNT 16.3 TH/MM3 (4.0-11.0)
[2018-02-02 05:47] LABS: PROTHROMBIN TIME - PATIENT 10.3 SEC (9.8-11.6)
[2018-02-02] MEDS: METHOCARBAMOL 500 MG TAB PO SCH ×3 (06:00→21:42)
[2018-02-02 06:06] LABS: BICARBONATE 28.8 MEQ/L (21.0-32.0); CALCIUM 8.1 MG/DL (8.5-10.1); CREATININE 0.96 MG/DL (0.60-1.30)
[2018-02-02] MEDS: TIOTROPIUM BROMIDE 18 MCG INH INH SCH (08:18)
[2018-02-02] MEDS: SPIRONOLACTONE 25 MG TAB PO SCH ×2 (08:18→21:42)
[2018-02-02] MEDS: FAMOTIDINE 20 MG TAB PO SCH ×2 (08:18→21:42)
[2018-02-02] MEDS: predniSONE 5 MG TAB PO SCH (08:18)
[2018-02-02] MEDS: amLODIPine BESYLATE 5 MG TAB PO SCH (08:18)
[2018-02-02] MEDS: MULTIVITAMIN TAB PO SCH (08:18)
[2018-02-02] MEDS: oxyCODONE/ACETAMINOPHEN 10 MG/325 MG TAB PO PRN ×2 (08:18→16:12)
[2018-02-02] MEDS: SERTRALINE HCL 50 MG TAB PO SCH (08:18)
[2018-02-02] MEDS: LORATADINE 10 MG TAB PO SCH ×2 (08:18→21:43)
[2018-02-02] MEDS: VITAMIN B CMPLX/VITC/FOLIC AC CAP PO SCH (08:19)
[2018-02-02] MEDS: POTASSIUM CHLORIDE 10 MEQ CAP PO SCH ×2 (08:19→21:00)
[2018-02-02] MEDS: BUDESONIDE-FORMOTEROL 160/4.5 MCG INHALER INH SCH ×2 (08:20→21:00)
--- NOTE | 2018-02-02 08:38 | PD.CONS ---
HPI Service [facility] Hospitalists Consult Requested By Primary Care Physician Carlos Alberto Nelson MD Diagnoses: History of Present Illness Patient is 67 year old with low back pain admitted from the OR on 02/[address] Eller performed a Left L4/L5 decompressive semi-laminectomy, facetectomy, foraminotomy , Left L4/L5 discectomy and interbody fusion. Operative finding were significant left L4 /5 facet instability related to pars defect. Severe lateral recess and foraminal stenosis.Grade 1 L4-L5 spondylolisthesis with bilateral spondylolysis. Also L4 /5 canal, lateral recess and foraminal stenosis causing Left L4-5 radiculopathy and Severe chronic low back pain. Pt was moved into ICU overnight due to post op hypoxia and requiring high flow o2. This morning pt denies sob and asking for food. He tolerated liquid diet overnight. - Patient had hx hospitalization for subdural hematoma and craniotomy, and hospitalizations and ER visits for alcoholism. Patient's last visit to the ER with acute intoxication was 09/22/17. He recently underwent bilateral L1 kyphoplasty with intraoperative biplanar fluoroscopic imaging with Dr. Jayme Eller on 12/06/17. Review of Systems Other LBP and radiculopathy Past Family Social History Past Medical History COPD Alcohol these Hypertension Hyperlipidemia Anxiety disorder Osteoarthritis Chronic low back pain BPH History of abdominal aortic aneurysm Past Surgical History Bilateral L1 kyphoplasty with intraoperative biplanar fluoroscopic imaging, Dr. Jayme Eller on 12/06/17 Left craniotomy for evacuation of subdural hematoma, December 2015 Cervical spine surgery Multiple orthopedic surgeries including left knee arthroplasty and left wrist surgery unspecified Appendectomy Reported Medications Zolpidem (Zolpidem Tartrate) 10 Mg Tab 10 Mg PO HS PRN Prednisone 2.5 Mg Tab 2.5 Mg PO DAILY Spironolactone 25 Mg Tab 25 Mg PO BID Oxygen (O2) Device Liter SRINATH.CANULA PRN PRN Oxygen Concentrator Portable Gaseous 2 L/min via Nasal Canula Continuous For 99 months Vitamin B Complex (B-Complex Vitamins) 1 Tab 1 Tab PO DAILY Ventolin Hfa 18 GM Inh (Albuterol Sulfate) 90 Mcg/Act Aer 2 Puff INH Q6H PRN Sertraline (Sertraline HCl) 50 Mg Tab 50 Mg PO DAILY Potassium Chloride ER (Potassium Chloride) 10 Meq Cap 10 Meq PO BID Multiple Vitamin 1 Tab 1 Tab PO DAILY Cholestyramine 4 Gm/Dose Powd 4 Gm PO BID PRN 1 level scoopful of powder contains 4 grams of cholestyramine. Spiriva Handihaler (Tiotropium Inh) 18 Mcg Cap 18 Mcg INH DAILY 1 capsule = 18 mcg Zantac (Ranitidine HCl) 150 Mg Tab 150 Mg PO BID Singulair (Montelukast Sodium) 10 Mg Tab 10 Mg PO HS Alprazolam 1 Mg Tab 2 Mg PO BID PRN Jessica Allergy (Fexofenadine HCl) 180 Mg Tab 180 Mg PO BID Amlodipine (Amlodipine Besylate) 5 Mg Tab 5 Mg PO DAILY Advair Diskus Inh (Fluticasone-Salmeterol Inh) 250-50 Mcg/Blist Aer 1 Puff INH BID Rinse mouth after use. Allergies: Coded Allergies: aspirin (Verified Allergy, Severe, ANAPHYLACTIC SHOCK, 02/01/18) SHOCK diclofenac (Verified Allergy, Severe, ANAPHYLACTIC SHOCK, 02/01/18) SHOCK etodolac (Verified Allergy, Severe, ANAPHYLACTIC SHOCK, 02/01/18) SHOCK flurbiprofen (Verified Allergy, Severe, ANAPHYLACTIC SHOCK, 02/01/18) SHOCK ibuprofen (Verified Allergy, Severe, ANAPHYLACTIC SHOCK, 02/01/18) SHOCK indomethacin (Verified Allergy, Severe, ANAPHYLACTIC SHOCK, 02/01/18) SHOCK ketoprofen (Verified Allergy, Severe, ANAPHYLACTIC SHOCK, 02/01/18) SHOCK ketorolac (Verified Allergy, Severe, ANAPHYLACTIC SHOCK, 02/01/18) SHOCK naproxen (Verified Allergy, Severe, ANAPHYLACTIC SHOCK, 02/01/18) SHOCK oxaprozin (Verified Allergy, Severe, ANAPHYLACTIC SHOCK, 02/01/18) SHOCK lisinopril (Verified Allergy, Mild, "MAKES MY FACE SWELL UP AND PREVENTS ME FROM BREATHING", 02/01/18) Family History NC Social History Hx of heavy alcohol use, 1 pint of vodka daily. Per patient he quit drinking in September 2017 Current smoker Physical Exam Vital Signs lying in bed has back brace heart reg lung cta abd bs ext no edema able to information manager lower ext and wiggle feet and toes easily Vital Signs Date Time Temp Pulse Resp B/P (MAP) Pulse Ox O2 Delivery O2 Flow Rate FiO2 02/02/18 06:00 90 02/02/18 04:57 97 Simple Mask 8.00 02/02/18 04:00 88 02/02/18 04:00 98.5 88 13 129/76 (93) 98 02/02/18 02:00 108 02/02/18 00:00 98.1 100 24 125/67 (86) 91 02/02/18 00:00 100 02/01/18 22:00 104 02/01/18 21:21 95 Nasal Cannula 6.00 02/01/18 20:00 98.2 100 16 115/72 (86) 91 02/01/18 20:00 100 02/01/18 19:00 Nasal Cannula 6.00 02/01/18 17:40 97.8 96 15 127/78 (94) 93 Simple Mask 8 02/01/18 17:30 97 15 119/73 (88) 92 Simple Mask 8 02/01/18 17:15 95 15 123/74 (90) 92 Simple Mask 8 02/01/18 17:00 98 15 120/71 (87) 92 Simple Mask 8 02/01/18 16:45 95 15 122/76 (91) 91 Simple Mask 7 02/01/18 16:30 93 15 123/75 (91) 92 Simple Mask 7 02/01/18 16:15 98.6 95 20 123/74 (90) 94 Simple Mask 10 Laboratory Laboratory Tests Test 02/01/18 11:00 02/01/18 14:03 02/02/18 05:26 Blood Gas Puncture Site DRAWN IN OR DRAWN IN OR Blood Gas Patient Temperature 98.6 98.6 Blood Gas HCO3 26 25 Blood Gas Base Excess 2.2 1.2 Blood Gas Oxygen Saturation 96 96 Arterial Blood pH 7.41 7.41 Arterial Blood Partial Pressure CO2 42 40 Arterial Blood Partial Pressure O2 154 166 Arterial Blood Oxygen Content 15.9 16.4 Arterial Blood Carboxyhemoglobin 1.5 1.4 Arterial Blood Methemoglobin 1.5 1.4 Blood Gas Hemoglobin 11.6 11.9 Oxygen Delivery Device OR OR Blood Gas Inspired Oxygen 50 White Blood Count 16.3 Red Blood Count 3.58 Hemoglobin 11.7 Hematocrit 34.5 Mean Corpuscular Volume 96.5 Mean Corpuscular Hemoglobin 32.6 Mean Corpuscular Hemoglobin Concent 33.8 Red Cell Distribution Width 14.5 Platelet Count 185 Mean Platelet Volume 10.8 Neutrophils (%) (Auto) 88.9 Lymphocytes (%) (Auto) 4.6 Monocytes (%) (Auto) 6.1 Eosinophils (%) (Auto) 0.0 Basophils (%) (Auto) 0.4 Neutrophils # (Auto) 14.5 Lymphocytes # (Auto) 0.8 Monocytes # (Auto) 1.0 Eosinophils # (Auto) 0.0 Basophils # (Auto) 0.1 CBC Comment DIFF FINAL Differential Comment Prothrombin Time 10.3 Prothromb Time International Ratio 1.0 Activated Partial Thromboplast Time 24.0 Blood Urea Nitrogen 14 Creatinine 0.96 Random Glucose 168 Calcium Level 8.1 Sodium Level 140 Potassium Level 4.5 Chloride Level 104 Carbon Dioxide Level 28.8 Anion Gap 7 Estimat Glomerular Filtration Rate 78 Result Diagram: 02/02/1852502/02/18525 Assessment and Plan Problem List: (1) Lumbar radiculopathy ICD Codes: M54.16 - Radiculopathy, lumbar region Status: Acute Plan: Patient is 67 year old with low back pain admitted from the OR on 02/[address] Eller performed a Left L4/L5 decompressive semi-laminectomy, facetectomy, foraminotomy , Left L4/L5 discectomy and interbody fusion. Operative finding were significant left L4 /5 facet instability related to pars defect. Severe lateral recess and foraminal stenosis.Grade 1 L4-L5 spondylolisthesis with bilateral spondylolysis. Also L4 /5 canal, lateral recess and foraminal stenosis causing Left L4-5 radiculopathy and Severe chronic low back pain. Pt was moved into ICU overnight due to post op hypoxia and requiring high flow o2. This morning pt denies sob and asking for food. He tolerated liquid diet overnight. pain meds ordered prn per nsg. prn percocet and dilaudid PT eval dvt prophylaxis advance diet wean oxygen transfer to med/surg (2) COPD (chronic obstructive pulmonary disease) ICD Codes: J44.9 - Chronic obstructive pulmonary disease, unspecified Status: Chronic Plan: cont chronic prednisone dose cont symbicort/spiriva wean oxygen prn nebs (3) HTN (hypertension) ICD Codes: I10 - Essential (primary) hypertension Status: Chronic Plan: cont Ortiz Barakat MD Feb 02, 2018 08:38
[2018-02-02] MEDS: MONTELUKAST SODIUM 10 MG TAB PO SCH (21:42)
--- NOTE | 2018-02-02 23:23 | HHI.NSPN ---
History Chief Complaint: moderate low back pain Interval History 02/01/18 L4 5 laminectomy interbody fusion Exam Results Vital Signs Date Time Temp Pulse Resp B/P (MAP) Pulse Ox O2 Delivery O2 Flow Rate FiO2 02/02/18 16:00 96 02/02/18 16:00 98.7 20 113/66 (82) 99 02/02/18 08:39 Nasal Cannula 4.00 Intake and Output 02/02/18 02/02/18 02/02/18 07:59 15:59 23:59 Intake Total 1480 ml 265 ml 840 ml Output Total 1510 ml 1500 ml Balance -30 ml 265 ml -660 ml Physical Examination Respirations clear and regular Pulse regular Abdomen soft No lower extremity edema Moderate drain output Dressing dry and intact Sensation intact lower extremities Motor function intact lower extremities Lab, Micro, Other Results Laboratory Tests Test 02/02/18 05:26 White Blood Count 16.3 TH/MM3 Red Blood Count 3.58 MIL/MM3 Hemoglobin 11.7 GM/DL Hematocrit 34.5 % Mean Corpuscular Volume 96.5 FL Mean Corpuscular Hemoglobin 32.6 PG Mean Corpuscular Hemoglobin Concent 33.8 % Red Cell Distribution Width 14.5 % Platelet Count 185 TH/MM3 Mean Platelet Volume 10.8 FL Neutrophils (%) (Auto) 88.9 % Lymphocytes (%) (Auto) 4.6 % Monocytes (%) (Auto) 6.1 % Eosinophils (%) (Auto) 0.0 % Basophils (%) (Auto) 0.4 % Neutrophils # (Auto) 14.5 TH/MM3 Lymphocytes # (Auto) 0.8 TH/MM3 Monocytes # (Auto) 1.0 TH/MM3 Eosinophils # (Auto) 0.0 TH/MM3 Basophils # (Auto) 0.1 TH/MM3 CBC Comment DIFF FINAL Differential Comment Prothrombin Time 10.3 SEC Prothromb Time International Ratio 1.0 RATIO Activated Partial Thromboplast Time 24.0 SEC Blood Urea Nitrogen 14 MG/DL Creatinine 0.96 MG/DL Random Glucose 168 MG/DL Calcium Level 8.1 MG/DL Sodium Level 140 MEQ/L Potassium Level 4.5 MEQ/L Chloride Level 104 MEQ/L Carbon Dioxide Level 28.8 MEQ/L Anion Gap 7 MEQ/L Estimat Glomerular Filtration Rate 78 ML/MIN Medical Decision Making Impression and Plan Impression: 1. Stable neurologic exam postop Pain adequately controlled No no significant pulmonary problems evident on postop day #1 Plan: Discussed with patient Transfer to floor Physical therapy Increase diet and activity Continue DESTINIO Jayme Diego MD Feb 02, 2018 23:23
[2018-02-02] MEDS: ALPRAZolam 1 MG TAB PO PRN (23:46)
[2018-02-02] MEDS: ZOLPIDEM TARTRATE 10 MG TAB PO PRN (23:46)
[2018-02-03] VITALS (8 sets, daily range): BP systolic 110–125; BP diastolic 60–76; PULSE 87–101; RESP 18–20; TEMP 98.4–99.9; O2SAT 93–96
[2018-02-03] MEDS: METHOCARBAMOL 500 MG TAB PO SCH ×3 (05:00→20:59)
[2018-02-03] MEDS: oxyCODONE/ACETAMINOPHEN 10 MG/325 MG TAB PO PRN ×3 (05:00→16:39)
[2018-02-03] MEDS: MORPHINE SULFATE 2 MG/ML SYRINGE IV PUSH PRN ×3 (08:36→20:55)
[2018-02-03] MEDS: VITAMIN B CMPLX/VITC/FOLIC AC CAP PO SCH (08:38)
[2018-02-03] MEDS: FAMOTIDINE 20 MG TAB PO SCH ×2 (08:38→20:58)
[2018-02-03] MEDS: LORATADINE 10 MG TAB PO SCH ×2 (08:38→20:58)
[2018-02-03] MEDS: predniSONE 5 MG TAB PO SCH (08:38)
[2018-02-03] MEDS: amLODIPine BESYLATE 5 MG TAB PO SCH (08:38)
[2018-02-03] MEDS: SERTRALINE HCL 50 MG TAB PO SCH (08:38)
[2018-02-03] MEDS: MULTIVITAMIN TAB PO SCH (08:39)
[2018-02-03] MEDS: SPIRONOLACTONE 25 MG TAB PO SCH ×2 (08:39→20:58)
[2018-02-03] MEDS: POTASSIUM CHLORIDE 10 MEQ CAP PO SCH ×2 (09:10→20:59)
[2018-02-03] MEDS: BUDESONIDE-FORMOTEROL 160/4.5 MCG INHALER INH SCH ×2 (09:11→21:01)
[2018-02-03] MEDS: TIOTROPIUM BROMIDE 18 MCG INH INH SCH (09:11)
--- NOTE | 2018-02-03 10:13 | HHI.PR ---
Subjective Remarks was oob yesterday with PT says he was in alot of pain. Objective Vitals heart reg lung cta abd s/nt ext no edema Vital Signs Date Time Temp Pulse Resp B/P (MAP) Pulse Ox O2 Delivery O2 Flow Rate FiO2 02/03/18 08:20 99.1 90 20 125/60 (81) 93 02/03/18 05:00 99.6 101 18 121/65 (83) 02/03/18 04:58 94 Nasal Cannula 3.00 02/03/18 04:57 96 3.00 02/03/18 00:00 99.9 95 18 121/76 (91) 95 02/02/18 21:00 98.7 89 18 130/71 (90) 97 02/02/18 16:00 96 02/02/18 16:00 98.7 96 20 113/66 (82) 99 02/02/18 12:00 100 02/02/18 12:00 98.5 100 14 132/74 (93) 95 Result Diagram: 02/02/1852502/02/18 05 A/P Problem List: (1) Lumbar radiculopathy ICD Codes: M54.16 - Radiculopathy, lumbar region Status: Acute Plan: Patient is 67 year old with low back pain admitted from the OR on 02/[address] Eller performed a Left L4/L5 decompressive semi-laminectomy, facetectomy, foraminotomy , Left L4/L5 discectomy and interbody fusion. Operative finding were significant left L4 /5 facet instability related to pars defect. Severe lateral recess and foraminal stenosis.Grade 1 L4-L5 spondylolisthesis with bilateral spondylolysis. Also L4 /5 canal, lateral recess and foraminal stenosis causing Left L4-5 radiculopathy and Severe chronic low back pain. Pt was moved into ICU overnight due to post op hypoxia and requiring high flow o2. This morning pt denies sob and asking for food. He tolerated liquid diet overnight. pain meds ordered prn per nsg. prn percocet and dilaudid PT eval dvt prophylaxis tolerating diet wean oxygen d/c when ok with med/surg. might need snf. (2) COPD (chronic obstructive pulmonary disease) ICD Codes: J44.9 - Chronic obstructive pulmonary disease, unspecified Status: Chronic Plan: cont chronic prednisone dose cont symbicort/spiriva wean oxygen prn nebs (3) HTN (hypertension) ICD Codes: I10 - Essential (primary) hypertension Status: Chronic Plan: cont Ortiz Barakat MD Feb 03, 2018 10:13
[2018-02-03] MEDS: MONTELUKAST SODIUM 10 MG TAB PO SCH (20:58)
--- NOTE | 2018-02-03 21:44 | HHI.NSPN ---
History Chief Complaint: moderate low back pain Interval History 02/01/18 L4 5 laminectomy interbody fusion Exam Results Vital Signs Date Time Temp Pulse Resp B/P (MAP) Pulse Ox O2 Delivery O2 Flow Rate FiO2 02/03/18 20:35 98.4 90 18 114/74 (87) 94 02/03/18 17:57 Nasal Cannula 3.00 Intake and Output 02/03/18 02/03/18 02/04/18 08:00 16:00 00:00 Intake Total 720 ml Output Total 300 ml 625 ml 200 ml Balance -300 ml -625 ml 520 ml Physical Examination Respirations clear and regular Pulse regular Abdomen soft No lower extremity edema Moderate drain output Dressing dry and intact Sensation intact lower extremities Motor function intact lower extremities Medical Decision Making Impression and Plan Impression: 1. Stable neurologic exam postop Pain adequately controlled No no significant pulmonary problems postoperative Plan: Physical therapy notes reviewed. Inpatient rehabilitation recommended Case management consultation placed Increase diet and activity Continue DESTINIO Jayme Diego MD Feb 03, 2018 21:44
[2018-02-04 00:07] VITALS: BP 135/79; PULSE 93; RESP 18; TEMP 98.4; O2SAT 96
[2018-02-04] MEDS: oxyCODONE/ACETAMINOPHEN 10 MG/325 MG TAB PO PRN ×4 (02:36→14:26)
[2018-02-04] MEDS: ZOLPIDEM TARTRATE 10 MG TAB PO PRN (02:41)
[2018-02-04] MEDS: ALPRAZolam 1 MG TAB PO PRN (02:41)
[2018-02-04 04:49] VITALS: BP 103/65; PULSE 101; RESP 18; TEMP 98.1; O2SAT 96
[2018-02-04] MEDS: MORPHINE SULFATE 2 MG/ML SYRINGE IV PUSH PRN (06:26)
[2018-02-04] MEDS: METHOCARBAMOL 500 MG TAB PO SCH ×2 (06:26→14:26)
[2018-02-04 07:50] VITALS: BP 123/78; PULSE 90; RESP 20; TEMP 98.9; O2SAT 94
[2018-02-04] MEDS: FAMOTIDINE 20 MG TAB PO SCH (08:43)
[2018-02-04] MEDS: MULTIVITAMIN TAB PO SCH (08:43)
[2018-02-04] MEDS: amLODIPine BESYLATE 5 MG TAB PO SCH (08:44)
[2018-02-04] MEDS: predniSONE 5 MG TAB PO SCH (08:44)
[2018-02-04] MEDS: SPIRONOLACTONE 25 MG TAB PO SCH (08:44)
[2018-02-04] MEDS: VITAMIN B CMPLX/VITC/FOLIC AC CAP PO SCH (08:45)
[2018-02-04] MEDS: SERTRALINE HCL 50 MG TAB PO SCH (08:45)
[2018-02-04] MEDS: POTASSIUM CHLORIDE 10 MEQ CAP PO SCH (08:45)
[2018-02-04] MEDS: LORATADINE 10 MG TAB PO SCH (08:45)
[2018-02-04] MEDS: TIOTROPIUM BROMIDE 18 MCG INH INH SCH (08:47)
[2018-02-04] MEDS: BUDESONIDE-FORMOTEROL 160/4.5 MCG INHALER INH SCH (08:47)
--- NOTE | 2018-02-04 09:01 | HHI.DCPOC ---
Discharge Care Plan Diagnosis: (1) Lumbar radiculopathy (2) Lumbar canal stenosis (3) Spondylolisthesis of lumbar region Your Health Problems Are: Difficulty with ADL Incision/Drains Exercise Tolerance Chronic Pain Goals to Promote Your Health * To prevent worsening of your condition and complications * To maintain your health at the optimal level Directions to Meet Your Goals Take your medications as prescribed Follow your dietary instruction Follow activity as directed Keep your appointments as scheduled Take your immunizations and boosters as scheduled If your symptoms worsen call your PCP, if no PCP go to Urgent Care Center or Emergency Room Smoking is Dangerous to Your Health. Avoid second hand smoke Call the 24-hour hour crisis hotline for domestic abuse at Jayme Eller MD Feb 04, 2018 09:01
[2018-02-04] MEDS ORDERED: OXYC1TAB36 PO (09:04)
[2018-02-04 10:31] VITALS: O2SAT 95
[2018-02-04 12:26] VITALS: BP 119/76; PULSE 100; RESP 20; TEMP 98.8; O2SAT 93
[2018-02-04] MEDS ORDERED: MORP1TAB24 PO (16:35)
--- NOTE | 2018-02-04 16:43 | HHI.DS ---
Discharge Summary Admission Date Feb 01, 2018 at 05:26 Discharge Date: Feb 04, 2018 Admitting Diagnosis L4 5 spondylolisthesis with bilateral spondylolysis. Lumbar radiculopathy Severe chronic low back pain (1) Lumbar radiculopathy Diagnosis: Principal ICD Code: M54.16 - Radiculopathy, lumbar region Status: Acute (2) COPD (chronic obstructive pulmonary disease) Diagnosis: Secondary ICD Code: J44.9 - Chronic obstructive pulmonary disease, unspecified Status: Chronic (3) HTN (hypertension) Diagnosis: Secondary ICD Code: I10 - Essential (primary) hypertension Status: Chronic Procedures 02/01/18: L4 5 laminectomy interbody fusion posterior instrumentation CBC/BMP: 02/02/18 0526 02/02/18 0526 Significant Findings Laboratory Tests Test 02/02/18 05:26 White Blood Count 16.3 TH/MM3 (4.0-11.0) Red Blood Count 3.58 MIL/MM3 (4.50-5.90) Hemoglobin 11.7 GM/DL (13.0-17.0) Hematocrit 34.5 % (39.0-51.0) Neutrophils (%) (Auto) 88.9 % (16.0-70.0) Lymphocytes (%) (Auto) 4.6 % (9.0-44.0) Neutrophils # (Auto) 14.5 TH/MM3 (1.8-7.7) Lymphocytes # (Auto) 0.8 TH/MM3 (1.0-4.8) Monocytes # (Auto) 1.0 TH/MM3 (0-0.9) Activated Partial Thromboplast Time 24.0 SEC (24.3-30.1) Random Glucose 168 MG/DL (74-106) Calcium Level 8.1 MG/DL (8.5-10.1) Estimat Glomerular Filtration Rate 78 ML/MIN (>89) Hospital Course Patient admitted for the above noted procedure performed without complication. Satisfactory initial progress. No residual lower extremity pain or deficit postoperatively. Medical consultation placed to assist with postoperative medical management. Physical therapy initiated. Patient debilitated preoperatively on a chronic basis, lives alone, pre-existing pulmonary disease, all necessitating post discharge and patient continued medical management and physical therapy. Discharge to [facility] 02/04/2018 Pt Condition on Discharge: Stable Discharge Disposition: Discharge to SNF Discharge Instructions DIET: Follow Instructions for: As Tolerated, No Restrictions ACTIVITIES You can perform: Weight Bearing As Crow Activities to Avoid: Lifting/Bending, Strenuous Activity New Medications: Morphine ER (Morphine ER) 15 Mg Tab 15 MG PO Q12H for Pain Management, #30 TAB 0 Refills Oxycodone HCl/Acetaminophen (Oxycodone-Acetaminophen 10-325) 10 Mg-325 Mg Tablet 1 TAB PO Q6H PRN for PAIN SCALE 6 TO 10, #60 TAB 0 Refills Continued Medications: Albuterol 18 GM Inh (Ventolin Hfa 18 GM Inh) 90 Mcg/Act Aer 2 PUFF INH Q6H PRN for SHORTNESS OF BREATH, #1 INHALER 0 Refills Alprazolam (Alprazolam) 1 Mg Tab 2 MG PO BID PRN for ANXIETY, TAB 0 Refills Amlodipine (Amlodipine) 5 Mg Tab 5 MG PO DAILY for Blood Pressure Management, #30 TAB 0 Refills B-Complex Vitamins (Vitamin B Complex) 1 Tab 1 TAB PO DAILY Cholestyramine (Cholestyramine) 4 Gm/Dose Powd 4 GM PO BID PRN for dyslipidemia, #1 CAN 0 Refills 1 level scoopful of powder contains 4 grams of cholestyramine. Fexofenadine (Jessica Allergy) 180 Mg Tab 180 MG PO BID for Allergy Management, #30 TAB 0 Refills Fluticasone-Salmeterol Inh (Advair Diskus Inh) 250-50 Mcg/Blist Aer 1 PUFF INH BID, #1 INHALER 0 Refills Rinse mouth after use. Montelukast (Singulair) 10 Mg Tab 10 MG PO HS, #30 TAB 0 Refills Multiple Vitamin (Multiple Vitamin) 1 Tab 1 TAB PO DAILY for Nutritional Supplement, TAB 0 Refills Oxygen (O2) (Oxygen (O2)) Device LITER SRINATH.CANULA PRN PRN for SHORTNESS OF BREATH, #2 Oxygen Concentrator Portable Gaseous 2 L/min via Nasal Canula Continuous For 99 months Potassium Chloride ER (Potassium Chloride ER) 10 Meq Cap 10 MEQ PO BID for Electrolyte Replacement, #60 CAP 0 Refills Prednisone (Prednisone) 2.5 Mg Tab 2.5 MG PO DAILY, TAB 0 Refills Ranitidine (Zantac) 150 Mg Tab 150 MG PO BID for Reduce Stomach Acid, #60 TAB 0 Refills Sertraline (Sertraline) 50 Mg Tab 50 MG PO DAILY, #30 TAB 0 Refills Spironolactone (Spironolactone) 25 Mg Tab 25 MG PO BID, #30 TAB 0 Refills Tiotropium Inh (Spiriva Handihaler) 18 Mcg Cap 18 MCG INH DAILY for COPD, #30 CAP 0 Refills 1 capsule = 18 mcg Zolpidem (Zolpidem) 10 Mg Tab 10 MG PO HS PRN for INSOMNIA, TAB 0 Refills Jayme Eller MD Feb 04, 2018 16:43
[2018-02-04] MEDS ORDERED: MORPHINE SULFATE 15 MG CONTROLLED RELEASE TAB PO SCH (18:00)
== END 2018-02-04 17:09 | DRG 460 ==
LOC: EDSTATUS 08:30 → HSDI 02-01 05:26 → N03A 02-01 17:48 → N05A 02-02 19:48
PROVIDERS: ADMIT Neurological Surgery; ATTEND Neurological Surgery
PROC: 0ST20ZZ Resection of Lumbar Vertebral Disc, Open Approach (ICD-10-PCS; 2018-02-01)
PROC: 0SG00AJ Fusion of Lumbar Vertebral Joint with Interbody Fusion Device, Posterior Approach, Anterior Column, Open Approach (ICD-10-PCS; principal; 2018-02-01 08:35)
DX: M43.16 Spondylolisthesis, lumbar region (principal); J44.9 Chronic obstructive pulmonary disease, unspecified; I10 Essential (primary) hypertension; M54.16 Radiculopathy, lumbar region; M48.061 Spinal stenosis, lumbar region without neurogenic claudication; G89.29 Other chronic pain; R09.02 Hypoxemia; E78.5 Hyperlipidemia, unspecified; M19.90 Unspecified osteoarthritis, unspecified site; F41.9 Anxiety disorder, unspecified; N40.0 Benign prostatic hyperplasia without lower urinary tract symptoms; Z86.79 Personal history of other diseases of the circulatory system; Z79.52 Long term (current) use of systemic steroids; Z87.891 Personal history of nicotine dependence
CPT/HCPCS: 72100; 76000; 80048; 82805; 85025; 85610; 85730; 86850; 86900; 86901; 94150; 94664; C1713; C9290; J0131; J0690; J1100; J1170; J1580; J2250; J2270; J2370; J2405; J2710; J3010; J3480; J7120; J7512; J7613; L0200; L0484

== ENCOUNTER 2018-02-11 00:11 | Emergency (ER) | payer MEDICARE ==
[~2018-02-11] VITALS: Ht 177.8 cm; Wt 96.0 kg
[~2018-02-11 00:11] MED LIST changes: +MORP1TAB24 PO; +OXYC1TAB36 PO; +ZOLP10TA3 PO
[2018-02-11 00:22] VITALS: BP 137/85; PULSE 90; RESP 16; TEMP 99.2; O2SAT 90
[2018-02-11] MEDS ORDERED: SODIUM CHLORIDE 0.9% FLUSH 10 ML FLUSH IV FLUSH PRN (01:30)
--- NOTE | 2018-02-11 02:19 | PD ---
HPI Chief Complaint: Injury Time Seen by Provider: 00:47 Travel History International Travel<30 days: No Contact w/Intl Traveler<30days: No Traveled to known affect area: No History of Present Illness HPI 67-year-old male arrives with complaint of bleeding from the penis. He reports getting up from bed to use the bathroom in the middle the night and he noticed blood on the floor. He noticed small amount of blood at the urethral meatus. And upon walking to the bathroom observed even more blood on the floor. He denies dysuria. He denies frequency. No nausea vomiting or fever. He has had no difficulty with urination lately. He is currently at SN/rehab facility due to spine surgery. 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) Cardiovascular Problems: Yes (AAA) High Cholesterol: Yes Chemotherapy: No Chest Pain: No Congestive Heart Failure: No COPD: Yes Cerebrovascular Accident: Yes Diabetes: No Diminished Hearing: No Endocrine: No Gastrointestinal Disorders: Yes (acid reflux) GERD: No Glaucoma: No Genitourinary: Yes (WEAK HOLD, PROSTATE ISSUES) Headaches: Yes Hepatitis: No Hiatal Hernia: No Heparin Induced Thrombocytopen: No Hypertension: Yes (chol) Immune Disorder: No Kidney Stones: Yes Musculoskeletal: Yes (chronic BACK PAIN, VERTEBRAE FX, OA) Neurologic: No Psychiatric: Yes (anx) Reproductive: No Respiratory: Yes (COPD, recent asp PNA) Immunizations Current: Yes Migraines: No Myocardial Infarction: No Radiation Therapy: No Renal Failure: No Seizures: No Sickle Cell Disease: No Sleep Apnea: Yes Thyroid Disease: No Ulcer: No Past Surgical History Abdominal Surgery: Yes (appendectomy) AICD: No Appendectomy: Yes Arteriovenous Shunt: No Body Medical Devices: HARDWARE IN RIGHT FOOT, 3 CAGES IN SPINE, CERVICLE SCREWS Cardiac Surgery: No Cholecystectomy: No Ear Surgery: No Endocrine Surgery: No Eye Surgery: Yes (CATARACTS GEN. ) Genitourinary Surgery: No Gynecologic Surgery: No Insulin Pump: No Joint Replacement: Yes (LEFT knee) Neurologic Surgery: Yes (EVACUATION OF subdural hematoma, CERVICAL CAGES PLACED , craniotomy ) Oral Surgery: Yes (T&A) Pacemaker: No Thoracic Surgery: Yes (growth removed from L side of chest under arm) Tonsillectomy: Yes Other Surgery: Yes (craniatomy,appendectomy, CTS surgery, 19 sinus surgeries) Social History Alcohol Use: No (QUIT) Tobacco Use: No (QUIT 1999, had smoked 46 years.) Substance Use: No Allergies-Medications (Allergen,Severity, Reaction): Coded Allergies: aspirin (Verified Allergy, Severe, ANAPHYLACTIC SHOCK, 02/01/18) SHOCK diclofenac (Verified Allergy, Severe, ANAPHYLACTIC SHOCK, 02/01/18) SHOCK etodolac (Verified Allergy, Severe, ANAPHYLACTIC SHOCK, 02/01/18) SHOCK flurbiprofen (Verified Allergy, Severe, ANAPHYLACTIC SHOCK, 02/01/18) SHOCK ibuprofen (Verified Allergy, Severe, ANAPHYLACTIC SHOCK, 02/01/18) SHOCK indomethacin (Verified Allergy, Severe, ANAPHYLACTIC SHOCK, 02/01/18) SHOCK ketoprofen (Verified Allergy, Severe, ANAPHYLACTIC SHOCK, 02/01/18) SHOCK ketorolac (Verified Allergy, Severe, ANAPHYLACTIC SHOCK, 02/01/18) SHOCK naproxen (Verified Allergy, Severe, ANAPHYLACTIC SHOCK, 02/01/18) SHOCK oxaprozin (Verified Allergy, Severe, ANAPHYLACTIC SHOCK, 02/01/18) SHOCK lisinopril (Verified Allergy, Mild, "MAKES MY FACE SWELL UP AND PREVENTS ME FROM BREATHING", 02/01/18) Reported Meds & Prescriptions Reported Meds & Active Scripts Active Morphine ER (Morphine Sulfate) 15 Mg Tab 15 Mg PO Q12H Oxycodone-Acetaminophen 10-325 (Oxycodone HCl/Acetaminophen) 10 Mg-325 Mg Tablet 1 Tab PO Q6H PRN Reported Zolpidem (Zolpidem Tartrate) 10 Mg Tab 10 Mg PO HS PRN Prednisone 2.5 Mg Tab 2.5 Mg PO DAILY Spironolactone 25 Mg Tab 25 Mg PO BID Oxygen (O2) Device Liter SRINATH.CANULA PRN PRN Oxygen Concentrator Portable Gaseous 2 L/min via Nasal Canula Continuous For 99 months Vitamin B Complex (B-Complex Vitamins) 1 Tab 1 Tab PO DAILY Ventolin Hfa 18 GM Inh (Albuterol Sulfate) 90 Mcg/Act Aer 2 Puff INH Q6H PRN Sertraline (Sertraline HCl) 50 Mg Tab 50 Mg PO DAILY Potassium Chloride ER (Potassium Chloride) 10 Meq Cap 10 Meq PO BID Multiple Vitamin 1 Tab 1 Tab PO DAILY Cholestyramine 4 Gm/Dose Powd 4 Gm PO BID PRN 1 level scoopful of powder contains 4 grams of cholestyramine. Spiriva Handihaler (Tiotropium Inh) 18 Mcg Cap 18 Mcg INH DAILY 1 capsule = 18 mcg Zantac (Ranitidine HCl) 150 Mg Tab 150 Mg PO BID Singulair (Montelukast Sodium) 10 Mg Tab 10 Mg PO HS Alprazolam 1 Mg Tab 2 Mg PO BID PRN Jessica Allergy (Fexofenadine HCl) 180 Mg Tab 180 Mg PO BID Amlodipine (Amlodipine Besylate) 5 Mg Tab 5 Mg PO DAILY Advair Diskus Inh (Fluticasone-Salmeterol Inh) 250-50 Mcg/Blist Aer 1 Puff INH BID Rinse mouth after use. Review of Systems Except as stated in HPI: all other systems reviewed are Neg General / Constitutional: No: Fever Physical Exam Narrative GENERAL: 67-year-old male pleasant well-nourished well-developed GENITOURINARY: There is minimal blood about the urethral meatus. There is no evidence of balanitis. There is no fullness in the pelvis. Vital Signs Date Time Temp Pulse Resp B/P (MAP) Pulse Ox O2 Delivery O2 Flow Rate FiO2 02/11/18 00:22 99.2 90 16 137/85 (102) 90 SKIN: Warm and dry. HEAD: Atraumatic. Normocephalic. EYES: Pupils equal and round. No scleral icterus. No injection or drainage. ENT: No nasal bleeding or discharge. Mucous membranes pink and moist. NECK: Trachea midline. No JVD. CARDIOVASCULAR: Regular rate and rhythm. RESPIRATORY: No accessory muscle use. Clear to auscultation. Breath sounds equal bilaterally. GASTROINTESTINAL: Abdomen soft, non-tender, nondistended. Hepatic and splenic margins not palpable. MUSCULOSKELETAL: Extremities without clubbing, cyanosis, or edema. No obvious deformities. NEUROLOGICAL: Awake and alert. No obvious cranial nerve deficits. Motor grossly within normal limits. Five out of 5 muscle strength in the arms and legs. Normal speech. PSYCHIATRIC: Appropriate mood and affect; insight and judgment normal. Data Data Last Documented VS Vital Signs Date Time Temp Pulse Resp B/P (MAP) Pulse Ox O2 Delivery O2 Flow Rate FiO2 02/11/18 02:56 83 16 141/85 (103) 95 Room Air 02/11/18 00:22 99.2 Orders Orders Basic Metabolic Panel (Bmp) (02/11/18 01:16) Complete Blood Count With Diff (02/11/18 01:16) Prothrombin Time / Inr (Pt) (02/11/18 01:16) Act Partial Throm Time (Ptt) (02/11/18 01:16) Urinalysis - C+S If Indicated (02/11/18 01:16) Iv Access Insert/Monitor (02/11/18 01:16) Ecg Monitoring (02/11/18 01:16) Oximetry (02/11/18 01:16) Sodium Chloride 0.9% Flush (Ns Flush) (02/11/18 01:30) Acetamin-Hydrocod 325-10 Mg (Hyden 10-32 (02/11/18 03:15) Labs Laboratory Tests Test 02/11/18 02:00 Prothrombin Time 10.0 SEC Prothromb Time International Ratio 1.0 RATIO Activated Partial Thromboplast Time 22.1 SEC Urine Color YELLOW Urine Turbidity CLEAR Urine pH 6.5 Urine Specific [place] 1.015 Urine Protein NEG mg/dL Urine Glucose (UA) NEG mg/dL Urine Ketones NEG mg/dL Urine Occult Blood MOD Urine Nitrite NEG Urine Bilirubin NEG Urine Urobilinogen LESS THAN 2.0 MG/DL Urine Leukocyte Esterase NEG Urine RBC 35 /hpf Urine WBC 1 /hpf Urine Squamous Epithelial Cells 1 /hpf Urine Bacteria RARE /hpf Microscopic Urinalysis Comment CULT NOT INDICATED Blood Urea Nitrogen 14 MG/DL Creatinine 0.97 MG/DL Random Glucose 121 MG/DL Calcium Level 9.0 MG/DL Sodium Level 142 MEQ/L Potassium Level 4.3 MEQ/L Chloride Level 106 MEQ/L Carbon Dioxide Level 29.6 MEQ/L Anion Gap 6 MEQ/L Estimat Glomerular Filtration Rate 77 ML/MIN MDM Medical Decision Making Medical Screen Exam Complete: Yes Emergency Medical Condition: Yes Medical Record Reviewed: Yes Differential Diagnosis Constipation, Gastritis, Acute Cholecystitis, Biliary Colic, Pancreatitis, RICHARD , Hepatitis, Bowel Obstruction, Cystitis, Mesenteric Ischemia, AAA, Appendicitis , Renal Stone/Hydronephrosis, GERD, perforated viscous Narrative Course CBC & BMP Diagram 02/11/18 02:00 Calcium Level 9.0 INR is 1.0 Hematuria is observed again. Abdominal ultrasound reveals approximately 400 cc of urine bladder. Patient is not retention. He is ready for discharge. Diagnosis Primary Impression: Hematuria Qualified Codes: R31.9 - Hematuria, unspecified Additional Impression: Chronic pain Qualified Codes: G89.29 - Other chronic pain Referrals: Orville Juarez MD call for appointment Med/Other Pt SpecificInfo: No Change to Meds Disposition: 01 DISCHARGE HOME Condition: Stable Fredrick Mcdonald MD Feb 11, 2018 02:19
[2018-02-11 02:28] LABS: AUTOMATED NEUTROPHIL # 3.7 TH/MM3 (1.8-7.7); BACTERIA, URINE RARE /hpf; BASOPHIL # 0.1 TH/MM3 (0-0.2); BASOPHIL % 1.8 % (0.0-2.0); BILIRUBIN, URINE NEG (NEG); BLOOD, URINE MOD (NEG); EOSINOPHIL # 0.4 TH/MM3 (0-0.4); EOSINOPHIL % 6.2 % (0.0-4.0); GLUCOSE,URINE NEG (NEG); HEMOGLOBIN 11.1 GM/DL (13.0-17.0); KETONE, URINE NEG (NEG); LYMPH % 30.5 % (9.0-44.0); LYMPHOCYTE # 2.2 TH/MM3 (1.0-4.8); MEAN CELL VOLUME 96.2 FL (80.0-100.0); MEAN CORPUSCULAR HEMOGLOBIN 33.4 PG (27.0-34.0); MEAN CORPUSCULAR HGB CONC 34.7 % (32.0-36.0); MEAN PLATELET VOLUME 10.3 FL (7.0-11.0); MONO % 9.6 % (0.0-8.0); MONOCYTE # 0.7 TH/MM3 (0-0.9); NEUT % 51.9 % (16.0-70.0); NITRITE,URINE NEG (NEG); PH, URINE 6.5 (5.0-8.5); PLATELET COUNT 253 TH/MM3 (150-450); RED BLOOD COUNT 3.32 MIL/MM3 (4.50-5.90); SQUAMOUS EPITHELIAL CELL URINE 1 /hpf (0-5); URINE COLOR YELLOW (YELLW/STRAW); URINE LEUKOCYTE ESTERASE NEG (NEG); WHITE BLOOD COUNT 7.1 TH/MM3 (4.0-11.0)
[2018-02-11 02:40] LABS: BICARBONATE 29.6 MEQ/L (21.0-32.0); CREATININE 0.97 MG/DL (0.60-1.30)
[2018-02-11 02:56] VITALS: BP 141/85; PULSE 83; RESP 16; O2SAT 95
[2018-02-11] MEDS ORDERED: ACETAMINOPHEN/HYDROcodone 325 MG/10 MG TAB PO ONE (03:15)
== END 2018-02-11 08:48 | disposition home or self-care (01) ==
LOC: NEPE 00:11
DX: R31.9 Hematuria, unspecified (principal); G89.29 Other chronic pain; M19.90 Unspecified osteoarthritis, unspecified site; F41.9 Anxiety disorder, unspecified; I71.4 Abdominal aortic aneurysm, without rupture; I10 Essential (primary) hypertension; E78.00 Pure hypercholesterolemia, unspecified; J44.9 Chronic obstructive pulmonary disease, unspecified; Z88.6 Allergy status to analgesic agent; Z86.73 Personal history of transient ischemic attack (TIA), and cerebral infarction without residual deficits
CPT/HCPCS: 80048; 81001; 85025; 85610; 85730; 99283

== ENCOUNTER 2018-03-14 13:40 | Emergency (ER) | payer MEDICARE ==
[~2018-03-14] VITALS: Ht 177.8 cm; Wt 98.0 kg
[2018-03-14 13:40] VITALS: BP 119/75; PULSE 93; RESP 20; TEMP 98.8; O2SAT 93
--- NOTE | 2018-03-14 14:00 | PD ---
HPI Chief Complaint: Respiratory Distress Time Seen by Provider: 13:50 Travel History International Travel<30 days: No Contact w/Intl Traveler<30days: No Traveled to known affect area: No History of Present Illness HPI This 67-year-old male is complaining of shortness of breath. He developed shortness of breath over the last few days. He stopped smoking about 20 years ago. He was a drinker but has not drank for several months. Said he been feeling very weak. Over the last few days he is developed some shortness of breath. He had back surgery on February 01. He went to rehab for 3 weeks and then was sent home is been home for several weeks now. He is not aware of any history of heart disease. He is not having chest pain. Is not aware of fever. He says he was hard to wake up this morning. Patient was in the hospital in December with shortness of breath and at that time was found to have pneumonia. He had a negative CT pulmonary angiogram at that time. He has a history of COPD. He is on prednisone, montelukast albuterol. 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) Cardiovascular Problems: Yes High Cholesterol: Yes Chemotherapy: No Chest Pain: No Congestive Heart Failure: No COPD: Yes Cerebrovascular Accident: Yes Diabetes: No Diminished Hearing: No Endocrine: No Gastrointestinal Disorders: Yes (acid reflux) GERD: No Glaucoma: No Genitourinary: Yes (WEAK HOLD, PROSTATE ISSUES) Headaches: Yes Hepatitis: No Hiatal Hernia: No Heparin Induced Thrombocytopen: No Hypertension: Yes (chol) Immune Disorder: No Kidney Stones: Yes Musculoskeletal: Yes (chronic BACK PAIN, VERTEBRAE FX, OA) Neurologic: No Psychiatric: Yes (anx) Reproductive: No Respiratory: Yes Immunizations Current: Yes Migraines: No Myocardial Infarction: No Radiation Therapy: No Renal Failure: No Seizures: No Sickle Cell Disease: No Sleep Apnea: Yes Thyroid Disease: No Ulcer: No Past Surgical History Abdominal Surgery: Yes (appendectomy) AICD: No Appendectomy: Yes Arteriovenous Shunt: No Body Medical Devices: HARDWARE IN RIGHT FOOT, 3 CAGES IN SPINE, CERVICLE SCREWS Cardiac Surgery: No Cholecystectomy: No Ear Surgery: No Endocrine Surgery: No Eye Surgery: Yes (CATARACTS GEN. ) Genitourinary Surgery: No Gynecologic Surgery: No Insulin Pump: No Joint Replacement: Yes (LEFT knee) Neurologic Surgery: Yes (EVACUATION OF subdural hematoma, CERVICAL CAGES PLACED , craniotomy ) Oral Surgery: Yes (T&A) Pacemaker: No Thoracic Surgery: Yes (growth removed from L side of chest under arm) Tonsillectomy: Yes Other Surgery: Yes (craniatomy,appendectomy, CTS surgery, 19 sinus surgeries) Social History Alcohol Use: No (QUIT) Tobacco Use: No (QUIT 1999, had smoked 46 years.) Substance Use: No Allergies-Medications (Allergen,Severity, Reaction): Coded Allergies: aspirin (Verified Allergy, Severe, ANAPHYLACTIC SHOCK, 03/14/18) SHOCK diclofenac (Verified Allergy, Severe, ANAPHYLACTIC SHOCK, 03/14/18) SHOCK etodolac (Verified Allergy, Severe, ANAPHYLACTIC SHOCK, 03/14/18) SHOCK flurbiprofen (Verified Allergy, Severe, ANAPHYLACTIC SHOCK, 03/14/18) SHOCK ibuprofen (Verified Allergy, Severe, ANAPHYLACTIC SHOCK, 03/14/18) SHOCK indomethacin (Verified Allergy, Severe, ANAPHYLACTIC SHOCK, 03/14/18) SHOCK ketoprofen (Verified Allergy, Severe, ANAPHYLACTIC SHOCK, 03/14/18) SHOCK ketorolac (Verified Allergy, Severe, ANAPHYLACTIC SHOCK, 03/14/18) SHOCK naproxen (Verified Allergy, Severe, ANAPHYLACTIC SHOCK, 03/14/18) SHOCK oxaprozin (Verified Allergy, Severe, ANAPHYLACTIC SHOCK, 03/14/18) SHOCK lisinopril (Verified Allergy, Mild, "MAKES MY FACE SWELL UP AND PREVENTS ME FROM BREATHING", 03/14/18) Reported Meds & Prescriptions Reported Meds & Active Scripts Active Reported Lovastatin 40 Mg Tab 40 Mg PO DAILY Advair Diskus Inh (Fluticasone-Salmeterol Inh) 250-50 Mcg/Blist Aer 1 Puff INH BID Rinse mouth after use. Alendronate (Alendronate Sodium) 70 Mg Tab 70 Mg PO Q7D Diphenhydramine (Diphenhydramine HCl) 25 Mg Tab 50 Mg PO HS PRN Calcium Carbonate 500 Mg Calcium (1250 Mg) Tab 1,250 Mg PO DAILY 1,250 mg calcium carbonate (500 mg elemental calcium) Zolpidem (Zolpidem Tartrate) 10 Mg Tab 10 Mg PO HS PRN Prednisone 2.5 Mg Tab 1.5 Mg PO DAILY Spironolactone 25 Mg Tab 25 Mg PO BID Oxygen (O2) Device Liter SRINATH.CANULA PRN PRN Oxygen Concentrator Portable Gaseous 2 L/min via Nasal Canula Continuous For 99 months Vitamin B Complex (B-Complex Vitamins) 1 Tab 1 Tab PO DAILY Ventolin Hfa 18 GM Inh (Albuterol Sulfate) 90 Mcg/Act Aer 2 Puff INH Q6H PRN Sertraline (Sertraline HCl) 50 Mg Tab 50 Mg PO DAILY Potassium Chloride ER (Potassium Chloride) 10 Meq Cap 10 Meq PO BID Multiple Vitamin 1 Tab 1 Tab PO DAILY Cholestyramine 4 Gm/Dose Powd 4 Gm PO BID PRN 1 level scoopful of powder contains 4 grams of cholestyramine. Spiriva Handihaler (Tiotropium Inh) 18 Mcg Cap 18 Mcg INH DAILY 1 capsule = 18 mcg Zantac (Ranitidine HCl) 150 Mg Tab 150 Mg PO BID Singulair (Montelukast Sodium) 10 Mg Tab 10 Mg PO HS Alprazolam 1 Mg Tab 2 Mg PO BID PRN Jessica Allergy (Fexofenadine HCl) 180 Mg Tab 180 Mg PO DAILY Amlodipine (Amlodipine Besylate) 5 Mg Tab 5 Mg PO DAILY Advair Diskus Inh (Fluticasone-Salmeterol Inh) 250-50 Mcg/Blist Aer 1 Puff INH BID Rinse mouth after use. Review of Systems General / Constitutional: No: Fever, Chills Eyes: No: Diploplia HENT: No: Headaches, Vertigo Cardiovascular: No: Chest Pain or Discomfort, Palpitations Gastrointestinal: No: Nausea, Vomiting Genitourinary: No: Urgency, Frequency Musculoskeletal: Positive: Myalgias Skin: No Rash Neurologic: Positive: Weakness, No: Syncope, Focal Abnormalities Endocrine: No: Heat Intolerance, Cold Intolerance Hematologic/Lymphatic: No: Easy Bruising Physical Exam Narrative GENERAL: Well-developed male SKIN: Focused skin assessment warm/dry. HEAD: Atraumatic. Normocephalic. EYES: Pupils equal and round. No scleral icterus. No injection or drainage. ENT: No nasal bleeding or discharge. Mucous membranes pink and moist. NECK: Trachea midline. No JVD. CARDIOVASCULAR: Regular rate and rhythm. No murmur appreciated. RESPIRATORY: No accessory muscle use. Clear to auscultation. Breath sounds equal bilaterally. GASTROINTESTINAL: Abdomen soft, non-tender, nondistended. Hepatic and splenic margins not palpable. MUSCULOSKELETAL: No obvious deformities. No clubbing. No cyanosis. No edema. NEUROLOGICAL: Awake and alert. No obvious cranial nerve deficits. Motor grossly within normal limits. Normal speech. PSYCHIATRIC: Appropriate mood and affect; insight and judgment normal. Data Data Last Documented VS Vital Signs Date Time Temp Pulse Resp B/P (MAP) Pulse Ox O2 Delivery O2 Flow Rate FiO2 03/14/18 15:29 88 18 120/71 (87) 95 Nasal Cannula 2.00 03/14/18 13:40 98.8 Orders Orders Complete Blood Count With Diff (03/14/18 13:43) Iv Access Insert/Monitor (03/14/18 13:43) Ecg Monitoring (03/14/18 13:43) Oxygen Administration (03/14/18 13:43) Oximetry (03/14/18 13:43) Electrocardiogram (03/14/18 13:43) Comprehensive Metabolic Panel (03/14/18 13:57) Troponin I (03/14/18 13:57) B-Type Natriuretic Peptide (03/14/18 13:57) Prothrombin Time / Inr (Pt) (03/14/18 13:57) Act Partial Throm Time (Ptt) (03/14/18 13:57) Urinalysis - C+S If Indicated (03/14/18 13:57) Chest, Single Ap (03/14/18 13:57) Lactic Acid (03/14/18 14:11) Ct Pulmonary Angiogram (03/14/18 14:43) Iohexol 350 Inj (Omnipaque 350 Inj) (03/14/18 15:44) Hydrocortisone Inj (Solucortef Inj) (03/14/18 16:15) Labs Laboratory Tests Test 03/14/18 14:10 03/14/18 16:00 White Blood Count 9.0 TH/MM3 Red Blood Count 3.76 MIL/MM3 Hemoglobin 12.4 GM/DL Hematocrit 35.6 % Mean Corpuscular Volume 94.7 FL Mean Corpuscular Hemoglobin 33.0 PG Mean Corpuscular Hemoglobin Concent 34.8 % Red Cell Distribution Width 14.1 % Platelet Count 206 TH/MM3 Mean Platelet Volume 10.7 FL Neutrophils (%) (Auto) 80.7 % Lymphocytes (%) (Auto) 10.1 % Monocytes (%) (Auto) 5.9 % Eosinophils (%) (Auto) 0.3 % Basophils (%) (Auto) 3.0 % Neutrophils # (Auto) 7.3 TH/MM3 Lymphocytes # (Auto) 0.9 TH/MM3 Monocytes # (Auto) 0.5 TH/MM3 Eosinophils # (Auto) 0.0 TH/MM3 Basophils # (Auto) 0.3 TH/MM3 CBC Comment DIFF FINAL Differential Comment Prothrombin Time 10.7 SEC Prothromb Time International Ratio 1.1 RATIO Activated Partial Thromboplast Time 25.2 SEC Blood Urea Nitrogen 12 MG/DL Creatinine 1.00 MG/DL Random Glucose 156 MG/DL Total Protein 6.6 GM/DL Albumin 3.3 GM/DL Calcium Level 8.1 MG/DL Alkaline Phosphatase 92 U/L Aspartate Amino Transf (AST/SGOT) 17 U/L Alanine Aminotransferase (ALT/SGPT) 21 U/L Total Bilirubin 0.5 MG/DL Sodium Level 139 MEQ/L Potassium Level 4.0 MEQ/L Chloride Level 103 MEQ/L Carbon Dioxide Level 30.0 MEQ/L Anion Gap 6 MEQ/L Estimat Glomerular Filtration Rate 74 ML/MIN Lactic Acid Level 2.2 mmol/L Troponin I LESS THAN 0.02 NG/ML B-Type Natriuretic Peptide 207 PG/ML Urine Collection Type CLEAN CATCH Urine Color YELLOW Urine Turbidity CLEAR Urine pH 5.5 Urine Specific [place] 1.020 Urine Protein NEG mg/dL Urine Glucose (UA) NEG mg/dL Urine Ketones NEG mg/dL Urine Occult Blood TRACE Urine Nitrite NEG Urine Bilirubin NEG Urine Urobilinogen 0.2 MG/DL Urine Leukocyte Esterase NEG Urine RBC 0-3 /hpf Urine WBC 0-2 /hpf Urine Squamous Epithelial Cells 0-5 /hpf Microscopic Urinalysis Comment CULT NOT INDICATED Urine Collection Time 16:00 [facility] [place] Medical Decision Making Medical Screen Exam Complete: Yes Emergency Medical Condition: Yes Medical Record Reviewed: Yes Differential Diagnosis Differential includes pneumonia, COPD exacerbation, PE Narrative Course Because of the patient's recent surgery was concerned about the possibility of pulmonary embolus. A CTA has been done and is negative for pulmonary embolus and pneumonia. His hemoglobin is 12 which is similar to his usual value. Electrolytes are normal. Urinalysis he has been given 100 mg of intravenous Solu-Cortef. His vital signs are stable and he is stable for discharge Diagnosis Primary Impression: COPD (chronic obstructive pulmonary disease) Additional Instructions: Take medications as directed Disposition: 01 DISCHARGE HOME Condition: Stable Austin Jones MD March 14, 2018 14:00
[2018-03-14 14:24] LABS: AUTOMATED NEUTROPHIL # 7.3 TH/MM3 (1.8-7.7); BASOPHIL # 0.3 TH/MM3 (0-0.2); EOSINOPHIL % 0.3 % (0.0-4.0); HEMATOCRIT 35.6 % (39.0-51.0); HEMOGLOBIN 12.4 GM/DL (13.0-17.0); LYMPH % 10.1 % (9.0-44.0); LYMPHOCYTE # 0.9 TH/MM3 (1.0-4.8); MEAN CELL VOLUME 94.7 FL (80.0-100.0); MEAN CORPUSCULAR HGB CONC 34.8 % (32.0-36.0); MEAN PLATELET VOLUME 10.7 FL (7.0-11.0); MONO % 5.9 % (0.0-8.0); MONOCYTE # 0.5 TH/MM3 (0-0.9); NEUT % 80.7 % (16.0-70.0); PLATELET COUNT 206 TH/MM3 (150-450); RED BLOOD COUNT 3.76 MIL/MM3 (4.50-5.90); RED CELL DISTRIBUTION WIDTH 14.1 % (11.6-17.2)
--- NOTE | 2018-03-14 14:30 | RADRPT ---
EXAM DATE/TIME: 03/14/2018 14:12 [facility] COMPARISON: CHEST SINGLE AP, January 19, 2018, 2:31. INDICATIONS : Short of breath. MEDICAL HISTORY : Carcinoma, squamous cell. Hypertension. Chronic obstructive pulmonary disease SURGICAL HISTORY : Fusion, cervical. Total knee replacement, left. Appendectomy. Rt foot ORIF.Subdural hematoma. Spinal surgery ENCOUNTER: Initial ACUITY: 4 - 6 days PAIN SCORE: 0/10 LOCATION: Bilateral chest FINDINGS: Persistent elevation right hemidiaphragm with linear atelectatic changes right lung base. Left lung clear. The heart and pulmonary vascularity are normal. The portion of the bony skeleton visualized is unrema rkable. . CONCLUSION: Minimal nonspecific parenchymal changes right base probably atelectasis. No consolidation or failure. Sumit Pop MD FACR on March 14, 2018 at 14:27 Board Certified Radiologist. This report was verified electronically.
[2018-03-14 14:34] LABS: CHLORIDE 103 MEQ/L (98-107); SODIUM (NA) 139 MEQ/L (136-145)
[2018-03-14] MEDS ORDERED: ALEN1TAB48 PO (14:36)
[2018-03-14] MEDS ORDERED: ADVA250A INH (14:36)
[2018-03-14] MEDS ORDERED: CALC12502 PO (14:36)
[2018-03-14] MEDS ORDERED: LOVA40TA PO (14:36)
[2018-03-14] MEDS ORDERED: DIPH25TA2 PO (14:36)
[2018-03-14 14:38] LABS: ALBUMIN 3.3 GM/DL (3.4-5.0); BLOOD UREA NITROGEN 12 MG/DL (7-18); CALCIUM 8.1 MG/DL (8.5-10.1); GLUCOSE,RANDOM 156 MG/DL (74-106)
[2018-03-14 14:39] LABS: INTERNATIONAL NORMALIZED RATIO 1.1 RATIO; PROTHROMBIN TIME - PATIENT 10.7 SEC (9.8-11.6)
[2018-03-14 14:41] LABS: ALT (GPT) 21 U/L (12-78); AST (GOT) 17 U/L (15-37); GLOMERULAR FILTRATION RATE 74 ML/MIN (>89)
[2018-03-14 14:43] LABS: TOTAL BILIRUBIN ADULT 0.5 MG/DL (0.2-1.0); TOTAL PROTEIN 6.6 GM/DL (6.4-8.2)
[2018-03-14 14:44] LABS: ALKALINE PHOSPHATASE 92 U/L (45-117)
[2018-03-14 14:46] LABS: TROPONIN I LESS THAN 0.02 NG/ML (0.02-0.05)
[2018-03-14 15:29] VITALS: BP 120/71; PULSE 88; RESP 18; O2SAT 95
[2018-03-14] MEDS ORDERED: IOHEXOL 350 MG/ML 10 ML VIAL (for RAD DIAG) IVCONTRAST ONE (15:44)
--- NOTE | 2018-03-14 15:58 | RADRPT ---
EXAM DATE/TIME: 03/14/2018 15:34 [facility] COMPARISON: No previous studies available for comparison. INDICATIONS : Short of breath. IV CONTRAST: 65 cc Omnipaque 350 (iohexol) IV RADIATION DOSE: 19.16 CTDIvol (mGy) MEDICAL HISTORY : Hypertension. Chronic obstructive pulmonary disease. Renal calculi. SURGICAL HISTORY : Appendectomy. Fusion, cervical.Growth removed from side of chest. ENCOUNTER: Initial ACUITY: 4 - 6 days PAIN SCALE: 0/10 LOCATION: chest TECHNIQUE: Volumetric scanning of the chest was performed using a pulmonary embolism protocol MIP images were re constructed. Using automated exposure control and adjustment of the mA and/or kV according to patien t size, radiation dose was kept as low as reasonably achievable to obtain optimal diagnostic quality images. DICOM format image data is available electronically for review and comparison. Follow-up recommendations for detected pulmonary nodules are based at a minimum on nodule size and pa tient risk factors according to Fleischner Society Guidelines. FINDINGS: The lungs are clear. There is mild compensated cardiomegaly. There is no central pulmonary emboli. There is no significant coronary calcifications There is no axillary adenopathy. There is no mediastinal adenopathy. Upper abdominal contents are u nremarkable. CONCLUSION: Negative for central pulmonary emboli. Lungs are clear. Sumit Pop MD FACR on March 14, 2018 at 15:53 Board Certified Radiologist. This report was verified electronically.
[2018-03-14 16:12] LABS: BILIRUBIN, URINE NEG (NEG); BLOOD, URINE TRACE (NEG); GLUCOSE,URINE NEG (NEG); KETONE, URINE NEG (NEG); NITRITE,URINE NEG (NEG); PH, URINE 5.5 (5.0-8.5); URINE COLOR YELLOW (YELLW/STRAW); URINE LEUKOCYTE ESTERASE NEG (NEG)
[2018-03-14] MEDS ORDERED: HYDROCORTISONE SOD SUCCINATE 100 MG VIAL IV PUSH ONE (16:15)
[2018-03-14 16:28] LABS: RBC, URINE 0-3 /hpf (0-3); SQUAMOUS EPITHELIAL CELL URINE 0-5 /hpf (0-5); WBC, URINE 0-2 /hpf (0-5)
[2018-03-14 17:19] VITALS: BP 148/87
--- NOTE | 2018-03-15 09:51 | EKG ---
Date Performed: 03/14/2018 Time Performed: 13:50:41 PTAGE: 67 years EKG: Sinus rhythm MARKED LEFT AXIS DEVIATION LOW QRS VOLTAGE IN PRECORDIAL LEADS ABNORMAL ECG Compared to PREVIOUS TRACING , the patient is no logner tachycardic. PREVIOUS TRACIN01/19/2018 02. 12 DOCTOR: Nadege Hobbs Interpretating Date/Time 03/15/2018 09:51:08
== END 2018-03-14 17:20 | disposition home or self-care (01) ==
LOC: PHED 13:40
DX: J44.9 Chronic obstructive pulmonary disease, unspecified (principal); R94.31 Abnormal electrocardiogram [ECG] [EKG]; M19.90 Unspecified osteoarthritis, unspecified site; F41.9 Anxiety disorder, unspecified; E78.00 Pure hypercholesterolemia, unspecified; K21.9 Gastro-esophageal reflux disease without esophagitis; I10 Essential (primary) hypertension; G47.30 Sleep apnea, unspecified; Z86.73 Personal history of transient ischemic attack (TIA), and cerebral infarction without residual deficits
CPT/HCPCS: 71045; 71275; 80053; 81001; 83605; 83880; 84484; 85025; 85610; 85730; 93005; 96374; 99285; J1720; Q9967